=== PATIENT | male | born 1945 | race Caucasian/White ===

== ENCOUNTER 2016-09-30 19:48 | Inpatient (IN) ==
--- NOTE | 2016-09-30 20:27 | Emergency Department Note ---
START Narrative - START START: I examined this patient and my medical decision-making was reviewed with the SANDING MACHINE BUFFER/PA/Advanced Practice Nurse/Resident Physician. I agree with the documented findings, disposition and treatment plan as described except to the extent set forth below. ED attending note: Patient seen with the emergency medicine resident . Please see a copy of his note for details of the H&P, evaluation and management and disposition of this emergency Department patient. We independently had [id number] contact with the patient. Briefly: 71-year-old gentleman transferred from the [facility] for chest pain rule out acute coronary syndrome. Negative troponin. History of alcoholic cirrhotic liver disease but not of his benzos for about 2 weeks and shaky. Hypomagnesemic and 1.4. Questionable syncopal episode. Having expiratory wheezing and some hypoxia consistent with COPD flare. Admission order placed. Patient getting DuoNeb treatments here. Reviewed his paperwork and his trunk. Provided an additional 30 minutes of critical care services this patient. Awaiting hospitalist call back.
[2016-09-30] MEDS ORDERED: Ipratropium/Albuterol Neb 3 ML IH ONE (20:29)
[2016-09-30] MEDS ORDERED: methylPREDNISolone 125 MG/2 ML VIAL IVP ONE (20:40)
[2016-09-30] MEDS ORDERED: *HR* LORazepam 2 MG/ML VIAL IVP ONE (20:46)
--- NOTE | 2016-09-30 20:54 | Emergency Department Note ---
Disposition Clinical Impression: COPD exacerbation Chest pain Qualifiers: Chest pain type: unspecified Qualified Code(s): R07.9 - Chest pain, unspecified Alcohol dependence Qualifiers: Substance use status: unspecified alcohol-induced disorder Qualified Code(s): F10.29 - Alcohol dependence with unspecified alcohol-induced disorder Disposition: Admitted As Inpatient Condition: Good Referrals: NO,PCP [Non-Partnered Physician] - Forms: ED Satisfaction Letter Chest Pain HPI - General Chief Complaint: ED Chest Pain Stated Complaint: Chest Pain Time Seen by Provider: 09/30/16 19:54 Source: patient, EMS Limitations: no limitations Vital Signs Reviewed: Yes Nursing Notes Reviewed: Yes - History of Present Illness HPI Narrative: [facility] for chest pain workup in syncope evaluation. Patient has a history of CHF, anemia, seizures, COPD, depression, hepatitis, alcoholism. Patient describes initial symptoms starting his URI day prior to [place]. Reason for going to the [place] urgent [facility] today was for evaluation of increasing dyspnea and chest tightness that had relief with DuoNeb's but would return. Patient noticed his pulse ox dropping into the high 80s. Patient had loss of approximately 1 hour's worth of time but is related to possible syncope. Patient did not come to the hospital prior to she is concerned that this is his last [place]. Patient does have a history of depression and PTSD but has not been treated with medications for the last 2 weeks secondary to him missing one of his appointments. Patient also states that he takes Ativan but has been unable to secondary to missing his last refill. Severity scale (1-10): 0 - Related Data Home Medications Medication Instructions Recorded Confirmed Albuterol Sulfate [Albuterol 2 puff IH QID PRN 05/07/15 06/30/16 Inhaler] Folic Acid 1 mg PO DAILY 05/07/15 06/30/16 Formoterol Fumarate [Foradil] 12 mcg IH BID PRN 05/07/15 06/30/16 Isosorbide MONOnitrate [Isosorbide 60 mg PO DAILY 05/07/15 06/30/16 Mononitrate ER] Multivitamin [Multivitamins] 1 cap PO DAILY 05/07/15 06/30/16 Nitroglycerin [Nitrostat] 0.4 mg SL AD PRN 05/07/15 06/30/16 Omeprazole [PriLOSEC] 20 mg PO BID 05/07/15 06/30/16 Thiamine HCl [Vitamin B-1] 100 mg PO DAILY 05/07/15 06/30/16 Tiotropium [Spiriva] 18 mcg IH DAILY 05/07/15 06/30/16 Albuterol Neb [Proventil Neb] 2.5 mg IH Q6H PRN 04/24/16 06/30/16 Polyvinyl Alcohol [Artificial 1 drop BOTH EYES BID 04/24/16 06/30/16 Tears] Sucralfate [Carafate] 1 gm PO ACHS 04/24/16 06/30/16 TraMADol [Ultram] 50 mg PO Q6HR 04/24/16 06/30/16 Acetaminophen [Tylenol] 650 mg PO Q6HR PRN 06/30/16 06/30/16 Benzonatate [Tessalon] 100 mg PO TID 06/30/16 06/30/16 Guaifenesin [Diabetic Tussin Ex] 5 ml PO Q6H PRN 06/30/16 06/30/16 Ipratropium/Albuterol Neb [Duoneb] 3 ml IH Q8H PRN 06/30/16 06/30/16 Mometasone Furoate [Asmanex] 220 mcg IH DAILY 06/30/16 06/30/16 Phenytoin ER [Dilantin ER] 200 mg PO QAM 06/30/16 06/30/16 Phenytoin ER [Dilantin ER] 300 mg PO HS 06/30/16 06/30/16 Previous Rx's Medication Instructions Recorded Clopidogrel [Plavix] 75 mg PO DAILY #14 tablet 06/25/15 Magnesium Oxide [Mag-Ox] 400 mg PO BID #0 tablet 09/02/15 Sertraline [Zoloft] 150 mg PO QAM 30 Days 09/02/15 Chlordiazepoxide [Librium] 25 mg PO BIDWM #7 capsule 03/11/16 Cholecalciferol (Vitamin D3) 5,000 unit PO DAILY #30 capsule 03/11/16 [Dialyvite Vitamin D] Digoxin [Lanoxin] 0.125 mg PO DAILY tablet 03/11/16 Melatonin 12 mg PO HS PRN #0 tablet 03/11/16 Metoprolol XL (24 HR) Succ [Toprol 50 mg PO BID tab.er.24h 03/11/16 Xl] Furosemide [Lasix] 40 mg PO DAILY 30 Days 04/28/16 Potassium Chloride 20 meq PO DAILY 30 Days 04/28/16 Primidone [Mysoline] 125 mg PO TID tablet 04/28/16 Acetylcysteine 10% 2 ml MC Q8H #12 vial 05/12/16 Chlordiazepoxide [Librium] 25 mg PO BID PRN #14 capsule 07/02/16 PredniSONE 10 mg PO DAILY #41 tablet 07/02/16 RisperiDONE [RisperDAL] 0.5 mg PO HS #60 tablet 07/02/16 Allergies Allergy/AdvReac Type Severity Reaction Status Date / Time Penicillins Allergy Severe Anaphylaxis Verified 06/30/16 18:09 diphenhydramine Allergy See Verified 09/30/16 19:52 Comments fentanyl Allergy See Verified 09/30/16 19:52 Comments lidocaine Allergy See Verified 09/30/16 19:52 Comments midazolam Allergy See Verified 09/30/16 19:52 Comments venlafaxine [From Effexor] AdvReac Unknown See Verified 06/30/16 18:09 Comments All systems ED: reviewed and negative except as stated. Constitutional: Reports: chills. Denies: fever Eyes: Denies: eye pain ENT ED: Denies: ear pain Cardiovascular: Reports: chest pain. Denies: palpitations Respiratory: Reports: wheezes. Denies: cough Gastrointestinal: Denies: abdominal pain, nausea Genitourinary: Denies: urgency, dysuria Musculoskeletal: Denies: back pain, neck pain Integumentary: Denies: rash Neurological: Denies: headache, weakness Psychiatric: Denies: anxiety Endocrine: Denies: fatigue Hematological/Lymphatic: Denies: easy bleeding, easy bruising Allergic/Immunologic: Denies: facial swelling Chest Pain PMH - Past Medical History Medical history: Reports: asthma, atrial fibrillation, cirrhosis, COPD, coronary artery disease, GERD, GI bleed, hypertension, liver disease, seizures, other. Denies: no medical history Surgical history: Reports: no surgical history Psychiatric history: Reports: depression, PTSD - Social History Smoking Status: Current some day smoker Alcohol use: Reports: heavy Drug use: Reports: none Physical Exam - General Limitations: no limitations General appearance: alert, in no apparent distress - Head Head exam: atraumatic, normocephalic - Eye Eye exam: Present: normal appearance, PERRL - ENT ENT exam: normal exam, normal oropharynx - Neck Neck exam: Present: normal inspection - Chest Chest inspection: Present: normal inspection, symmetric chest wall rise - Respiratory Respiratory exam: Present: wheezes (Significant bilaterally) - Cardiovascular Cardiovascular exam: Present: regular rate, normal rhythm - Abdominal Exam Abdominal exam: Present: soft, Non-Tender, other (Hepatomegaly) - Extremities Exam Extremities exam: Present: normal inspection, full ROM Course Course Narrative: Chest x-ray performed at [facility] with impression of no significant interval change since previous study. Was noted to have prominence of bilateral reticular markings and bibasilar atelectasis. Troponin negative. Alcohol less than 3. AST 8 LC bilirubin normal. Magnesium of 1.4 which is low normal of 1.8. Potassium 3.8. Creatinine 0.76. Sodium of 142. Chloride 107. CO2 25. - Reevaluation(s) Reevaluation #1: On reevaluation patient's continues to be asymptomatic with chest pain. Given nebs improved patient's wheezing. Please patient's chest pain is related to COPD exacerbation however due to the patient's chest pain etiology as well as concern for syncopal episode patient will need admission for further evaluation and observation. - Consultations Consultation #1: Discussed with Dr. Damon. Dr. Damon requests CT of the head as patient lost consciousness for approximately 1 hour. Vital Signs Temperature 98.0 F 09/30/16 19:49 Pulse Rate 84 09/30/16 19:49 Respiratory Rate 18 09/30/16 19:49 Blood Pressure 148/105 09/30/16 19:49 O2 Sat by Pulse Oximetry 98 09/30/16 19:49 Temperature 98.0 F 09/30/16 19:49 Pulse Rate 95 09/30/16 21:18 Respiratory Rate 18 09/30/16 21:18 Blood Pressure 157/93 09/30/16 21:18 O2 Sat by Pulse Oximetry 99 09/30/16 21:18 Oxygen Delivery Oxygen Delivery Nasal Cannula Chest Pain - Medical Records Medical records reviewed: Yes I reviewed the patient's medical records. - Lab Data Lab results reviewed: Yes I reviewed the patient's lab results. - Radiology Data Radiology results reviewed: Yes I reviewed the patient's radiology results. - EKG Data EKG attestation: Yes I reviewed and interpreted this EKG. EKG results narrative: EKG shows junctional rhythm at a ventricular rate of 84 bpm. IA interval 98. QRS 94. QTC 409. Patient has no ST elevations or depressions. Patient has inverted T waves in v2. No specific acute changes when compared to 06/29/16.
[2016-09-30] MEDS ORDERED: Naloxone 0.4 MG/ML INJ IVP PRN (23:11)
[2016-09-30] MEDS ORDERED: Ondansetron ODT 4 MG TAB.RAPDIS SL PRN (23:11)
[2016-09-30] MEDS ORDERED: *HR* LORazepam 2 MG/ML VIAL IVP PRN (23:16)
--- NOTE | 2016-09-30 23:46 | Internal Med History&Physical ---
Date of Encounter: 09/30/16 Time of Encounter: 23:34 Assessment and Plan (1) Acute exacerbation of chronic obstructive airways disease Current visit: No Status: Acute worsening shortness of breath and chest tightness. Lungs sound rhonchorus on exam. Chest x-ray performed at [facility] urgent care with impression of no significant interval change since previous study. Was noted to have prominence of bilateral reticular markings and bibasilar atelectasis. Solumedrol 125mg IVP given in ED Prednisone 40mg PO daily duoneb treatments q4hr Azithromycin 500mg IVPB daily (2) Acute and chronic respiratory failure Current visit: No Status: Acute Wears 4L NC at home and bipap at night. Satting 94-99% on 4L titrate O2 to maintain O2 sat > 92% duoneb treatments Q4hr Qualifiers: Respiratory failure complication: unspecified whether with hypoxia or hypercapnia Qualified Code(s): J96.20 - Acute and chronic respiratory failure , unspecified whether with hypoxia or hypercapnia (3) Chest pain Current visit: Yes Status: Acute Reporting worsening chest "tightness". Likely related to acute COPD exacerbation, but with history of CAD and stent placement will monitor for cardiac source. Initial troponin from CT negative continous recruiting coordinator trend troponins consult cardiology Qualifiers: Chest pain type: chest pain on breathing Qualified Code(s): R07.1 - Chest pain on breathing (4) Syncope Current visit: Yes Status: Acute Patient reports episode this morning of loss of consiousness for 1 hour after sitting down for a nebulizer treatment. He has a history of seizure disorder but does not think this was a seizure. He is an alcoholic, but denies drinking more than usual prior to episode. He has a history of paroxysmal afib, rate controlled with beta rahel and digoxin. CT Head negative for acute abnormality. continuous recruiting coordinator home dose of anti-seizure medication [facility] protocol for alchohol withdrawal EEG Qualifiers: Syncope type: unspecified Qualified Code(s): R55 - Syncope and collapse (5) Chronic systolic (congestive) heart failure Current visit: Yes Status: Acute Last Echo in March 2016 showed moderate systolic dysfunction with EF of 35-40% continue home dose of lasix, diltiazem, isosorbide mononitrate. consult cardiology (6) Alcohol abuse Current visit: No Status: Chronic Patient reports drinking daily, and reports he goes through 2 liters of whiskey per week. This is cut back from previous usage. He has a significant right hand tremor, he reports is chronic, and on review of the records this was evaluated by neuro during a hospitalization in March. [facility] protocol for Alcohol withdrawal. (7) History of seizure disorder Current visit: No Status: Chronic Patient reports he has not been taking his dilantin consistently. Reports he has not had a seizure for 6 years. However, episode of syncope this morning is concerning. continue home dose of dilantin EEG (8) Paroxysmal atrial fibrillation Current visit: No Status: Chronic History of paroxysmal Afib. Heart with regular rate and rhythm on exam. EKG showed junctional rhythm. On plavix presumably due to stent placement in November of 2014. No anti-coagulation due to history of multiple GI bleeds and alcoholism. Continuous recruiting coordinator. Consult cardiology. (9) DVT prophylaxis Current visit: No Status: Acute ambulate with assistance. anti-embolic stockings Pharmacologic prophylaxis contraindicated due to history of multiple GI bleeds. Internal Medicine - H&P: HPI Chief complaint: SOB, chest tightness Admitted From: Home Plans for Post Hospital Care: Home History of present illness: Mr. Salmon is a 71 year old male with history of COPD, Chronic systolic congestive heart failure, seizure disorder, CAD, and alcoholism, who was transferred to the ED from the [place] with complaints of worsening shortness of breath, chest tightness, and an episode of syncope this morning. He reports he has had a cough for 3 months, worsening in the last week. It is generally a dry cough, but after a nebulizer treatment it is productive of white sputum. He reports the chest tightness has also been worsening in the last week. It is somewhat relieved by his nebulizer treatments but returns fairly quickly. He is on 4 L NC of O2 at home for his COPD. He also reports that this morning he sat down to take a nebulizer treatment and lost consciousness, awaking 1 hour later, and unsure of what happened. He states he did not fall asleep. He has a history of seizure disorder and does not think it was a seizure. He reports he has run out of some of his medications including his anti-seizure medication and his ativan. He denies headache, dizziness, lightheadedness, focal weakness , palpitations. He has a history of afib, and is on beta rahel and digoxin for rate control, but not on any anticoagulation due to history of multiple GI bleeds and alcoholism. CT Head in the ED showed no acute abnormality. On exam , he is alert and oriented, satting 94-99% on 4L NC. His lungs sound diffusely rhonchorus. Heart with regular rate and rhythm. Past Med Surg Social Fam HX - Past Medical History Medical history: asthma, atrial fibrillation, cirrhosis, COPD, coronary artery disease, GERD, GI bleed, hypertension, liver disease, seizures, other Psychiatric history: depression, PTSD - Past Surgical History Surgical History: angioplasty/stent - Social History Smoking Status: Current some day smoker Smokeless Tobacco Status: No Alcohol use: heavy Drug use: none - Family History Father Adopted: No Family Member Ethnicity: Non- Living Status: Hx Family Cardiac Disorders: Yes Hx Family Respiratory Disorders: Yes Hx Family Cancer: Yes Hx Family GI Disorders: No Hx Family Endocrine Disorder: No Hx Family Neuromuscular Disorders: No Hx Family Neurologic Disorders: No Hx Family HEENT Disorders: No Hx Family Autoimmune Disorders: No Mother Adopted: No Family Member Ethnicity: Non- Living Status: Hx Family Cancer: Yes (panc) Internal Medicine - H&P: Meds Albuterol Sulfate [Albuterol Inhaler] 2 puff IH QID PRN 05/07/15 [History] Folic Acid 1 mg PO DAILY 05/07/15 [History] Isosorbide MONOnitrate [Isosorbide Mononitrate ER] 30 mg PO DAILY 05/07/15 [ History] Omeprazole [PriLOSEC] 20 mg PO BID 05/07/15 [History] Thiamine HCl [Vitamin B-1] 100 mg PO DAILY 05/07/15 [History] Tiotropium [Spiriva] 18 mcg IH DAILY 05/07/15 [History] Clopidogrel [Plavix] 75 mg PO DAILY #14 tablet 06/25/15 [Rx] Magnesium Oxide [Mag-Ox] 400 mg PO BID #0 tablet 09/02/15 [Rx] Albuterol Neb [Proventil Neb] 2.5 mg IH Q6H PRN 04/24/16 [History] Sucralfate [Carafate] 1 gm PO QID 04/24/16 [History] Potassium Chloride 20 meq PO DAILY 30 Days 04/28/16 [Rx] Mometasone Furoate [Asmanex] 220 mcg IH DAILY 06/30/16 [History] Phenytoin ER [Dilantin ER] 200 mg PO QAM 06/30/16 [History] Aspirin [Lo-Dose Aspirin EC] 81 mg PO DAILY 09/30/16 [History] Buspirone HCl [Buspar] 7.5 mg PO BID PRN 09/30/16 [History] Cyanocobalamin (Vitamin B-12) [Vitamin B-12] 100 mcg PO HS 09/30/16 [History] Diltiazem HCl [Diltiazem 24Hr Cd] 240 mg PO DAILY 09/30/16 [History] Ferrous Gluconate 324 mg PO DAILY 09/30/16 [History] Furosemide [Lasix] 20 mg PO QPM 09/30/16 [History] Furosemide [Lasix] 40 mg PO QAM 09/30/16 [History] Melatonin 9 mg PO HS PRN 09/30/16 [History] Multivitamin with Minerals [Myvitalife] 1 each PO DAILY 09/30/16 [History] Olodaterol HCl [Striverdi Respimat] 2 puff IH DAILY 09/30/16 [History] Prazosin [Minipress] 3 mg PO HS 09/30/16 [History] Sertraline [Zoloft] 50 mg PO QAM 09/30/16 [History] Allergies Penicillins Allergy (Severe, Verified 06/30/16 18:09) Anaphylaxis diphenhydramine Allergy (Verified 09/30/16 19:52) See Comments fentanyl Allergy (Verified 09/30/16 19:52) See Comments lidocaine Allergy (Verified 09/30/16 19:52) See Comments midazolam Allergy (Verified 09/30/16 19:52) See Comments venlafaxine [From Effexor] Adverse Reaction (Unknown, Verified 06/30/16 18:09) See Comments "Made me go into a coma." All Systems PM: A 10-system review of systems was performed and is negative for pertinent findings except as documented above in the HPI. - Constitutional Constitutional: no chills, no fever(s), no night sweats - EENT Eyes: no change in vision, no discharge, no pain, no photophobia Nose, mouth and throat: no dysphagia, no nasal discharge, no neck pain, no sore throat - Cardiovascular Cardiovascular ROS IM: chest pain ("tightness"), dyspnea, syncope, no palpitations - Respiratory Respiratory: cough, dyspnea, dyspnea on exertion, wheezing - Gastrointestinal Gastrointestinal: diarrhea, nausea, no abdominal pain, no hematemesis, no hematochezia, no melena, no vomiting - Musculoskeletal Musculoskeletal ROS IM: no numbness, no tingling - Integumentary Integumentary IM: no rash, no unusual bruising - Neurological Neurological ROS: no confusion, no convulsions, no focal weakness, no numbness, no tingling, no tremor(s) - Psychiatric Psychiatric: anxiety - Constitutional Vitals: Temp Pulse Resp BP Pulse Ox 98.0 F 95 18 128/61 99 09/30/16 19:49 09/30/16 21:18 09/30/16 22:37 09/30/16 22:37 09/30/16 21:18 General appearance: Present: A&O X 3, no acute distress - Head Head exam: Present: atraumatic, normocephalic - Eye Eye exam: Present: PERRL, conjuntiva pink, sclera anicteric Pupils: Present: PERRL - Neck Neck exam general surgery: Present: supple, trachea midline. Absent: lymphadenopathy - Respiratory Respiratory exam: Present: rhonchi. Absent: accessory muscle use, respiratory distress, tachypnea - Cardiovascular Cardiovascular exam: Present: RRR, +S1, +S2. Absent: diastolic murmur, gallop, rubs, systolic murmur - GI/Abdominal GI/Abdominal exam: Present: normal bowel sounds, soft, no peritoneal signs. Absent: distended, tenderness - Extremities Exam Extremities exam: Present: warm, radial pulses palpable and symetrical. Absent : calf tenderness, cyanotic, pedal edema - Neurological Exam Neurological exam: Present: CN II-XII intact, oriented X3, no focal deficits. Absent: pronater drift, facial droop, speech deficit - Skin Skin exam: Present: dry, intact Internal Med - H&P Results - Labs CBC & Chem 7: 10/01/16 00:10
[2016-10-01] MEDS ORDERED: Furosemide 20 MG TABLET PO SCH (00:10)
[2016-10-01] MEDS: Ipratropium/Albuterol Neb 3 ML IH SCH ×6 (00:16→21:17)
[2016-10-01 00:27] LABS: Basophils % 0.4 %; Eosinophils % 0.7 %; Hematocrit 40.8 % (37.5-50.1); Immature Granulocytes % 0.4 % (0-4); Lymphocytes # 0.5 K/mcL (0.6-4.6); Lymphocytes % 9.8 %; Mean Corpuscular HGB Conc 34.3 g/dL (31.6-35.5); Mean Corpuscular Hemoglobin 33.9 pg (28.0-33.3); Mean Corpuscular Volume 98.8 fL (83.0-100.0); Mean Platelet Volume 10.5 fL (9.4-12.4); Monocytes # 0.1 K/mcL (0.0-1.3); Monocytes % 1.7 %; Neutrophils # 4.7 K/mcL (1.6-8.9); Platelet Count 187 K/mcL (140-400); Red Blood Count 4.13 M/mcL (4.19-5.50); Red Cell Distribution Width 14.6 % (11.5-14.5)
[2016-10-01 00:49] LABS: INR 1.1; Prothrombin Time 12.2 Seconds (9.4-12.1)
[2016-10-01 00:59] LABS: BUN/Creatinine Ratio 12 (6-26); Blood Urea Nitrogen 12 mg/dL (8-26); Calcium 9.2 mg/dL (8.6-10.8); Carbon Dioxide 20 mEq/L (19-29); Chloride 111 mEq/L (98-109); Glucose 125 mg/dL (70-99); Osmolality,Calculated 291 (280-300); Potassium 3.6 mEq/L (3.5-4.5); Sodium 140 mEq/L (136-145); eGFR For African Americans > 60 (> 60); eGFR For Non-African Americans > 60 (> 60)
[2016-10-01 01:00] LABS: Amylase 70 Units/L (25-125); Lipase 41 Units/L (8-78)
[2016-10-01] MEDS ORDERED: Levofloxacin 500 MG/100 ML 500 MG/100 ML BAG IVPB SCH (01:00)
[2016-10-01] MEDS: Azithromycin 500 MG in D5% in Water 250 ML IVPB SCH (02:17)
--- NOTE | 2016-10-01 02:29 | Event Note ---
Date of Encounter: 10/01/16 Time of Encounter: 02:19 Patients examined with MANAGER PLUMBING. The patient was sent from the [facility] because of chest pain and syncope. With regards to sing quote patient was sitting in his chair at 10 AM after he had just awakened from sleep and getting his nebulizer treatment. It seems he lost consciousness and regained back at 12 noon 2 hours later. He has not noticed incontinence to urine or stool he has not noticed tongue biting. Patient mentioned that he had ran out of the psychiatric medications including Ativan what she was taking in all .5 mg twice daily dosing. He has a history of seizures. He is also an alcoholic There is a suspicion that this may be a seizure episode. Arrythmia that long is unlikely. CT head shows no bleed. Will do EEG. [facility] protocol. Rule out acute coronary syndrome. He mentioned that he has been complaining of increased sputum production and shortness of breath. Will give the patient around-the- clock breathing treatments, oral prednisone and azithromycin for acute bronchitis.
[2016-10-01] MEDS ORDERED: *HR* LORazepam 1 MG TABLET PO ONE (02:33)
[2016-10-01] MEDS ORDERED: *HR* Heparin 5,000 UNIT/ML VIAL SQ SCH (06:00)
[2016-10-01] MEDS: Beclomethasone 80mcg MDI IH SCH (08:04)
[2016-10-01] MEDS: Isosorbide MONOnitrate (24 HR) 30 MG TAB.ER.24H PO SCH (08:46)
[2016-10-01] MEDS: Magnesium Oxide 400 MG TABLET PO SCH ×2 (08:46→20:29)
[2016-10-01] MEDS: Multivit/Ca/Min/Fe/FA 1 TAB TABLET PO SCH (08:46)
[2016-10-01] MEDS: Diltiazem CD (24hr) 240 MG CAPSULE PO SCH (08:46)
[2016-10-01] MEDS: Sucralfate 1 GM TABLET PO SCH ×4 (08:46→20:28)
[2016-10-01] MEDS: Thiamine (B-1) 100 MG TABLET PO SCH (08:46)
[2016-10-01] MEDS: Furosemide 40 MG TABLET PO SCH (08:47)
[2016-10-01] MEDS: Folic Acid 1 MG TABLET PO SCH (08:47)
[2016-10-01] MEDS: Aspirin Enteric Coated 81 MG Tablet PO SCH (08:47)
[2016-10-01] MEDS: predniSONE 20 MG TABLET PO SCH (08:47)
[2016-10-01] MEDS ORDERED: MethylPREDNISolone 40 MG/ML VIAL IVP SCH (09:00)
[2016-10-01 12:14] LABS: Amphetamine Screen,Urine Negative ng/mL (Cutoff=1000); Barbiturate Screen,Urine Negative ng/mL (Cutoff=200); Benzodiazepines Screen,Urine Negative ng/mL (Cutoff=200); Cannabinoid Screen,Urine Negative ng/mL (Cutoff = 50); Cocaine Screen,Urine Negative ng/mL (Cutoff= 300); Opiate Screen,Urine Negative ng/mL (Cutoff=300); Phencyclidine Screen,Urine Negative ng/mL (Cutoff=25)
--- NOTE | 2016-10-01 14:40 | Electrocardiograph Report ---
[facility] Test Date: 2016-09-30 Pat Name: AMLIHA SAHA Department: 105 Room: [id number] Gender: M Dev Manager: [facility] : 1945 Requested By: Harris Ma Order Number: [id number] Reading MD: Bogdan Cherry Measurements Intervals [place] Rate: 84 P: -83 MS: 98 QRS: 47 QRSD: 94 T: 50 QT: 369 QTc: 409 Interpretive Statements SINUS RHYTHM ABNORMAL RHYTHM ECG Electronically Signed On 10-01-16 14:39:39 EST by Bogdan Cherry
[2016-10-01] MEDS: *HR* LORazepam 0.5 MG TABLET PO SCH ×2 (18:12→20:29)
--- NOTE | 2016-10-01 18:27 | Neurology - Consult Note ---
Date of Encounter: 10/01/16 Time of Encounter: 18:21 Assessment and Plan (1) Syncope Current Visit: Yes Status: Acute Per history this episode of prolonged loss of memory/syncope likely provoked by hypoxia and not secondary to a seizure. The episode was not associated with tongue biting, urinary incontinence or injuries and there is clear provoking factor. It is noted that the patient has not been compliant with antiepileptic therapy since the last few months and he has not had any seizures. Recommend medical and supportive care at this time. EEG is unlikely going to change the medical management. Patient likely not going to be compliant with antiepileptic therapy. if further work up is needed to confirm or exclude diagnosis of seizure disorder then work up can be done as an outpatient, or the patient can be restarted dilantin. However, as mentioned above, patient is likely not going to be compliant with seizure medication. Please continue medical and supportive care. Will sign off at this time. Please call if any questions Qualifiers: Syncope type: unspecified Qualified Code(s): R55 - Syncope and collapse History of Present Illness Chief complaint: passing out spells and tremors HPI: Mr. Salmon is a 71 year old male with PMH significant for remote history of seizure, COPD, oxygen dependent, CAD, Alcoholism who developed an episode of syncope. Patient says that he lost air and when he loses air he passes out. He does have seizure disorder made many years ago when he was at the [employer] and then he started drinking that made the seizure worse. He says that after he cut down his drinking he no longer having seizures. Over the last few years he has been experiencing increasing medical problems, COPD and heart problems he was trying to take less medication. He says that he has not had any seizure since the last 6 years. He suppose to take dilantin for his seizures but he admits that he has not been taking dilantin since the last 4 months. he says that he knew it was not a seizure and he says it is because he loses oxygen Past Med Surg Social Fam HX - Past Medical History Medical history: asthma, atrial fibrillation, cirrhosis, COPD, coronary artery disease, GI bleed, liver disease, seizures, other Psychiatric history: depression, panic disorder, PTSD - Past Surgical History Surgical History: angioplasty/stent - Social History Smoking Status: Current some day smoker Smokeless Tobacco Status: No Alcohol use: heavy Drug use: none - Family History Father Adopted: No Family Member Ethnicity: Non- Living Status: Age at : 62 Cause of : Heart attack Hx Family Cardiac Disorders: Yes (heart attack) Hx Family Respiratory Disorders: Yes (COPD) Hx Family Cancer: Yes (Testicular) Hx Family GI Disorders: No Hx Family Genitourinary Disorders: No Hx Family Endocrine Disorder: No Hx Family Musculoskeletal Disorders: No Hx Family Neuromuscular Disorders: No Hx Family Neurologic Disorders: No Hx Family HEENT Disorders: No Hx Family Autoimmune Disorders: No Hx Family Reproductive Disorders: No Hx Family Psychosocial Disorders: Yes (Anxiety, Depression, PTSD) Hx Family Medical Disorders: No Mother Adopted: No Family Member Ethnicity: Non- Living Status: Hx Family Cancer: Yes (panc) Medications and Allergies Albuterol Sulfate [Albuterol Inhaler] 2 puff IH QID PRN 05/07/15 [History] Folic Acid 1 mg PO DAILY 05/07/15 [History] Isosorbide MONOnitrate [Isosorbide Mononitrate ER] 30 mg PO DAILY 05/07/15 [ History] Omeprazole [PriLOSEC] 20 mg PO BID 05/07/15 [History] Thiamine HCl [Vitamin B-1] 100 mg PO DAILY 05/07/15 [History] Tiotropium [Spiriva] 18 mcg IH DAILY 05/07/15 [History] Clopidogrel [Plavix] 75 mg PO DAILY #14 tablet 06/25/15 [Rx] Magnesium Oxide [Mag-Ox] 400 mg PO BID #0 tablet 09/02/15 [Rx] Albuterol Neb [Proventil Neb] 2.5 mg IH Q6H PRN 04/24/16 [History] Sucralfate [Carafate] 1 gm PO QID 04/24/16 [History] Potassium Chloride 20 meq PO DAILY 30 Days 04/28/16 [Rx] Mometasone Furoate [Asmanex] 220 mcg IH DAILY 06/30/16 [History] Phenytoin ER [Dilantin ER] 200 mg PO QAM 06/30/16 [History] Aspirin [Lo-Dose Aspirin EC] 81 mg PO DAILY 09/30/16 [History] Buspirone HCl [Buspar] 7.5 mg PO BID PRN 09/30/16 [History] Cyanocobalamin (Vitamin B-12) [Vitamin B-12] 100 mcg PO HS 09/30/16 [History] Diltiazem HCl [Diltiazem 24Hr Cd] 240 mg PO DAILY 09/30/16 [History] Ferrous Gluconate 324 mg PO DAILY 09/30/16 [History] Furosemide [Lasix] 20 mg PO QPM 09/30/16 [History] Furosemide [Lasix] 40 mg PO QAM 09/30/16 [History] Melatonin 9 mg PO HS PRN 09/30/16 [History] Multivitamin with Minerals [Myvitalife] 1 each PO DAILY 09/30/16 [History] Olodaterol HCl [Striverdi Respimat] 2 puff IH DAILY 09/30/16 [History] Prazosin [Minipress] 3 mg PO HS 09/30/16 [History] Sertraline [Zoloft] 50 mg PO QAM 09/30/16 [History] Allergies Penicillins Allergy (Severe, Verified 06/30/16 18:09) Anaphylaxis diphenhydramine Allergy (Verified 09/30/16 19:52) See Comments fentanyl Allergy (Verified 09/30/16 19:52) See Comments lidocaine Allergy (Verified 09/30/16 19:52) See Comments midazolam Allergy (Verified 09/30/16 19:52) See Comments venlafaxine [From Effexor] Adverse Reaction (Unknown, Verified 06/30/16 18:09) See Comments "Made me go into a coma." All Systems: A 10-system review of systems was performed and is negative for pertinent findings except as documented above in the HPI. 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, hip flexors, tibialis Anterior, quadriceps, toe extension (EHL), plantarflexion Motor examination - left side: 5/5: deltoids, biceps, triceps, wrist flexion, wrist extension, hip flexors, 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, quadriceps, tibialis Anterior, toe extension (EHL), plantarflexion Detailed sensory examination: other (Grossly intact) Posture: other (None) Reflex and gait examination: other (Gait not assessed) Reflexes: Biceps: 1+, Triceps: 1+, Brachioradialis: 1+, Patella: 1+, Achilles: 1 + Mental Status Examination: awake, alert, oriented to person, oriented to place, oriented to time, follows commands appropriately, answers questions appropriately, no agnosia, no aphasia, no aproxia Cranial nerve examination: PERRL, EOMI, visual dean intact, corneal reflexes brisk symmetrically, sensory to face intact, mastication intact, no facial asymmetry is present, no dysarthria, hearing is intact symmetrically, soft palate elevates bilaterally upon phonation, gag reflex intact, flexes SCM and trapezius muscles symmetrically with full power, tongue protrudes midline, no atrophy or facial fasiculations present Tremor: left upper extremity (bilateral rhythmic tremors noted, no rest tremors. no cogwheeling rigidity) Results - Laboratory Findings CBC and BMP: 10/01/16 00:10 10/01/16 00:10 Abnormal lab findings: Abnormal lab results RBC 4.13 M/mcL (4.19-5.50) L 10/01/16 00:10 MCH 33.9 pg (28.0-33.3) H 10/01/16 00:10 RDW 14.6 % (11.5-14.5) H 10/01/16 00:10 Lymphocytes # 0.5 K/mcL (0.6-4.6) L 10/01/16 00:10 PT 12.2 Seconds (9.4-12.1) H 10/01/16 00:10 Chloride 111 mEq/L (98-109) H 10/01/16 00:10 Glucose 125 mg/dL (70-99) H 10/01/16 00:10 B-Natriuretic Peptide 105 pg/mL (0-100) H 10/01/16 00:10 Phenytoin < 0.5 mcg/mL (10-20) L 10/01/16 04:46 Consult Discharge Plan - Plan [facility]errals: [facility] [Primary Care Provider] -
--- NOTE | 2016-10-01 20:20 | Internal Med Progress Note ---
Date of Encounter: 10/01/16 Time of Encounter: 14:00 - Assessment and plan (1) Acute exacerbation of chronic obstructive airways disease Current Visit: Yes Status: Acute Assessment and plan: Continue abx, steroids, oxygen and aerosols. Will taper as above. (2) Acute and chronic respiratory failure Current Visit: No Status: Acute Assessment and plan: Continue oxygen supplementation. Qualifiers: Respiratory failure complication: hypoxia Qualified Code(s): J96.21 - Acute and chronic respiratory failure with hypoxia (3) Chest pain Current Visit: Yes Status: Acute Assessment and plan: Following at this time. Qualifiers: Chest pain type: chest pain on breathing Qualified Code(s): R07.1 - Chest pain on breathing (4) Syncope Current Visit: Yes Status: Acute Assessment and plan: Neuro evaluation appreciated. Qualifiers: Syncope type: unspecified Qualified Code(s): R55 - Syncope and collapse (5) Chronic systolic (congestive) heart failure Current Visit: Yes Status: Acute Assessment and plan: Continue home meds. (6) Alcohol dependence Current Visit: Yes Status: Acute Assessment and plan: CIWA ordered. Qualifiers: Substance use status: alcohol-induced anxiety disorder Qualified Code(s): F10.280 - Alcohol dependence with alcohol-induced anxiety disorder (7) History of seizure disorder Current Visit: No Status: Chronic (8) Tobacco abuse Current Visit: No Status: Chronic (9) Paroxysmal atrial fibrillation Current Visit: No Status: Chronic Assessment and plan: Monitoring. No anticoagulation due to risks for bleeding. - Subjective Interval history: Mr Salmon is currently admitted for unresponsive episode and acute exac COPD. He is moderate to high risk due to potentially worsening of respiratory status and neurologic status. Mr. Salmon feels very anxious. He takes Ativan at home and had been taking more of it than prescribed so he ran out of it early. No CP now. No GI issues. - Constitutional Vitals: Temp Pulse Resp BP Pulse Ox 97.8 F 87 19 86/49 98 10/01/16 15:00 10/01/16 15:00 10/01/16 16:16 10/01/16 15:00 10/01/16 16:16 General appearance: Present: A&O X 3, answers questions appropriately - Head Head exam: Present: normocephalic - Eye Eye exam: Present: conjuntiva pink - ENT ENT exam: Present: mucous membranes dry - Respiratory Respiratory exam: Present: decreased breath sounds, CTAB - Cardiovascular Cardiovascular exam: Present: RRR. Absent: tachycardia - GI/Abdominal GI/Abdominal exam: Present: soft. Absent: mass - Extremities Exam Extremities exam: Present: warm. Absent: pedal edema - Neurological Exam Neurological exam: Present: alert, oriented X3 Additional comments: Tremoring noted. - Psychiatric Psychiatric exam: Present: agitated, anxious Internal Medicine: Result - Labs CBC & Chem 7: 10/01/16 00:10 10/01/16 00:10 Labs: Short CBC 10/01/16 Range/Units 00:10 WBC 5.4 (4.3-11.1) K/mcL Hgb 14.0 (12.9-16.9) g/dL Hct 40.8 (37.5-50.1) % Plt Count 187 (140-400) K/mcL Neutrophils # 4.7 (1.6-8.9) K/mcL BMP 10/01/16 00:10 Sodium 140 Potassium 3.6 Chloride 111 H Carbon Dioxide 20 BUN 12 Creatinine 1.01 Glucose 125 H Calcium 9.2 Cardiac Enzymes 10/01/16 10/01/16 10/01/16 Range/Units 00:10 04:46 10:41 Troponin I 0.00 0.00 0.01 (0-0.03) ng/mL - ABG Interpretation ABG results: PT/INR, D-dimer PT 12.2 Seconds (9.4-12.1) H 10/01/16 00:10 Consult Discharge Plan - Plan [facility]errals: [facility] [Primary Care Provider] -
[2016-10-01] MEDS: Acetaminophen 325 MG TABLET PO PRN (20:28)
[2016-10-01] MEDS ORDERED: Cyanocobalamin (B-12) 1,000 MCG TABLET PO SCH (21:00)
[2016-10-01] MEDS: Melatonin 3 MG TABLET PO PRN (21:41)
[2016-10-02] MEDS: *HR* LORazepam 2 MG/ML VIAL IVP PRN ×3 (00:18→21:53)
[2016-10-02] MEDS: Ipratropium/Albuterol Neb 3 ML IH SCH ×6 (00:51→20:34)
[2016-10-02] MEDS: Azithromycin 500 MG in D5% in Water 250 ML IVPB SCH (01:43)
[2016-10-02 05:07] LABS: Hematocrit 35.8 % (37.5-50.1); Mean Corpuscular HGB Conc 33.8 g/dL (31.6-35.5); Mean Corpuscular Hemoglobin 33.2 pg (28.0-33.3); Mean Corpuscular Volume 98.4 fL (83.0-100.0); Mean Platelet Volume 10.6 fL (9.4-12.4); Platelet Count 164 K/mcL (140-400); Red Blood Count 3.64 M/mcL (4.19-5.50); Red Cell Distribution Width 14.7 % (11.5-14.5)
[2016-10-02 05:20] LABS: Hemoglobin 12.1 g/dL (12.9-16.9)
[2016-10-02 05:23] LABS: Alanine Aminotransferase 21 Units/L (0-55); Albumin 2.9 g/dL (3.5-5.0); Alkaline Phosphatase 53 Units/L (38-126); Aspartate Amino Transferase 14 Units/L (5-34); BUN/Creatinine Ratio 22 (6-26); Bilirubin,Total 0.3 mg/dL (0.2-1.2); Blood Urea Nitrogen 18 mg/dL (8-26); Calcium 8.7 mg/dL (8.6-10.8); Carbon Dioxide 24 mEq/L (19-29); Chloride 107 mEq/L (98-109); Globulin 2.9 g/dL (2.4-3.5); Glucose 117 mg/dL (70-99); Magnesium 1.1 mg/dL (1.6-2.6); Osmolality,Calculated 289 (280-300); Potassium 3.9 mEq/L (3.5-4.5); Sodium 138 mEq/L (136-145); Total Protein 5.8 g/dL (6.0-8.3); eGFR For African Americans > 60 (> 60); eGFR For Non-African Americans > 60 (> 60)
[2016-10-02] MEDS: Beclomethasone 80mcg MDI IH SCH (07:30)
[2016-10-02] MEDS: *HR* LORazepam 0.5 MG TABLET PO SCH ×2 (10:30→21:52)
[2016-10-02] MEDS: predniSONE 20 MG TABLET PO SCH (10:30)
[2016-10-02] MEDS: Thiamine (B-1) 100 MG TABLET PO SCH (10:30)
[2016-10-02] MEDS: Folic Acid 1 MG TABLET PO SCH (10:30)
[2016-10-02] MEDS: Sucralfate 1 GM TABLET PO SCH ×4 (10:30→21:53)
[2016-10-02] MEDS: Multivit/Ca/Min/Fe/FA 1 TAB TABLET PO SCH (10:31)
[2016-10-02] MEDS: Diltiazem CD (24hr) 240 MG CAPSULE PO SCH (10:31)
[2016-10-02] MEDS: Furosemide 40 MG TABLET PO SCH (10:31)
[2016-10-02] MEDS: Isosorbide MONOnitrate (24 HR) 30 MG TAB.ER.24H PO SCH (10:31)
[2016-10-02] MEDS: Magnesium Oxide 400 MG TABLET PO SCH ×2 (10:31→21:53)
[2016-10-02] MEDS: Aspirin Enteric Coated 81 MG Tablet PO SCH (10:31)
[2016-10-02] MEDS: Acetaminophen 325 MG TABLET PO PRN ×2 (10:39→18:53)
--- NOTE | 2016-10-02 11:41 | Electrocardiograph Report ---
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
[2016-10-02] MEDS ORDERED: Magnesium Sulfate 2 GM in D5% in Water 100 ML IV ONE (13:22)
[2016-10-02] MEDS: methylPREDNISolone 125 MG/2 ML VIAL IVP SCH (17:46)
[2016-10-02] MEDS ORDERED: 0.9 % Sodium Chloride 1,000 ML IVC ONE (17:55)
--- NOTE | 2016-10-02 18:37 | Internal Med Progress Note ---
Date of Encounter: 10/02/16 Time of Encounter: 11:45 - Assessment and plan (1) Acute exacerbation of chronic obstructive airways disease Current Visit: Yes Status: Acute Assessment and plan: Change to IV steroids today and continue other meds as previously ordered. Hopefully will be able to taper beginning tomorrow. (2) Acute and chronic respiratory failure Current Visit: No Status: Acute Assessment and plan: Continue oxygen supplementation. Qualifiers: Respiratory failure complication: hypoxia Qualified Code(s): J96.21 - Acute and chronic respiratory failure with hypoxia (3) Chest pain Current Visit: Yes Status: Acute Assessment and plan: Following at this time. Seems to be somewhat better today. Qualifiers: Chest pain type: chest pain on breathing Qualified Code(s): R07.1 - Chest pain on breathing (4) Syncope Current Visit: Yes Status: Acute Assessment and plan: Neuro evaluation appreciated. No further episodes. Qualifiers: Syncope type: unspecified Qualified Code(s): R55 - Syncope and collapse (5) Chronic systolic (congestive) heart failure Current Visit: Yes Status: Acute Assessment and plan: Continue home meds. (6) Alcohol dependence Current Visit: Yes Status: Acute Assessment and plan: CIWA ordered. 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 No anticoagulation due to risks for bleeding. (8) History of seizure disorder Current Visit: No Status: Chronic (9) Tobacco abuse Current Visit: No Status: Chronic - Subjective Interval history: Mr Salmon is currently admitted for unresponsive episode and acute exac COPD. He is moderate to high risk due to potentially worsening of respiratory status and neurologic status. Mr. Salmon feels less anxious today. He is less shaky. Wants to be on IV steroids as he feels they work better. No further neuro events. No GI symptoms. - Constitutional Vitals: Temp Pulse Resp BP Pulse Ox 98.2 F 86 18 90/44 95 10/02/16 15:03 10/02/16 15:03 10/02/16 16:34 10/02/16 17:50 10/02/16 16:34 General appearance: Present: A&O X 3, answers questions appropriately - Head Head exam: Present: normocephalic - Eye Eye exam: Present: EOMI, conjuntiva pink - ENT ENT exam: Present: mucous membranes moist - Respiratory Respiratory exam: Present: decreased breath sounds, wheezes - Cardiovascular Cardiovascular exam: Present: irregular rhythm. Absent: tachycardia - GI/Abdominal GI/Abdominal exam: Present: soft. Absent: mass, tenderness - Extremities Exam Extremities exam: Present: pedal edema, warm - Neurological Exam Neurological exam: Present: alert, oriented X3 Additional comments: Still with some tremor/shaky but less than yesterday. - Psychiatric Psychiatric exam: Present: anxious - Skin Skin exam: Present: warm. Absent: rash Internal Medicine: Result - Labs CBC & Chem 7: 10/02/16 04:46 10/02/16 04:46 Labs: Short CBC 10/02/16 Range/Units 04:46 WBC 9.0 D (4.3-11.1) K/mcL Hgb 12.1 L D (12.9-16.9) g/dL Hct 35.8 L (37.5-50.1) % Plt Count 164 (140-400) K/mcL [facility] 10/02/16 04:46 Sodium 138 Potassium 3.9 Chloride 107 Carbon Dioxide 24 BUN 18 Creatinine 0.82 Glucose 117 H Calcium 8.7 Liver Function 10/02/16 Range/Units 04:46 Total Bilirubin 0.3 (0.2-1.2) mg/dL AST 14 (5-34) Units/L ALT 21 (0-55) Units/L Alkaline Phosphatase 53 (38-126) Units/L Albumin 2.9 L (3.5-5.0) g/dL - ABG Interpretation ABG results: PT/INR, D-dimer PT 12.2 Seconds (9.4-12.1) H 10/01/16 00:10 Consult Discharge Plan - Plan [facility]errals: [facility] [Primary Care Provider] -
[2016-10-02] MEDS: Melatonin 3 MG TABLET PO PRN (21:53)
[2016-10-03] MEDS: Ipratropium/Albuterol Neb 3 ML IH SCH ×7 (00:05→23:09)
[2016-10-03] MEDS: Azithromycin 500 MG in D5% in Water 250 ML IVPB SCH (00:14)
[2016-10-03] MEDS: methylPREDNISolone 125 MG/2 ML VIAL IVP SCH ×3 (00:14→16:30)
[2016-10-03] MEDS: Acetaminophen 325 MG TABLET PO PRN ×3 (04:49→21:19)
[2016-10-03] MEDS: *HR* LORazepam 2 MG/ML VIAL IVP PRN ×2 (04:49→14:40)
[2016-10-03 07:08] LABS: Hematocrit 35.9 % (37.5-50.1); Hemoglobin 12.4 g/dL (12.9-16.9); Mean Corpuscular HGB Conc 34.5 g/dL (31.6-35.5); Mean Corpuscular Hemoglobin 34.2 pg (28.0-33.3); Mean Corpuscular Volume 98.9 fL (83.0-100.0); Mean Platelet Volume 11.1 fL (9.4-12.4); Platelet Count 143 K/mcL (140-400); Red Blood Count 3.63 M/mcL (4.19-5.50); Red Cell Distribution Width 14.5 % (11.5-14.5)
[2016-10-03 07:26] LABS: BUN/Creatinine Ratio 25 (6-26); Blood Urea Nitrogen 19 mg/dL (8-26); Calcium 8.6 mg/dL (8.6-10.8); Carbon Dioxide 22 mEq/L (19-29); Chloride 104 mEq/L (98-109); Glucose 143 mg/dL (70-99); Osmolality,Calculated 285 (280-300); Potassium 4.4 mEq/L (3.5-4.5); Sodium 135 mEq/L (136-145); eGFR For African Americans > 60 (> 60); eGFR For Non-African Americans > 60 (> 60)
[2016-10-03] MEDS: Beclomethasone 80mcg MDI IH SCH (08:01)
--- NOTE | 2016-10-03 08:58 | Internal Med Progress Note ---
Date of Encounter: 10/03/16 Time of Encounter: 08:20 - Assessment and plan (1) Acute and chronic respiratory failure Current Visit: No Status: Acute Assessment and plan: Doing somewhat better with change in meds yesterday. Taper oxygen as able. Qualifiers: Respiratory failure complication: hypoxia Qualified Code(s): J96.21 - Acute and chronic respiratory failure with hypoxia (2) Acute exacerbation of chronic obstructive airways disease Current Visit: Yes Status: Acute Assessment and plan: Seems to be improving with the change to IV steroids. No new issues. Will begin taper tomorrow. (3) Chest pain Current Visit: Yes Status: Acute Assessment and plan: Doing better today. Continue PRN medications. Qualifiers: Chest pain type: chest pain on breathing Qualified Code(s): R07.1 - Chest pain on breathing (4) Syncope Current Visit: Yes Status: Acute Assessment and plan: Has not recurred. Appears to have been related to lack of benzodiazepine +/- alcohol. Also has seizure disorder which he has not been taking meds. Supportive care for now. Qualifiers: Syncope type: unspecified Qualified Code(s): R55 - Syncope and collapse (5) Chronic systolic (congestive) heart failure Current Visit: Yes Status: Acute Assessment and plan: Continue home meds. (6) Alcohol dependence Current Visit: Yes Status: Acute Assessment and plan: CIWA ordered. Seems to be doing better. 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 No anticoagulation due to risks for bleeding. (8) History of seizure disorder Current Visit: No Status: Chronic (9) Tobacco abuse Current Visit: No Status: Chronic - Subjective Interval history: Mr Salmon is currently admitted for unresponsive episode and acute exac COPD. He is moderate to high risk due to potentially worsening of respiratory status and neurologic status. Mr. Salmon overall is beginning to feel better. Slept better last night. No new symptoms. Breathing a little better today after adjustments yesterday. No GI symptoms. No fever/chills. - Constitutional Vitals: Temp Pulse Resp BP Pulse Ox 97.5 F L 76 16 116/61 95 10/03/16 07:02 10/03/16 07:02 10/03/16 07:02 10/03/16 07:02 10/03/16 07:02 General appearance: Present: A&O X 3, answers questions appropriately - Head Head exam: Present: normocephalic - Eye Eye exam: Present: conjuntiva pink - ENT ENT exam: Present: mucous membranes moist - Respiratory Respiratory exam: Present: decreased breath sounds, CTAB. Absent: rales, rhonchi, wheezes - GI/Abdominal GI/Abdominal exam: Present: soft. Absent: mass, tenderness - Extremities Exam Extremities exam: Present: pedal edema, warm - Neurological Exam Neurological exam: Present: alert, oriented X3, no focal deficits Additional comments: Appears to have less tremor today. - Psychiatric Psychiatric exam: Present: anxious - Skin Skin exam: Present: warm. Absent: rash Internal Medicine: Result - Labs CBC & Chem 7: 10/03/16 06:48 10/03/16 06:48 Labs: Short CBC 10/03/16 Range/Units 06:48 WBC 6.5 (4.3-11.1) K/mcL Hgb 12.4 L (12.9-16.9) g/dL Hct 35.9 L (37.5-50.1) % Plt Count 143 (140-400) K/mcL BMP 10/03/16 06:48 Sodium 135 L Potassium 4.4 Chloride 104 Carbon Dioxide 22 BUN 19 Creatinine 0.76 Glucose 143 H Calcium 8.6 - ABG Interpretation ABG results: PT/INR, D-dimer PT 12.2 Seconds (9.4-12.1) H 10/01/16 00:10 Consult Discharge Plan - Plan [facility]errals: [facility] [Primary Care Provider] -
[2016-10-03] MEDS: Isosorbide MONOnitrate (24 HR) 30 MG TAB.ER.24H PO SCH (10:02)
[2016-10-03] MEDS: Aspirin Enteric Coated 81 MG Tablet PO SCH (10:03)
[2016-10-03] MEDS: Sucralfate 1 GM TABLET PO SCH ×4 (10:03→21:19)
[2016-10-03] MEDS: Thiamine (B-1) 100 MG TABLET PO SCH (10:03)
[2016-10-03] MEDS: Furosemide 40 MG TABLET PO SCH (10:03)
[2016-10-03] MEDS: Folic Acid 1 MG TABLET PO SCH (10:07)
[2016-10-03] MEDS: Multivit/Ca/Min/Fe/FA 1 TAB TABLET PO SCH (10:07)
[2016-10-03] MEDS: *HR* LORazepam 0.5 MG TABLET PO SCH ×2 (10:07→21:19)
[2016-10-03] MEDS: Diltiazem CD (24hr) 240 MG CAPSULE PO SCH (10:07)
[2016-10-03] MEDS: Magnesium Oxide 400 MG TABLET PO SCH ×2 (10:07→21:19)
[2016-10-03] MEDS: Melatonin 3 MG TABLET PO PRN (21:19)
[2016-10-03] MEDS: Furosemide 40 MG/4 ML VIAL IVP SCH (21:20)
[2016-10-04] MEDS: Azithromycin 500 MG in D5% in Water 250 ML IVPB SCH (01:15)
[2016-10-04] MEDS: methylPREDNISolone 125 MG/2 ML VIAL IVP SCH ×3 (01:16→18:31)
[2016-10-04] MEDS: Acetaminophen 325 MG TABLET PO PRN ×3 (03:36→22:11)
[2016-10-04] MEDS: *HR* LORazepam 2 MG/ML VIAL IVP PRN ×2 (03:39→14:58)
[2016-10-04] MEDS: Ipratropium/Albuterol Neb 3 ML IH SCH ×5 (03:43→21:41)
[2016-10-04 05:43] LABS: BUN/Creatinine Ratio 28 (6-26); Blood Urea Nitrogen 27 mg/dL (8-26); Calcium 8.3 mg/dL (8.6-10.8); Carbon Dioxide 28 mEq/L (19-29); Chloride 103 mEq/L (98-109); Glucose 177 mg/dL (70-99); Magnesium 1.6 mg/dL (1.6-2.6); Osmolality,Calculated 293 (280-300); Potassium 3.5 mEq/L (3.5-4.5); Sodium 137 mEq/L (136-145); eGFR For African Americans > 60 (> 60); eGFR For Non-African Americans > 60 (> 60)
[2016-10-04] MEDS: Multivit/Ca/Min/Fe/FA 1 TAB TABLET PO SCH (09:51)
[2016-10-04] MEDS: Thiamine (B-1) 100 MG TABLET PO SCH (09:51)
[2016-10-04] MEDS: Isosorbide MONOnitrate (24 HR) 30 MG TAB.ER.24H PO SCH (09:51)
[2016-10-04] MEDS: *HR* LORazepam 0.5 MG TABLET PO SCH ×2 (09:51→22:11)
[2016-10-04] MEDS: Folic Acid 1 MG TABLET PO SCH (09:51)
[2016-10-04] MEDS: Sucralfate 1 GM TABLET PO SCH ×4 (09:52→22:12)
[2016-10-04] MEDS: Aspirin Enteric Coated 81 MG Tablet PO SCH (09:52)
[2016-10-04] MEDS: Diltiazem CD (24hr) 240 MG CAPSULE PO SCH (09:52)
[2016-10-04] MEDS: Magnesium Oxide 400 MG TABLET PO SCH ×2 (09:52→22:12)
[2016-10-04] MEDS: Furosemide 40 MG/4 ML VIAL IVP SCH ×2 (09:53→22:12)
[2016-10-04] MEDS: Beclomethasone 80mcg MDI IH SCH (10:59)
--- NOTE | 2016-10-04 18:51 | Internal Med Progress Note ---
Date of Encounter: 10/04/16 Time of Encounter: 08:50 - Assessment and plan (1) Acute and chronic respiratory failure Current Visit: No Status: Acute Assessment and plan: Slowly improving with current treatment. Continue as is for now. Qualifiers: Respiratory failure complication: hypoxia Qualified Code(s): J96.21 - Acute and chronic respiratory failure with hypoxia (2) Acute exacerbation of chronic obstructive airways disease Current Visit: Yes Status: Acute Assessment and plan: Start taper of steroids and continue other orders as is for now. (3) Chest pain Current Visit: Yes Status: Acute Assessment and plan: Doing better today. Continue PRN medications. Qualifiers: Chest pain type: chest pain on breathing Qualified Code(s): R07.1 - Chest pain on breathing (4) Syncope Current Visit: Yes Status: Acute Assessment and plan: Has not recurred. Appears to have been related to lack of benzodiazepine +/- alcohol. Also has seizure disorder which he has not been taking meds. Supportive care for now. Qualifiers: Syncope type: unspecified Qualified Code(s): R55 - Syncope and collapse (5) Chronic systolic (congestive) heart failure Current Visit: Yes Status: Acute Assessment and plan: Continue home meds. Have been diuresing a little more and he is doing better. (6) Alcohol dependence Current Visit: Yes Status: Acute Assessment and plan: CIWA ordered. Seems to be doing better. 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 No anticoagulation due to risks for bleeding. (8) History of seizure disorder Current Visit: No Status: Chronic (9) Tobacco abuse Current Visit: No Status: Chronic - Subjective Interval history: Mr Salmon is currently admitted for unresponsive episode and acute exac COPD. He is moderate to high risk due to potentially worsening of respiratory status and neurologic status. Mr. Salmon slept better. He feels he is starting to breathe better. No new issues overnight. No fever or chills. No GI symptoms. - Constitutional Vitals: Temp Pulse Resp BP Pulse Ox 97.8 F 74 16 91/48 97 10/04/16 15:00 10/04/16 15:00 10/04/16 16:44 10/04/16 15:00 10/04/16 16:44 General appearance: Present: A&O X 3, answers questions appropriately - Head Head exam: Present: normocephalic - Eye Eye exam: Present: conjuntiva pink - ENT ENT exam: Present: mucous membranes dry - Respiratory Respiratory exam: Present: decreased breath sounds, rhonchi - Cardiovascular Cardiovascular exam: Present: RRR. Absent: tachycardia - GI/Abdominal GI/Abdominal exam: Present: soft. Absent: mass, tenderness - Extremities Exam Extremities exam: Present: pedal edema, warm - Neurological Exam Neurological exam: Present: alert, oriented X3 - Skin Skin exam: Present: warm. Absent: rash Internal Medicine: Result - Labs CBC & Chem 7: 10/03/16 06:48 10/04/16 05:01 Labs: BMP 10/04/16 05:01 Sodium 137 Potassium 3.5 Chloride 103 Carbon Dioxide 28 BUN 27 H Creatinine 0.95 Glucose 177 H Calcium 8.3 L - ABG Interpretation ABG results: PT/INR, D-dimer PT 12.2 Seconds (9.4-12.1) H 10/01/16 00:10 - VTE Documentation of Mechanical Device: Graduated compression elastic hosiery Consult Discharge Plan - Plan [facility]errals: [facility] [Primary Care Provider] -
[2016-10-04] MEDS: Melatonin 3 MG TABLET PO PRN (22:25)
[2016-10-05] MEDS: Ipratropium/Albuterol Neb 3 ML IH SCH ×7 (00:23→23:22)
[2016-10-05] MEDS: Azithromycin 500 MG in D5% in Water 250 ML IVPB SCH (00:36)
[2016-10-05] MEDS: *HR* LORazepam 2 MG/ML VIAL IVP PRN ×6 (00:36→20:53)
[2016-10-05] MEDS: methylPREDNISolone 125 MG/2 ML VIAL IVP SCH ×2 (03:18→16:50)
[2016-10-05] MEDS: Beclomethasone 80mcg MDI IH SCH (07:42)
[2016-10-05] MEDS: Furosemide 40 MG/4 ML VIAL IVP SCH ×2 (09:43→20:53)
[2016-10-05] MEDS: Thiamine (B-1) 100 MG TABLET PO SCH (09:44)
[2016-10-05] MEDS: Multivit/Ca/Min/Fe/FA 1 TAB TABLET PO SCH (09:44)
[2016-10-05] MEDS: Isosorbide MONOnitrate (24 HR) 30 MG TAB.ER.24H PO SCH (09:44)
[2016-10-05] MEDS: Folic Acid 1 MG TABLET PO SCH (09:44)
[2016-10-05] MEDS: Aspirin Enteric Coated 81 MG Tablet PO SCH (09:44)
[2016-10-05] MEDS: Sucralfate 1 GM TABLET PO SCH ×4 (09:44→20:53)
[2016-10-05] MEDS: Diltiazem CD (24hr) 240 MG CAPSULE PO SCH (09:44)
[2016-10-05] MEDS: *HR* LORazepam 0.5 MG TABLET PO SCH ×2 (09:44→20:53)
[2016-10-05] MEDS: Magnesium Oxide 400 MG TABLET PO SCH ×2 (09:44→20:53)
--- NOTE | 2016-10-05 17:26 | Internal Med Progress Note ---
Date of Encounter: 10/05/16 Time of Encounter: 08:15 - Assessment and plan (1) Acute and chronic respiratory failure Current Visit: No Status: Acute Assessment and plan: Continues to slowly improve. Continue current plan of care. Qualifiers: Respiratory failure complication: hypoxia Qualified Code(s): J96.21 - Acute and chronic respiratory failure with hypoxia (2) Acute exacerbation of chronic obstructive airways disease Current Visit: Yes Status: Acute Assessment and plan: Steroids decreased yesterday. Seems to be slowly improving. Will continue current plan today. (3) Chest pain Current Visit: Yes Status: Acute Assessment and plan: Doing better today. Continue PRN medications. Qualifiers: Chest pain type: chest pain on breathing Qualified Code(s): R07.1 - Chest pain on breathing (4) Syncope Current Visit: Yes Status: Acute Assessment and plan: Has not recurred. Appears to have been related to lack of benzodiazepine +/- alcohol. Also has seizure disorder which he has not been taking meds. Continue supportive care. No changes for now. Qualifiers: Syncope type: unspecified Qualified Code(s): R55 - Syncope and collapse (5) Chronic systolic (congestive) heart failure Current Visit: Yes Status: Acute Assessment and plan: Continue home meds. Doing better with increased diuresis. (6) Alcohol dependence Current Visit: Yes Status: Acute Assessment and plan: CIWA ordered. Continues to require IV Ativan. Will change to PO if persists. 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 No anticoagulation due to risks for bleeding. (8) History of seizure disorder Current Visit: No Status: Chronic (9) Tobacco abuse Current Visit: No Status: Chronic - Subjective Interval history: Mr Salmon is currently admitted for unresponsive episode and acute exac COPD. He is moderate to high risk due to potentially worsening of respiratory status and neurologic status. Mr. Salmon has no new complaints at this time. Slept OK. Still feels anxious. Breathing continues to slowly improve. No GI symptoms. No CP. - Constitutional Vitals: Temp Pulse Resp BP Pulse Ox 97.7 F 80 18 95/54 95 10/05/16 11:00 10/05/16 15:00 10/05/16 15:48 01/02/17 15:00 10/05/16 15:48 General appearance: Present: A&O X 3, answers questions appropriately - Head Head exam: Present: normocephalic - Eye Eye exam: Present: conjuntiva pink - ENT ENT exam: Present: mucous membranes dry - Respiratory Respiratory exam: Present: decreased breath sounds, CTAB - Cardiovascular Cardiovascular exam: Present: RRR. Absent: tachycardia - GI/Abdominal GI/Abdominal exam: Present: soft. Absent: mass, tenderness - Extremities Exam Extremities exam: Present: pedal edema, warm - Neurological Exam Neurological exam: Present: alert, oriented X3 Additional comments: Still shaky. - Skin Skin exam: Present: dry, warm. Absent: rash Internal Medicine: Result - Labs CBC & Chem 7: 10/03/16 06:48 10/04/16 05:01 - ABG Interpretation ABG results: PT/INR, D-dimer PT 12.2 Seconds (9.4-12.1) H 10/01/16 00:10 - VTE Documentation of Mechanical Device: Graduated compression elastic hosiery Consult Discharge Plan - Plan [facility]Primary Care Provider[facility] -
[2016-10-05] MEDS: MethylPREDNISolone 40 MG/ML VIAL IVP SCH (17:37)
[2016-10-06] MEDS: Azithromycin 500 MG in D5% in Water 250 ML IVPB SCH
[2016-10-06] MEDS: Acetaminophen 325 MG TABLET PO PRN ×2 (00:39→11:55)
[2016-10-06] MEDS ORDERED: *HR* HYDROcodone/Acet 5/325 mg TABLET PO ONE (01:31)
[2016-10-06] MEDS ORDERED: *HR* Morphine 2 MG/ML SYRINGE IVP ONE (01:35)
[2016-10-06] MEDS: Ipratropium/Albuterol Neb 3 ML IH SCH ×6 (03:20→23:25)
[2016-10-06] MEDS: *HR* LORazepam 2 MG/ML VIAL IVP PRN ×2 (05:41→20:16)
[2016-10-06] MEDS: MethylPREDNISolone 40 MG/ML VIAL IVP SCH ×2 (05:41→17:45)
[2016-10-06 07:41] LABS: Alanine Aminotransferase 72 Units/L (0-55); Albumin 2.6 g/dL (3.5-5.0); Albumin/Globulin Ratio 0.9 (1.1-2.2); Alkaline Phosphatase 41 Units/L (38-126); Aspartate Amino Transferase 41 Units/L (5-34); BUN/Creatinine Ratio 36 (6-26); Bilirubin,Total 0.2 mg/dL (0.2-1.2); Blood Urea Nitrogen 29 mg/dL (8-26); Calcium 8.3 mg/dL (8.6-10.8); Carbon Dioxide 29 mEq/L (19-29); Chloride 99 mEq/L (98-109); Globulin 2.8 g/dL (2.4-3.5); Glucose 125 mg/dL (70-99); Magnesium 1.6 mg/dL (1.6-2.6); Osmolality,Calculated 291 (280-300); Potassium 3.4 mEq/L (3.5-4.5); Sodium 137 mEq/L (136-145); Total Protein 5.4 g/dL (6.0-8.3); eGFR For African Americans > 60 (> 60); eGFR For Non-African Americans > 60 (> 60)
[2016-10-06] MEDS: Beclomethasone 80mcg MDI IH SCH (08:07)
[2016-10-06] MEDS: Furosemide 40 MG/4 ML VIAL IVP SCH ×2 (08:44→20:05)
[2016-10-06] MEDS: Multivit/Ca/Min/Fe/FA 1 TAB TABLET PO SCH (08:44)
[2016-10-06] MEDS: Thiamine (B-1) 100 MG TABLET PO SCH (08:45)
[2016-10-06] MEDS: Diltiazem CD (24hr) 240 MG CAPSULE PO SCH (08:45)
[2016-10-06] MEDS: *HR* LORazepam 0.5 MG TABLET PO SCH ×2 (08:45→20:04)
[2016-10-06] MEDS: Folic Acid 1 MG TABLET PO SCH (08:45)
[2016-10-06] MEDS: Magnesium Oxide 400 MG TABLET PO SCH ×2 (08:45→20:04)
[2016-10-06] MEDS: Aspirin Enteric Coated 81 MG Tablet PO SCH (08:45)
[2016-10-06] MEDS: Sucralfate 1 GM TABLET PO SCH ×4 (08:45→20:05)
[2016-10-06] MEDS: Isosorbide MONOnitrate (24 HR) 30 MG TAB.ER.24H PO SCH (08:45)
--- NOTE | 2016-10-06 15:34 | Internal Med Progress Note ---
<WilfredoLam Quiroga - Last Filed: 10/06/16 17:14> Date of Encounter: 10/06/16 Time of Encounter: 15:28 - Assessment and plan (1) Acute and chronic respiratory failure Current Visit: No Status: Acute Assessment and plan: Continues to slowly improve. Continue current plan of care. Qualifiers: Respiratory failure complication: hypoxia Qualified Code(s): J96.21 - Acute and chronic respiratory failure with hypoxia (2) Acute exacerbation of chronic obstructive airways disease Current Visit: Yes Status: Acute Assessment and plan: Steroids decreased 2 days ago. Seems to be slowly improving. Will continue current plan. (3) Chest pain Current Visit: Yes Status: Acute Assessment and plan: Doing better today, pain associated with breathing. Continue Tylenol for pain. Qualifiers: Chest pain type: chest pain on breathing Qualified Code(s): R07.1 - Chest pain on breathing (4) Syncope Current Visit: Yes Status: Acute Assessment and plan: Has not recurred. Appears to have been related to lack of benzodiazepine +/- alcohol. Also has seizure disorder which he has not been taking meds. Continue supportive care. No changes for now. Qualifiers: Syncope type: unspecified Qualified Code(s): R55 - Syncope and collapse (5) Chronic systolic (congestive) heart failure Current Visit: Yes Status: Acute Assessment and plan: Continue home meds. Doing better with increased diuresis. (6) Alcohol dependence Current Visit: Yes Status: Acute Assessment and plan: CIWA ordered. Receiving IV Ativan 0.5mg Q12hrs but fails to reach CIWA scores necessary for PRN ativan. Will change to PO if persists. 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 No anticoagulation due to risks for bleeding. (8) History of seizure disorder Current Visit: No Status: Chronic (9) Tobacco abuse Current Visit: No Status: Chronic - Subjective Interval history: Mr Salmon was admitted for unresponsive episode and acute COPD exacerbation. He complains of stomach and back pain as well as chest pain associated with breathing. Breathing is still difficult with mild amounts of wheezing. Pt claims be very anxious but does not meet CIWA scores to receive PRN ativan. Pt has admits to taking ativan at home more often than prescribed and has ran out of home medication. Pt also has history of alcohol abuse. Pt has been transitioned to Tylenol for pain Q6 and ativan dosage has been decreased to 0.5mg BID. Pt upset with these changes. Awaiting PT/OT eval for transfer to [place] for intermediate care. - Constitutional Vitals: Temp Pulse Resp BP Pulse Ox 98.1 F 80 16 93/55 98 10/06/16 12:03 10/06/16 12:03 10/06/16 12:03 10/06/16 12:03 10/06/16 12:03 General appearance: Present: mild distress, A&O X 3, answers questions appropriately - Head Head exam: Present: atraumatic, normocephalic - Eye Eye exam: Present: PERRL, conjuntiva pink, sclera anicteric - ENT ENT exam: Present: normal exam - Neck Neck exam general surgery: Present: supple, trachea midline. Absent: lymphadenopathy - Respiratory Respiratory exam: Present: decreased breath sounds, wheezes. Absent: accessory muscle use, rales, rhonchi, tachypnea - Cardiovascular Cardiovascular exam: Present: RRR, systolic murmur. Absent: rubs, tachycardia - GI/Abdominal GI/Abdominal exam: Present: normal bowel sounds, soft. Absent: mass - Rectal Rectal exam: Present: deferred - Extremities Exam Extremities exam: Present: warm, radial pulses palpable and symetrical. Absent : calf tenderness, cyanotic, pedal edema - Neurological Exam Neurological exam: Present: alert, oriented X3, no focal deficits. Absent: pronater drift, facial droop, speech deficit - Psychiatric Psychiatric exam: Present: anxious - Skin Skin exam: Present: dry, intact Internal Medicine: Result - Labs CBC & Chem 7: 10/03/16 06:48 10/06/16 07:08 Labs: BMP 10/06/16 07:08 Sodium 137 Potassium 3.4 L Chloride 99 Carbon Dioxide 29 BUN 29 H Creatinine 0.80 Glucose 125 H Calcium 8.3 L Liver Function 10/06/16 Range/Units 07:08 Total Bilirubin 0.2 (0.2-1.2) mg/dL AST 41 H (5-34) Units/L ALT 72 H (0-55) Units/L Alkaline Phosphatase 41 (38-126) Units/L Albumin 2.6 L (3.5-5.0) g/dL - ABG Interpretation ABG results: PT/INR, D-dimer PT 12.2 Seconds (9.4-12.1) H 10/01/16 00:10 - VTE Documentation of Mechanical Device: Graduated compression elastic hosiery Consult Discharge Plan - Plan [facility]errals: [facility] [Primary Care Provider] - <Bubba Holm P - Last Filed: 10/06/16 19:03> Date of Encounter: 10/06/16 - Constitutional Vitals: Temp Pulse Resp BP Pulse Ox 98.3 F 81 16 92/53 98 10/06/16 15:40 10/06/16 15:40 10/06/16 16:19 10/06/16 15:40 10/06/16 16:19 Internal Medicine: Result - Labs CBC & Chem 7: 10/03/16 06:48 10/06/16 07:08 Labs: BMP 10/06/16 07:08 Sodium 137 Potassium 3.4 L Chloride 99 Carbon Dioxide 29 BUN 29 H Creatinine 0.80 Glucose 125 H Calcium 8.3 L Liver Function 10/06/16 Range/Units 07:08 Total Bilirubin 0.2 (0.2-1.2) mg/dL AST 41 H (5-34) Units/L ALT 72 H (0-55) Units/L Alkaline Phosphatase 41 (38-126) Units/L Albumin 2.6 L (3.5-5.0) g/dL - ABG Interpretation ABG results: PT/INR, D-dimer PT 12.2 Seconds (9.4-12.1) H 10/01/16 00:10 - Attending Attestation I examined this patient and my medical decision-making was reviewed with the RD LAB TECHNICIAN/PA/Advanced Practice Nurse/Resident Physician. I agree with the documented findings, disposition and treatment plan as described except to the extent set forth below.
[2016-10-06] MEDS: Benzonatate 100 MG CAPSULE PO PRN ×3 (17:45→22:37)
[2016-10-06] MEDS: Melatonin 3 MG TABLET PO PRN (20:07)
[2016-10-07] MEDS: Ipratropium/Albuterol Neb 3 ML IH SCH ×6 (03:41→23:40)
[2016-10-07] MEDS: Benzonatate 100 MG CAPSULE PO PRN ×3 (04:16→20:32)
[2016-10-07] MEDS: MethylPREDNISolone 40 MG/ML VIAL IVP SCH (05:07)
[2016-10-07] MEDS: Beclomethasone 80mcg MDI IH SCH (07:49)
[2016-10-07] MEDS: Sucralfate 1 GM TABLET PO SCH ×4 (08:32→20:31)
[2016-10-07] MEDS: Furosemide 40 MG/4 ML VIAL IVP SCH (08:32)
[2016-10-07] MEDS: Isosorbide MONOnitrate (24 HR) 30 MG TAB.ER.24H PO SCH (08:32)
[2016-10-07] MEDS: Magnesium Oxide 400 MG TABLET PO SCH ×2 (08:32→20:32)
[2016-10-07] MEDS: Diltiazem CD (24hr) 240 MG CAPSULE PO SCH (08:32)
[2016-10-07] MEDS: *HR* LORazepam 0.5 MG TABLET PO SCH ×2 (08:32→20:32)
[2016-10-07] MEDS: Aspirin Enteric Coated 81 MG Tablet PO SCH (08:33)
[2016-10-07] MEDS: Folic Acid 1 MG TABLET PO SCH (08:33)
[2016-10-07] MEDS: Thiamine (B-1) 100 MG TABLET PO SCH (08:33)
[2016-10-07] MEDS: Multivit/Ca/Min/Fe/FA 1 TAB TABLET PO SCH (08:33)
[2016-10-07] MEDS: Acetaminophen 325 MG TABLET PO PRN ×2 (09:27→20:31)
[2016-10-07] MEDS ORDERED: *HR* LORazepam 1 MG TABLET PO PRN (10:05)
[2016-10-07] MEDS: predniSONE 20 MG TABLET PO SCH (15:34)
--- NOTE | 2016-10-07 16:18 | Internal Med Progress Note ---
<VillalobosLam Quiroga - Last Filed: 10/07/16 16:16> Date of Encounter: 10/07/16 Time of Encounter: 11:05 - Assessment and plan (1) Acute and chronic respiratory failure Current Visit: No Status: Acute Assessment and plan: Continues to slowly improve. Plan for d/c back to [place]. D/C IV Solumedrol, start PO prednisone 40 mg Qualifiers: Respiratory failure complication: hypoxia Qualified Code(s): J96.21 - Acute and chronic respiratory failure with hypoxia (2) Acute exacerbation of chronic obstructive airways disease Current Visit: Yes Status: Acute Assessment and plan: Steroids decreased 2 days ago. Seems to be slowly improving. Will continue current plan. (3) Chest pain Current Visit: Yes Status: Acute Assessment and plan: Doing better today, pain associated with breathing. Continue Tylenol for pain. Qualifiers: Chest pain type: chest pain on breathing Qualified Code(s): R07.1 - Chest pain on breathing (4) Syncope Current Visit: Yes Status: Acute Assessment and plan: Has not recurred. Appears to have been related to lack of benzodiazepine +/- alcohol. Also has seizure disorder which he has not been taking meds. Continue supportive care. No changes for now. Qualifiers: Syncope type: unspecified Qualified Code(s): R55 - Syncope and collapse (5) Chronic systolic (congestive) heart failure Current Visit: Yes Status: Acute Assessment and plan: Continue home meds. Doing better with increased diuresis. Lasix to PO (6) Alcohol dependence Current Visit: Yes Status: Acute Assessment and plan: CIWA cancelled. Pt. had three scores of less than 10. . 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 No anticoagulation due to risks for bleeding. (8) History of seizure disorder Current Visit: No Status: Chronic (9) Tobacco abuse Current Visit: No Status: Chronic - Subjective Interval history: Patient seen and examined. Breathing is still difficult with mild amounts of wheezing. States he is doing better than yesterday. Waiting for PT/OT consult for transfer to [place]. Denies cp, abd pain, n/v/d. - Constitutional Vitals: Temp Pulse Resp BP Pulse Ox 98.2 F 92 16 109/68 98 10/07/16 15:53 10/07/16 15:53 10/07/16 15:53 10/07/16 15:53 10/07/16 15:53 General appearance: Present: mild distress, A&O X 3, answers questions appropriately - Head Head exam: Present: atraumatic, normocephalic - Eye Eye exam: Present: PERRL, conjuntiva pink, sclera anicteric Pupils: Present: PERRL - Neck Neck exam general surgery: Present: supple, trachea midline. Absent: lymphadenopathy - Respiratory Respiratory exam: Present: decreased breath sounds, prolonged expiratory phase, wheezes. Absent: respiratory distress, rhonchi, tachypnea - Cardiovascular Cardiovascular exam: Present: RRR, +S1, +S2. Absent: diastolic murmur, gallop, rubs, systolic murmur - GI/Abdominal GI/Abdominal exam: Present: normal bowel sounds, soft, no peritoneal signs. Absent: distended, tenderness - Extremities Exam Extremities exam: Present: warm, radial pulses palpable and symetrical. Absent : calf tenderness, cyanotic, pedal edema - Neurological Exam Neurological exam: Present: CN II-XII intact, oriented X3, no focal deficits. Absent: pronater drift, facial droop, speech deficit - Skin Skin exam: Present: dry, intact Internal Medicine: Result - Labs CBC & Chem 7: 10/03/16 06:48 10/06/16 07:08 - ABG Interpretation ABG results: PT/INR, D-dimer PT 12.2 Seconds (9.4-12.1) H 10/01/16 00:10 - VTE Documentation of Mechanical Device: Graduated compression elastic hosiery Consult Discharge Plan - Plan [facility]errals: [facility] [Primary Care Provider] - <Bubba Holm P - Last Filed: 10/07/16 18:49> Date of Encounter: 10/07/16 - Constitutional Vitals: Temp Pulse Resp BP Pulse Ox 98.2 F 92 16 109/68 98 10/07/16 15:53 10/07/16 15:53 10/07/16 15:53 10/07/16 15:53 10/07/16 15:53 Internal Medicine: Result - Labs CBC & Chem 7: 10/03/16 06:48 10/06/16 07:08 - ABG Interpretation ABG results: PT/INR, D-dimer PT 12.2 Seconds (9.4-12.1) H 10/01/16 00:10 - Attending Attestation I examined this patient and my medical decision-making was reviewed with the NURSING SERVICES MANAGER/PA/Advanced Practice Nurse/Resident Physician. I agree with the documented findings, disposition and treatment plan as described except to the extent set forth below.
[2016-10-07] MEDS: Melatonin 3 MG TABLET PO PRN (20:31)
[2016-10-07] MEDS: Furosemide 40 MG TABLET PO SCH (20:32)
[2016-10-08] MEDS: Benzonatate 100 MG CAPSULE PO PRN ×2 (01:43→22:17)
[2016-10-08] MEDS: Menthol 9.1 MG LOZENGE PO PRN ×2 (04:43→22:17)
[2016-10-08] MEDS: Ipratropium/Albuterol Neb 3 ML IH SCH ×6 (04:51→23:50)
[2016-10-08] MEDS: Beclomethasone 80mcg MDI IH SCH (07:37)
[2016-10-08] MEDS: *HR* LORazepam 0.5 MG TABLET PO SCH ×2 (09:43→22:18)
[2016-10-08] MEDS: predniSONE 20 MG TABLET PO SCH ×2 (09:43→17:23)
[2016-10-08] MEDS: Sucralfate 1 GM TABLET PO SCH ×4 (09:43→22:17)
[2016-10-08] MEDS: Diltiazem CD (24hr) 240 MG CAPSULE PO SCH (09:43)
[2016-10-08] MEDS: Aspirin Enteric Coated 81 MG Tablet PO SCH (09:43)
[2016-10-08] MEDS: Folic Acid 1 MG TABLET PO SCH (09:44)
[2016-10-08] MEDS: Furosemide 40 MG TABLET PO SCH ×2 (09:44→22:17)
[2016-10-08] MEDS: Magnesium Oxide 400 MG TABLET PO SCH ×2 (09:44→22:18)
[2016-10-08] MEDS: Isosorbide MONOnitrate (24 HR) 30 MG TAB.ER.24H PO SCH (09:44)
[2016-10-08] MEDS: Thiamine (B-1) 100 MG TABLET PO SCH (09:45)
[2016-10-08] MEDS: Multivit/Ca/Min/Fe/FA 1 TAB TABLET PO SCH (09:45)
[2016-10-08] MEDS: GuaiFENesin Liq 200 MG/10 ML UDC PO PRN ×2 (11:19→17:23)
--- NOTE | 2016-10-08 14:12 | Electrocardiograph Report ---
[facility] Test Date: 2016-10-07 Pat Name: MALIHA SAHA Department: 111 Room: [id number] Gender: M Commissary Representative: SHARON : 1945 Requested By: Harris Ma Order Number: [id number] Reading MD: Bogdan Cherry Measurements Intervals [place] Rate: 88 P: 26 FL: 151 QRS: 38 QRSD: 93 T: 37 QT: 367 QTc: 413 Interpretive Statements SINUS RHYTHM WITH OCCASIONAL VENTRICULAR PREMATURE COMPLEXES WITH OCCASIONAL SUPRAVENTRICULAR PREMATURE COMPLEXES Electronically Signed On 10-08-16 14:12:29 EST by Bogdan Cherry
--- NOTE | 2016-10-08 15:01 | Internal Med Progress Note ---
<Lam Villalobos - Last Filed: 10/08/16 15:45> Date of Encounter: 10/08/16 Time of Encounter: 11:00 - Assessment and plan (1) Acute and chronic respiratory failure Current Visit: No Status: Acute Assessment and plan: Continues to slowly improve. [facility], social media intern on board to help with placement. Continue PO prednisone 40 mg BID Pt asked for cough medicine and was given Robitussin liquid 200mg Q6hr PRN. Qualifiers: Respiratory failure complication: hypoxia Qualified Code(s): J96.21 - Acute and chronic respiratory failure with hypoxia (2) Acute exacerbation of chronic obstructive airways disease Current Visit: Yes Status: Acute Assessment and plan: Steroids decreased 3 days ago. Now receiving 40mg PO BIDWM. Seems to be slowly improving. Will continue current plan. (3) Chest pain Current Visit: Yes Status: Acute Assessment and plan: Doing better today, pain associated with breathing. Continue Tylenol for pain. Qualifiers: Chest pain type: chest pain on breathing Qualified Code(s): R07.1 - Chest pain on breathing (4) Syncope Current Visit: Yes Status: Acute Assessment and plan: Has not recurred. Appears to have been related to lack of benzodiazepine +/- alcohol. Also has seizure disorder which he has not been taking meds. Continue supportive care. No changes for now. Qualifiers: Syncope type: unspecified Qualified Code(s): R55 - Syncope and collapse (5) Chronic systolic (congestive) heart failure Current Visit: Yes Status: Acute Assessment and plan: Continue home meds. Doing better with increased diuresis. Lasix to PO (6) Alcohol dependence Current Visit: Yes Status: Acute Assessment and plan: CIWA cancelled. Pt. had three scores of less than 10. . 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 No anticoagulation due to risks for bleeding. (8) History of seizure disorder Current Visit: No Status: Chronic (9) Tobacco abuse Current Visit: No Status: Chronic - Subjective Interval history: Patient seen and examined. Breathing is still difficult with mild amounts of wheezing. States he is doing better than yesterday. [facility], social media intern on board and helping to find placement. Denies cp, abd pain, n/v/d. - Constitutional Vitals: Temp Pulse Resp BP Pulse Ox 97.5 F L 89 20 110/67 98 10/08/16 11:19 10/08/16 11:19 10/08/16 11:27 10/08/16 11:19 10/08/16 11:27 General appearance: Present: mild distress, A&O X 3, answers questions appropriately - Head Head exam: Present: atraumatic, normocephalic - Eye Eye exam: Present: PERRL, conjuntiva pink, sclera anicteric - Neck Neck exam general surgery: Present: supple, trachea midline. Absent: lymphadenopathy - Respiratory Respiratory exam: Present: decreased breath sounds, prolonged expiratory phase, wheezes. Absent: respiratory distress, rhonchi, tachypnea - Cardiovascular Cardiovascular exam: Present: RRR, +S1, +S2. Absent: diastolic murmur, gallop, rubs, systolic murmur - GI/Abdominal GI/Abdominal exam: Present: normal bowel sounds, soft, no peritoneal signs. Absent: distended, tenderness - Rectal Rectal exam: Present: deferred - Extremities Exam Extremities exam: Present: warm, radial pulses palpable and symetrical. Absent : calf tenderness, cyanotic, pedal edema - Neurological Exam Neurological exam: Present: CN II-XII intact, oriented X3, no focal deficits. Absent: pronater drift, facial droop, speech deficit - Skin Skin exam: Present: dry, intact Internal Medicine: Result - Labs CBC & Chem 7: 10/03/16 06:48 10/06/16 07:08 - ABG Interpretation ABG results: PT/INR, D-dimer PT 12.2 Seconds (9.4-12.1) H 10/01/16 00:10 - VTE Documentation of Mechanical Device: Graduated compression elastic hosiery Consult Discharge Plan - Plan [facility]errals: [facility] [Primary Care Provider[facility] - <Bubba Holm P - Last Filed: 10/08/16 18:14> Date of Encounter: 10/08/16 - Constitutional Vitals: Temp Pulse Resp BP Pulse Ox 98.4 F 85 20 100/66 93 L 10/08/16 15:59 10/08/16 15:59 10/08/16 16:07 10/08/16 15:59 10/08/16 16:07 Internal Medicine: Result - Labs CBC & Chem 7: 10/03/16 06:48 10/06/16 07:08 - ABG Interpretation ABG results: PT/INR, D-dimer PT 12.2 Seconds (9.4-12.1) H 10/01/16 00:10 - Attending Attestation I examined this patient and my medical decision-making was reviewed with the FORENSIC MEDICAL EXAMINER/PA/Advanced Practice Nurse/Resident Physician. I agree with the documented findings, disposition and treatment plan as described except to the extent set forth below.
[2016-10-08] MEDS: Melatonin 3 MG TABLET PO PRN (22:17)
[2016-10-08] MEDS: Acetaminophen 325 MG TABLET PO PRN (22:17)
[2016-10-09] MEDS: Ipratropium/Albuterol Neb 3 ML IH SCH ×5 (03:42→19:49)
[2016-10-09] MEDS: Beclomethasone 80mcg MDI IH SCH (08:04)
[2016-10-09] MEDS: predniSONE 20 MG TABLET PO SCH ×2 (11:22→17:40)
[2016-10-09] MEDS: Isosorbide MONOnitrate (24 HR) 30 MG TAB.ER.24H PO SCH (11:22)
[2016-10-09] MEDS: Aspirin Enteric Coated 81 MG Tablet PO SCH (11:22)
[2016-10-09] MEDS: Magnesium Oxide 400 MG TABLET PO SCH ×2 (11:22→21:05)
[2016-10-09] MEDS: Folic Acid 1 MG TABLET PO SCH (11:22)
[2016-10-09] MEDS: Multivit/Ca/Min/Fe/FA 1 TAB TABLET PO SCH (11:22)
[2016-10-09] MEDS: Furosemide 40 MG TABLET PO SCH ×2 (11:23→21:04)
[2016-10-09] MEDS: Diltiazem CD (24hr) 240 MG CAPSULE PO SCH (11:23)
[2016-10-09] MEDS: *HR* LORazepam 0.5 MG TABLET PO SCH ×2 (11:24→21:05)
[2016-10-09] MEDS: GuaiFENesin Liq 200 MG/10 ML UDC PO PRN ×3 (11:31→17:44)
[2016-10-09] MEDS: Sucralfate 1 GM TABLET PO SCH ×4 (11:34→21:05)
[2016-10-09] MEDS: Thiamine (B-1) 100 MG TABLET PO SCH (11:34)
--- NOTE | 2016-10-09 11:37 | Internal Med Progress Note ---
<VillalobosLam Quiroga - Last Filed: 10/09/16 11:34> Date of Encounter: 10/09/16 Time of Encounter: 11:35 - Assessment and plan (1) Acute and chronic respiratory failure Current Visit: No Status: Acute Assessment and plan: Continues to slowly improve. [facility], case management social worker on board to help with placement. Continue PO prednisone 40 mg BID Qualifiers: Respiratory failure complication: hypoxia Qualified Code(s): J96.21 - Acute and chronic respiratory failure with hypoxia (2) Acute exacerbation of chronic obstructive airways disease Current Visit: Yes Status: Acute Assessment and plan: Steroids decreased 3 days ago. Now receiving 40mg PO BIDWM. Seems to be slowly improving. Will continue current plan. (3) Chest pain Current Visit: Yes Status: Acute Assessment and plan: Doing better today, pain associated with breathing. Continue Tylenol for pain. Qualifiers: Chest pain type: chest pain on breathing Qualified Code(s): R07.1 - Chest pain on breathing (4) Syncope Current Visit: Yes Status: Acute Assessment and plan: Has not recurred. Appears to have been related to lack of benzodiazepine +/- alcohol. Also has seizure disorder which he has not been taking meds. Continue supportive care. No changes for now. Qualifiers: Syncope type: unspecified Qualified Code(s): R55 - Syncope and collapse (5) Chronic systolic (congestive) heart failure Current Visit: Yes Status: Acute Assessment and plan: Continue home meds. Doing better with increased diuresis. Lasix to PO (6) Alcohol dependence Current Visit: Yes Status: Acute Assessment and plan: CIWA cancelled. Pt. had three scores of less than 10. . 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 No anticoagulation due to risks for bleeding. (8) History of seizure disorder Current Visit: No Status: Chronic (9) Tobacco abuse Current Visit: No Status: Chronic - Subjective Interval history: Patient seen and examined. Breathing is still difficult with mild amounts of wheezing. States he is doing better than yesterday. [facility], aids social worker on board and helping to find placement. Denies cp, abd pain, n/v/d. - Constitutional Vitals: Temp Pulse Resp BP Pulse Ox 97.1 F L 73 18 124/75 97 10/09/16 08:00 10/09/16 08:00 10/09/16 08:07 10/09/16 08:00 10/09/16 08:07 General appearance: Present: A&O X 3, answers questions appropriately - Head Head exam: Present: atraumatic, normocephalic - Eye Eye exam: Present: PERRL, conjuntiva pink, sclera anicteric Pupils: Present: PERRL - Neck Neck exam general surgery: Present: supple, trachea midline. Absent: lymphadenopathy - Respiratory Respiratory exam: Present: CTAB, rhonchi, wheezes. Absent: accessory muscle use , rales - Cardiovascular Cardiovascular exam: Present: RRR, +S1, +S2 - GI/Abdominal GI/Abdominal exam: Present: normal bowel sounds, soft, no peritoneal signs. Absent: distended, tenderness - Extremities Exam Extremities exam: Present: pedal edema (trace), warm, radial pulses palpable and symetrical. Absent: calf tenderness, cyanotic - Neurological Exam Neurological exam: Present: CN II-XII intact, oriented X3, no focal deficits. Absent: facial droop, speech deficit - Skin Skin exam: Present: dry, intact Internal Medicine: Result - Labs CBC & Chem 7: 10/03/16 06:48 10/06/16 07:08 - ABG Interpretation ABG results: PT/INR, D-dimer PT 12.2 Seconds (9.4-12.1) H 10/01/16 00:10 - VTE Documentation of Mechanical Device: Graduated compression elastic hosiery Consult Discharge Plan - Plan Instructions: Heart Failure (DC), Atrial Fibrillation (DC), Urinary Tract Infection in Men (DC), Benzodiazepine Abuse (DC), Benzodiazepine Abuse (GEN), Chronic Obstructive Pulmonary Disease (DC), Abuse of Alcohol (DC), Abuse of Alcohol (GEN), Cigarette Smoking and Your Health, Mutual Fund Analyst (GEN) [facility]errals: [facility] [Primary Care Provider] - <Bubba Holm P - Last Filed: 10/09/16 18:36> Date of Encounter: 10/09/16 - Constitutional Vitals: Temp Pulse Resp BP Pulse Ox 98.3 F 81 16 91/61 95 10/09/16 15:33 10/09/16 15:33 10/09/16 15:33 10/09/16 15:33 10/09/16 15:33 Internal Medicine: Result - Labs CBC & Chem 7: 10/03/16 06:48 10/06/16 07:08 - ABG Interpretation ABG results: PT/INR, D-dimer PT 12.2 Seconds (9.4-12.1) H 10/01/16 00:10 - Attending Attestation I examined this patient and my medical decision-making was reviewed with the COLOR DEVELOPER/PA/Advanced Practice Nurse/Resident Physician. I agree with the documented findings, disposition and treatment plan as described except to the extent set forth below.
[2016-10-09] MEDS: Menthol 9.1 MG LOZENGE PO PRN ×3 (13:47→21:05)
[2016-10-09] MEDS: Benzonatate 100 MG CAPSULE PO PRN (13:47)
[2016-10-09] MEDS: Melatonin 3 MG TABLET PO PRN (21:04)
[2016-10-09] MEDS: Acetaminophen 325 MG TABLET PO PRN (21:05)
[2016-10-10] MEDS: Ipratropium/Albuterol Neb 3 ML IH SCH ×7 (00:53→23:55)
[2016-10-10 07:08] LABS: BUN/Creatinine Ratio 41 (6-26); Blood Urea Nitrogen 32 mg/dL (8-26); Calcium 8.7 mg/dL (8.6-10.8); Carbon Dioxide 28 mEq/L (19-29); Chloride 102 mEq/L (98-109); Glucose 118 mg/dL (70-99); Osmolality,Calculated 290 (280-300); Potassium 4.3 mEq/L (3.5-4.5); Sodium 136 mEq/L (136-145); eGFR For African Americans > 60 (> 60); eGFR For Non-African Americans > 60 (> 60)
[2016-10-10 07:22] LABS: Basophils % 0.3 %; Immature Granulocytes % 2.6 % (0-4); Lymphocytes # 1.1 K/mcL (0.6-4.6); Lymphocytes % 7.8 %; Mean Corpuscular HGB Conc 33.3 g/dL (31.6-35.5); Mean Corpuscular Hemoglobin 33.2 pg (28.0-33.3); Mean Corpuscular Volume 99.7 fL (83.0-100.0); Mean Platelet Volume 10.5 fL (9.4-12.4); Monocytes # 0.6 K/mcL (0.0-1.3); Monocytes % 4.1 %; Neutrophils # 12.2 K/mcL (1.6-8.9); Platelet Count 176 K/mcL (140-400); Red Blood Count 3.61 M/mcL (4.19-5.50); Segmented Neutrophils % 85.2 %
[2016-10-10] MEDS: Beclomethasone 80mcg MDI IH SCH (07:54)
[2016-10-10] MEDS: Aspirin Enteric Coated 81 MG Tablet PO SCH (09:09)
[2016-10-10] MEDS: Isosorbide MONOnitrate (24 HR) 30 MG TAB.ER.24H PO SCH (09:09)
[2016-10-10] MEDS: Sucralfate 1 GM TABLET PO SCH ×4 (09:09→19:40)
[2016-10-10] MEDS: Magnesium Oxide 400 MG TABLET PO SCH ×2 (09:09→19:39)
[2016-10-10] MEDS: Folic Acid 1 MG TABLET PO SCH (09:09)
[2016-10-10] MEDS: predniSONE 20 MG TABLET PO SCH ×2 (09:09→16:47)
[2016-10-10] MEDS: Multivit/Ca/Min/Fe/FA 1 TAB TABLET PO SCH (09:09)
[2016-10-10] MEDS: Diltiazem CD (24hr) 240 MG CAPSULE PO SCH (09:10)
[2016-10-10] MEDS: *HR* LORazepam 0.5 MG TABLET PO SCH ×2 (09:10→19:39)
[2016-10-10] MEDS: Furosemide 40 MG TABLET PO SCH ×2 (09:10→19:40)
[2016-10-10] MEDS: Thiamine (B-1) 100 MG TABLET PO SCH (09:13)
[2016-10-10] MEDS: GuaiFENesin Liq 200 MG/10 ML UDC PO PRN ×3 (09:15→15:30)
--- NOTE | 2016-10-10 18:05 | Internal Med Progress Note ---
Date of Encounter: 10/10/16 Time of Encounter: 18:04 - Assessment and plan (1) Acute and chronic respiratory failure Current Visit: No Status: Acute Assessment and plan: Continues to slowly improve. [facility], social media manager on board to help with placement. Continue PO prednisone 40 mg BID Qualifiers: Respiratory failure complication: hypoxia Qualified Code(s): J96.21 - Acute and chronic respiratory failure with hypoxia (2) Acute exacerbation of chronic obstructive airways disease Current Visit: Yes Status: Acute Assessment and plan: Steroids decreased 3 days ago. Now receiving 40mg PO BIDWM. Seems to be slowly improving. Will continue current plan. (3) Chest pain Current Visit: Yes Status: Acute Assessment and plan: Doing better today, pain associated with breathing. Continue Tylenol for pain. Qualifiers: Chest pain type: chest pain on breathing Qualified Code(s): R07.1 - Chest pain on breathing (4) Syncope Current Visit: Yes Status: Acute Assessment and plan: Has not recurred. Appears to have been related to lack of benzodiazepine +/- alcohol. Also has seizure disorder which he has not been taking meds. Continue supportive care. No changes for now. Qualifiers: Syncope type: unspecified Qualified Code(s): R55 - Syncope and collapse - Subjective Interval history: Patient seen and examined. Chart reviewed. Patient still is off and on cough and shortness of breath. - Constitutional Vitals: Temp Pulse Resp BP Pulse Ox 98.4 F 80 16 97/63 96 10/10/16 15:32 10/10/16 15:32 10/10/16 15:39 10/10/16 15:32 10/10/16 15:39 General appearance: Present: A&O X 3, answers questions appropriately - Head Head exam: Present: atraumatic, normocephalic - Eye Eye exam: Present: PERRL, conjuntiva pink, sclera anicteric Pupils: Present: PERRL - Neck Neck exam general surgery: Present: supple, trachea midline. Absent: lymphadenopathy - Respiratory Respiratory exam: Present: CTAB. Absent: accessory muscle use, rales, rhonchi, wheezes - Cardiovascular Cardiovascular exam: Present: RRR, +S1, +S2. Absent: diastolic murmur, gallop, rubs, systolic murmur - GI/Abdominal GI/Abdominal exam: Present: normal bowel sounds, soft, no peritoneal signs. Absent: distended, tenderness - Extremities Exam Extremities exam: Present: warm, radial pulses palpable and symetrical. Absent : calf tenderness, cyanotic, pedal edema - Neurological Exam Neurological exam: Present: CN II-XII intact, oriented X3, no focal deficits. Absent: pronater drift, facial droop, speech deficit - Skin Skin exam: Present: dry, intact Internal Medicine: Result - Labs CBC & Chem 7: 10/10/16 06:44 10/10/16 06:44 Labs: Short CBC 10/10/16 Range/Units 06:44 WBC 14.3 H D (4.3-11.1) K/mcL Hgb 12.0 L (12.9-16.9) g/dL Hct 36.0 L (37.5-50.1) % Plt Count 176 (140-400) K/mcL Neutrophils # 12.2 H (1.6-8.9) K/mcL BMP 10/10/16 06:44 Sodium 136 Potassium 4.3 Chloride 102 Carbon Dioxide 28 BUN 32 H Creatinine 0.78 Glucose 118 H Calcium 8.7 - ABG Interpretation ABG results: PT/INR, D-dimer PT 12.2 Seconds (9.4-12.1) H 10/01/16 00:10 - VTE Documentation of Mechanical Device: Graduated compression elastic hosiery Consult Discharge Plan - Plan Instructions: Heart Failure (DC), Atrial Fibrillation (DC), Urinary Tract Infection in Men (DC), Benzodiazepine Abuse (DC), Benzodiazepine Abuse (GEN), Chronic Obstructive Pulmonary Disease (DC), Abuse of Alcohol (DC), Abuse of Alcohol (GEN), Cigarette Smoking and Your Health, 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
[2016-10-10] MEDS: Acetaminophen 325 MG TABLET PO PRN (22:41)
[2016-10-10] MEDS: Mag Hydrox/Al Hydrox/Simeth 30 ML UDC PO PRN (22:41)
[2016-10-11] MEDS: Ipratropium/Albuterol Neb 3 ML IH SCH ×6 (04:12→23:08)
[2016-10-11] MEDS: Beclomethasone 80mcg MDI IH SCH (07:53)
[2016-10-11] MEDS: predniSONE 20 MG TABLET PO SCH ×2 (10:03→16:14)
[2016-10-11] MEDS: Diltiazem CD (24hr) 240 MG CAPSULE PO SCH (10:04)
[2016-10-11] MEDS: *HR* LORazepam 0.5 MG TABLET PO SCH ×2 (10:04→20:31)
[2016-10-11] MEDS: Folic Acid 1 MG TABLET PO SCH (10:04)
[2016-10-11] MEDS: Sucralfate 1 GM TABLET PO SCH ×4 (10:04→20:31)
[2016-10-11] MEDS: Aspirin Enteric Coated 81 MG Tablet PO SCH (10:05)
[2016-10-11] MEDS: Isosorbide MONOnitrate (24 HR) 30 MG TAB.ER.24H PO SCH (10:05)
[2016-10-11] MEDS: Furosemide 40 MG TABLET PO SCH ×2 (10:05→20:31)
[2016-10-11] MEDS: Magnesium Oxide 400 MG TABLET PO SCH ×2 (10:05→20:31)
[2016-10-11] MEDS: Thiamine (B-1) 100 MG TABLET PO SCH (10:05)
[2016-10-11] MEDS: Mag Hydrox/Al Hydrox/Simeth 30 ML UDC PO PRN ×2 (10:06→20:31)
[2016-10-11] MEDS: Multivit/Ca/Min/Fe/FA 1 TAB TABLET PO SCH (10:07)
--- NOTE | 2016-10-11 15:26 | Internal Med Progress Note ---
Date of Encounter: 10/11/16 Time of Encounter: 15:24 - Assessment and plan (1) Acute and chronic respiratory failure Current Visit: No Status: Acute Assessment and plan: Continues to slowly improve. Plan for d/c back to [place] was rejected, long term care social worker on board to help with placement. Continue PO prednisone 40 mg BID 10/11/2016 Patient is improved significantly over the last 1 week. Today he denies any shortness of breath or chest pain. We will continue present treatment for now. Patient can go back to [place] tomorrow. Qualifiers: Respiratory failure complication: hypoxia Qualified Code(s): J96.21 - Acute and chronic respiratory failure with hypoxia (2) Acute exacerbation of chronic obstructive airways disease Current Visit: Yes Status: Acute Assessment and plan: Steroids decreased 3 days ago. Now receiving 40mg PO BIDWM. Seems to be slowly improving. Will continue current plan. (3) Chest pain Current Visit: Yes Status: Acute Assessment and plan: Doing better today, pain associated with breathing. Continue Tylenol for pain. Qualifiers: Chest pain type: chest pain on breathing Qualified Code(s): R07.1 - Chest pain on breathing (4) Syncope Current Visit: Yes Status: Acute Assessment and plan: Has not recurred. Appears to have been related to lack of benzodiazepine +/- alcohol. Also has seizure disorder which he has not been taking meds. Continue supportive care. No changes for now. Qualifiers: Syncope type: unspecified Qualified Code(s): R55 - Syncope and collapse - Subjective Interval history: Patient seen and examined. Chart reviewed. Patient still is off and on cough and shortness of breath. 10/11/2016 Patient seen and examined. Chart reviewed. Discussion and is comfortable and denies any shortness of breath or chest pain. - Constitutional Vitals: Temp Pulse Resp BP Pulse Ox 98.2 F 90 16 106/54 98 10/11/16 11:44 10/11/16 11:44 10/11/16 11:44 10/11/16 11:44 10/11/16 11:44 General appearance: Present: A&O X 3, answers questions appropriately - Head Head exam: Present: atraumatic, normocephalic - Eye Eye exam: Present: PERRL, conjuntiva pink, sclera anicteric Pupils: Present: PERRL - Neck Neck exam general surgery: Present: supple, trachea midline. Absent: lymphadenopathy - Respiratory Respiratory exam: Present: CTAB. Absent: accessory muscle use, rales, rhonchi, wheezes - Cardiovascular Cardiovascular exam: Present: RRR, +S1, +S2. Absent: diastolic murmur, gallop, rubs, systolic murmur - GI/Abdominal GI/Abdominal exam: Present: normal bowel sounds, soft, no peritoneal signs. Absent: distended, tenderness - Extremities Exam Extremities exam: Present: warm, radial pulses palpable and symetrical. Absent : calf tenderness, cyanotic, pedal edema - Neurological Exam Neurological exam: Present: CN II-XII intact, oriented X3, no focal deficits. Absent: pronater drift, facial droop, speech deficit - Skin Skin exam: Present: dry, intact Internal Medicine: Result - Labs CBC & Chem 7: 10/10/16 06:44 10/10/16 06:44 - ABG Interpretation ABG results: PT/INR, D-dimer PT 12.2 Seconds (9.4-12.1) H 10/01/16 00:10 - VTE Documentation of Mechanical Device: Graduated compression elastic hosiery Consult Discharge Plan - Plan Instructions: Heart Failure (DC), Atrial Fibrillation (DC), Urinary Tract Infection in Men (DC), Benzodiazepine Abuse (DC), Benzodiazepine Abuse (GEN), Chronic Obstructive Pulmonary Disease (DC), Abuse of Alcohol (DC), Abuse of Alcohol (GEN), Cigarette Smoking and Your Health, 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
[2016-10-11] MEDS: GuaiFENesin Liq 200 MG/10 ML UDC PO PRN ×2 (16:14→22:56)
[2016-10-12] MEDS: Ipratropium/Albuterol Neb 3 ML IH SCH ×6 (04:15→23:12)
[2016-10-12] MEDS: GuaiFENesin Liq 200 MG/10 ML UDC PO PRN ×2 (04:55→20:33)
[2016-10-12 05:12] LABS: Basophils # 0.1 K/mcL (0.0-0.2); Basophils % 0.6 %; Eosinophils % 0.1 %; Hematocrit 39.7 % (37.5-50.1); Immature Granulocytes % 2.9 % (0-4); Immature Platelets 5.3 % (1.1-6.1); Lymphocytes # 1.6 K/mcL (0.6-4.6); Mean Corpuscular HGB Conc 32.7 g/dL (31.6-35.5); Mean Corpuscular Hemoglobin 33.8 pg (28.0-33.3); Mean Corpuscular Volume 103.1 fL (83.0-100.0); Mean Platelet Volume 11.1 fL (9.4-12.4); Monocytes # 0.7 K/mcL (0.0-1.3); Monocytes % 4.1 %; Neutrophils # 13.2 K/mcL (1.6-8.9); Platelet Count 196 K/mcL (140-400); Red Blood Count 3.85 M/mcL (4.19-5.50); Red Cell Distribution Width 15.7 % (11.5-14.5); Segmented Neutrophils % 82.3 %
[2016-10-12 05:30] LABS: Alanine Aminotransferase 57 Units/L (0-55); Albumin 2.3 g/dL (3.5-5.0); Albumin/Globulin Ratio 0.7 (1.1-2.2); Alkaline Phosphatase 46 Units/L (38-126); Aspartate Amino Transferase 22 Units/L (5-34); BUN/Creatinine Ratio 41 (6-26); Bilirubin,Total 0.3 mg/dL (0.2-1.2); Blood Urea Nitrogen 35 mg/dL (8-26); Carbon Dioxide 23 mEq/L (19-29); Chloride 102 mEq/L (98-109); Globulin 3.5 g/dL (2.4-3.5); Glucose 102 mg/dL (70-99); Osmolality,Calculated 290 (280-300); Potassium 4.2 mEq/L (3.5-4.5); Sodium 136 mEq/L (136-145); Total Protein 5.8 g/dL (6.0-8.3); eGFR For African Americans > 60 (> 60); eGFR For Non-African Americans > 60 (> 60)
[2016-10-12 05:44] LABS: Platelet Estimate Normal (Normal)
[2016-10-12 05:45] LABS: Polychromasia 1+ (Not Present)
[2016-10-12] MEDS: Magnesium Oxide 400 MG TABLET PO SCH ×2 (08:33→20:33)
[2016-10-12] MEDS: Furosemide 40 MG TABLET PO SCH ×2 (08:33→20:33)
[2016-10-12] MEDS: Sucralfate 1 GM TABLET PO SCH ×4 (08:33→20:33)
[2016-10-12] MEDS: Multivit/Ca/Min/Fe/FA 1 TAB TABLET PO SCH (08:33)
[2016-10-12] MEDS: *HR* LORazepam 0.5 MG TABLET PO SCH ×2 (08:33→20:34)
[2016-10-12] MEDS: Aspirin Enteric Coated 81 MG Tablet PO SCH (08:33)
[2016-10-12] MEDS: predniSONE 20 MG TABLET PO SCH ×2 (08:33→16:24)
[2016-10-12] MEDS: Isosorbide MONOnitrate (24 HR) 30 MG TAB.ER.24H PO SCH (08:33)
[2016-10-12] MEDS: Folic Acid 1 MG TABLET PO SCH (08:33)
[2016-10-12] MEDS: Thiamine (B-1) 100 MG TABLET PO SCH (08:33)
[2016-10-12] MEDS: Diltiazem CD (24hr) 240 MG CAPSULE PO SCH (08:36)
[2016-10-12] MEDS: Mag Hydrox/Al Hydrox/Simeth 30 ML UDC PO PRN ×2 (08:40→18:01)
[2016-10-12] MEDS: Beclomethasone 80mcg MDI IH SCH (08:46)
--- NOTE | 2016-10-12 10:02 | Discharge Summary ---
<David Skinner - Last Filed: 10/12/16 14:59> Date of Encounter: 10/12/16 Time of Encounter: 09:10 - Discharge Diagnosis (1) Acute and chronic respiratory failure Priority: Primary Status: Acute Qualifiers: Respiratory failure complication: hypoxia Qualified Code(s): J96.21 - Acute and chronic respiratory failure with hypoxia (2) Acute exacerbation of chronic obstructive airways disease Priority: Primary Status: Acute (3) Chest pain Priority: Primary Status: Acute Qualifiers: Chest pain type: chest pain on breathing Qualified Code(s): R07.1 - Chest pain on breathing (4) Syncope Priority: Primary Status: Acute Qualifiers: Syncope type: unspecified Qualified Code(s): R55 - Syncope and collapse - Discharge Medications Prescriptions: PredniSONE 40 mg PO BIDWM #38 tablet Home Medications: Albuterol Sulfate [Albuterol Inhaler] 2 puff IH QID PRN 05/07/15 [History] Folic Acid 1 mg PO DAILY 05/07/15 [History] Isosorbide MONOnitrate [Isosorbide Mononitrate ER] 30 mg PO DAILY 05/07/15 [ History] Omeprazole [PriLOSEC] 20 mg PO BID 05/07/15 [History] Thiamine HCl [Vitamin B-1] 100 mg PO DAILY 05/07/15 [History] Tiotropium [Spiriva] 18 mcg IH DAILY 05/07/15 [History] Clopidogrel [Plavix] 75 mg PO DAILY #14 tablet 06/25/15 [Rx] Magnesium Oxide [Mag-Ox] 400 mg PO BID #0 tablet 09/02/15 [Rx] Albuterol Neb [Proventil Neb] 2.5 mg IH Q6H PRN 04/24/16 [History] Sucralfate [Carafate] 1 gm PO QID 04/24/16 [History] Potassium Chloride 20 meq PO DAILY 30 Days 04/28/16 [Rx] Mometasone Furoate [Asmanex] 220 mcg IH DAILY 06/30/16 [History] Phenytoin ER [Dilantin ER] 200 mg PO QAM 06/30/16 [History] Aspirin [Lo-Dose Aspirin EC] 81 mg PO DAILY 09/30/16 [History] Buspirone HCl [Buspar] 7.5 mg PO BID PRN 09/30/16 [History] Cyanocobalamin (Vitamin B-12) [Vitamin B-12] 100 mcg PO HS 09/30/16 [History] Diltiazem HCl [Diltiazem 24Hr Cd] 240 mg PO DAILY 09/30/16 [History] Ferrous Gluconate 324 mg PO DAILY 09/30/16 [History] Furosemide [Lasix] 20 mg PO QPM 09/30/16 [History] Furosemide [Lasix] 40 mg PO QAM 09/30/16 [History] Melatonin 9 mg PO HS PRN 09/30/16 [History] Multivitamin with Minerals [Myvitalife] 1 each PO DAILY 09/30/16 [History] Olodaterol HCl [Striverdi Respimat] 2 puff IH DAILY 09/30/16 [History] Prazosin [Minipress] 3 mg PO HS 09/30/16 [History] Sertraline [Zoloft] 50 mg PO QAM 09/30/16 [History] Calcium Carbonate [Tums] 1,000 mg PO TID PRN #0 tab.chew 10/12/16 [Rx] PredniSONE 40 mg PO BIDWM #38 tablet 10/12/16 [Rx] Allergies/Adverse Reactions: Allergies Penicillins Allergy (Severe, Verified 06/30/16 18:09) Anaphylaxis diphenhydramine Allergy (Verified 09/30/16 19:52) See Comments fentanyl Allergy (Verified 09/30/16 19:52) See Comments lidocaine Allergy (Verified 09/30/16 19:52) See Comments midazolam Allergy (Verified 09/30/16 19:52) See Comments venlafaxine [From Effexor] Adverse Reaction (Unknown, Verified 06/30/16 18:09) See Comments "Made me go into a coma." Date of admission: 09/30/16 21:54 [facility] Consults: 10/06/16 15:07 Consult to Occupational Therapy [CONS] Stat Comment: Evaluate, develop and implement POC Consult to Physical Therapy [CONS] Stat Comment: Evaluate, develop and implement POC 09/30/16 23:16 Consult to Customer Complaint Clerk [CONS] Routine Reason for SW Consult: Alcohol withdrawal on CIWA protocol 10/01/16 10:00 Consult to Interpret Exam [CONS] Routine Consulting Provider: Ladan Vieyra Consult to Interpret Exam: Interpret EEG Discharging clinician: David Skinner Anticipated date of discharge: 10/12/16 - Patient Status Disposition: Transfer 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) [facility] With: [facility] [Primary Care Provider[facility] - Additional Instructions: Take all medications prescribed: Continue home medications Prednisone taper as directed: 40 mg prednisone twice a day for 5 days 20 mg prednisone twice a day for 5 days 10 mg prednisone twice a day for 5 days 10 mg prednisone once a day for 5 days Follow-up with your PCP at the [facility] in 1-2 weeks Return to emergency room if worsening of symptoms, increased shortness of breath , chest pain, or additional syncopal episodes - Diet and Activity Activity: as per physical therapy, increase activity as tolerated Diet: low salt diet Interval History: Patient reports that he is doing well today. He states that he has some continued shortness of breath, but this is at his baseline given his history of COPD. He also reports some GERD pain in his stomach. Besides this he has no other complaints today. Hospital course: Mr. Salmon is a 71 year old male who presented to [place] with chief concern: Worsening shortness of breath, chest tightness and syncope Comorbidities would include: Asthma, atrial fibrillation, liver cirrhosis, COPD , CAD, GERD, prior GI bleed, hypertension, seizures, chronic systolic CHF Hospital course: Mr. Salmon is transferred from the [facility] because he was having worsening shortness of breath, chest tightness, an episode of syncope that morning. He has been having a cough for 3 months prior to admission that had been worsening acutely. At [place] he was found to have acute on chronic respiratory failure secondary to an acute exacerbation of chronic obstructive pulmonary disease. His chest tightness was attributed to his current respiratory status. He was evaluated by neurology due to concern of sepsis syncope, but he has a known seizure disorder and alcohol abuse. He suspected that the syncopal event was secondary to a seizure more than syncope itself. He was treated with breathing treatments, steroids, and antibiotics. His breathing slowly improved and he is a/stable for discharge with continuation of rehabilitation at the [facility] facility. At time of discharge, patient was clinically improved, hemodynamically stable, progressing to baseline, and agreeable with plan of care. Patient was advised to seek immediate medical attention for any new or worsening symptoms including but not limited to fever, chills, chest pain, chest pressure, dyspnea, cough, abdominal pain, nausea, vomiting, diarrhea, bloody stool, urine and the patient voiced understanding. Patient will follow-up with primary care physician: - Time Spent with Patient Total time spent providing and/or coordinating discharge services: Greater than 30 minutes - Constitutional Vitals: Temp Pulse Resp BP Pulse Ox 99.5 F 86 16 127/70 100 10/12/16 06:08 10/12/16 06:08 10/12/16 08:47 10/12/16 06:08 10/12/16 08:47 General appearance: Present: A&O X 3, answers questions appropriately Exam: General: Cooperative, pleasant, no acute distress, alert and oriented 3, answers questions appropriately Head: Normocephalic, atraumatic Eye: Conjunctiva pink, sclera anicteric, EOMI, PERRL Neck: Supple, trachea midline Respiratory: No accessory muscle usage, clear to auscultation bilaterally, no wheezes/rhonchi/rales appreciated Cardiovascular: Regular rate and rhythm, S1 and S2 present, no murmurs/rubs/ gallops/clicks appreciated GI/abdominal: Nondistended, mild tenderness in epigastric region, soft, normal bowel sounds, no peritoneal signs Extremities: No calf tenderness, noncyanotic, no pedal edema appreciated, warm, lower extremity pulses palpable and symmetrical Neurological: Alert and oriented 3, no facial droop, no focal deficits Skin: Dry, intact, normal color - VTE Documentation of Mechanical Device: Graduated compression elastic hosiery <Bubba Holm P - Last Filed: 10/12/16 18:23> Date of Encounter: 10/12/16 - Discharge Diagnosis (1) Acute and chronic respiratory failure Status: Acute Qualifiers: Respiratory failure complication: hypoxia Qualified Code(s): J96.21 - Acute and chronic respiratory failure with hypoxia (2) Acute exacerbation of chronic obstructive airways disease Status: Acute (3) Chest pain Status: Acute Qualifiers: Chest pain type: chest pain on breathing Qualified Code(s): R07.1 - Chest pain on breathing (4) Syncope Status: Acute Qualifiers: Syncope type: unspecified Qualified Code(s): R55 - Syncope and collapse Date of admission: 09/30/16 21:54 Primary [facility] physician[facility] Consults: 10/06/16 15:07 Consult to Occupational Therapy [CONS] Stat Comment: Evaluate, develop and implement POC Consult to Physical Therapy [CONS] Stat Comment: Evaluate, develop and implement POC 09/30/16 23:16 Consult to Customer Complaint Clerk [CONS] Routine Reason for SW Consult: Alcohol withdrawal on CIWA protocol 10/01/16 10:00 Consult to Interpret Exam [CONS] Routine Consulting Provider: Ladan Vieyra Consult to Interpret Exam: Interpret EEG Hospital course: Mr. Salmon is a 71 year old male - Time Spent with Patient Total time spent providing and/or coordinating discharge services: - Constitutional Vitals: Temp Pulse Resp BP Pulse Ox 99.5 F 86 16 127/70 100 10/12/16 06:08 10/12/16 06:08 10/12/16 11:12 10/12/16 06:08 10/12/16 11:12 - Attending Attestation I examined this patient and my medical decision-making was reviewed with the COUNTER INTELLIGENCE/PA/Advanced Practice Nurse/Resident Physician. I agree with the documented findings, disposition and treatment plan as described except to the extent set forth below.
--- NOTE | 2016-10-12 10:22 | Physician Discharge Referral ---
<David Skinner - Last Filed: 10/12/16 15:22> [facility] Referral Info Transfer To: Rehabilitation Provider in Charge after Transfer: PCP Institutional Level of Care: Skilled - Diagnosis (1) Acute and chronic respiratory failure Priority: Primary Status: Acute (2) Acute exacerbation of chronic obstructive airways disease Priority: Primary Status: Acute (3) Chest pain Priority: Primary Status: Acute (4) Syncope Priority: Primary Status: Acute - Transfer Medications Prescriptions: PredniSONE 40 mg PO BIDWM #38 tablet Home Medications: Albuterol Sulfate [Albuterol Inhaler] 2 puff IH QID PRN 05/07/15 [History] Folic Acid 1 mg PO DAILY 05/07/15 [History] Isosorbide MONOnitrate [Isosorbide Mononitrate ER] 30 mg PO DAILY 05/07/15 [ History] Omeprazole [PriLOSEC] 20 mg PO BID 05/07/15 [History] Thiamine HCl [Vitamin B-1] 100 mg PO DAILY 05/07/15 [History] Tiotropium [Spiriva] 18 mcg IH DAILY 05/07/15 [History] Clopidogrel [Plavix] 75 mg PO DAILY #14 tablet 06/25/15 [Rx] Magnesium Oxide [Mag-Ox] 400 mg PO BID #0 tablet 09/02/15 [Rx] Albuterol Neb [Proventil Neb] 2.5 mg IH Q6H PRN 04/24/16 [History] Sucralfate [Carafate] 1 gm PO QID 04/24/16 [History] Potassium Chloride 20 meq PO DAILY 30 Days 04/28/16 [Rx] Mometasone Furoate [Asmanex] 220 mcg IH DAILY 06/30/16 [History] Phenytoin ER [Dilantin ER] 200 mg PO QAM 06/30/16 [History] Aspirin [Lo-Dose Aspirin EC] 81 mg PO DAILY 09/30/16 [History] Buspirone HCl [Buspar] 7.5 mg PO BID PRN 09/30/16 [History] Cyanocobalamin (Vitamin B-12) [Vitamin B-12] 100 mcg PO HS 09/30/16 [History] Diltiazem HCl [Diltiazem 24Hr Cd] 240 mg PO DAILY 09/30/16 [History] Ferrous Gluconate 324 mg PO DAILY 09/30/16 [History] Furosemide [Lasix] 20 mg PO QPM 09/30/16 [History] Furosemide [Lasix] 40 mg PO QAM 09/30/16 [History] Melatonin 9 mg PO HS PRN 09/30/16 [History] Multivitamin with Minerals [Myvitalife] 1 each PO DAILY 09/30/16 [History] Olodaterol HCl [Striverdi Respimat] 2 puff IH DAILY 09/30/16 [History] Prazosin [Minipress] 3 mg PO HS 09/30/16 [History] Sertraline [Zoloft] 50 mg PO QAM 09/30/16 [History] Calcium Carbonate [Tums] 1,000 mg PO TID PRN #0 tab.chew 10/12/16 [Rx] PredniSONE 40 mg PO BIDWM #38 tablet 10/12/16 [Rx] Allergies/Adverse Reactions: Allergies Penicillins Allergy (Severe, Verified 06/30/16 18:09) Anaphylaxis diphenhydramine Allergy (Verified 09/30/16 19:52) See Comments fentanyl Allergy (Verified 09/30/16 19:52) See Comments lidocaine Allergy (Verified 09/30/16 19:52) See Comments midazolam Allergy (Verified 09/30/16 19:52) See Comments venlafaxine [From Effexor] Adverse Reaction (Unknown, Verified 06/30/16 18:09) See Comments "Made me go into a coma." - Respiratory Orders Oxygen / L per min (2.5-4 L) Smoking Cessation: Smoking cessation has been advised. For more information, call the [place] Tobacco Quit Line at 5-550-VBYF-NOW. - Advance Directives Code Status: Full Code - Mobility Orders Ambulate - Rehabiliation Orders Rehab Potential: Fair Rehab Orders: Evaluation for Physical Therapy, Evaluation for Occupational Therapy - Diet Orders Cardiac CERTIFICATION: I certify that the transfer of the above named patient to an Extended Care Facility is necessary for the continuing treatment of the diagnosis listed. The above information is true and accurate reflection of patient's current condition. Confidential - Redisclosure prohibited without a patient's written consent. <Bubba Holm - Last Filed: 10/12/16 18:24> - Diagnosis (1) Acute and chronic respiratory failure Status: Acute (2) Acute exacerbation of chronic obstructive airways disease Status: Acute (3) Chest pain Status: Acute (4) Syncope Status: Acute - Respiratory Orders Smoking Cessation: Smoking cessation has been advised. For more information, call the [place] Tobacco Quit Line at 5-059-QDAQNOW. CERTIFICATION: I certify that the transfer of the above named patient to an Extended Care Facility is necessary for the continuing treatment of the diagnosis listed. The above information is true and accurate reflection of patient's current condition. Confidential - Redisclosure prohibited without a patient's written consent.
[2016-10-12] MEDS: Acetaminophen 325 MG TABLET PO PRN (20:39)
[2016-10-13] MEDS: GuaiFENesin Liq 200 MG/10 ML UDC PO PRN ×4 (02:53→23:28)
[2016-10-13] MEDS: Ipratropium/Albuterol Neb 3 ML IH SCH ×6 (04:31→23:18)
[2016-10-13] MEDS: Beclomethasone 80mcg MDI IH SCH (07:55)
--- NOTE | 2016-10-13 08:51 | EEG/EMG/Oth Biometrics Report ---
EEG Procedure Report Date of procedure: 10/01/16 EEG Procedure: Routine EEG Procedure Note: This EEG was acquired with standard international 1020 system with EKG recording. The background EEG activity was replaced by low amplitude fast activity. The background activity was reactive to eye openings. Sleep stages were not identified during this tracing. There are no electrographic seizures identified during this tracing. There are no epileptiform discharges and focal slowing noted during this recording. Photic stimulation produced and produced no abnormalities. Hyperventilation procedure not performed. EKG tracing showed no significant cardiac dysrhythmia. Impression: Poor quality awake EEG. No electrographic seizures, no epileptiform discharges or focal slowing noted. Clinical Correlation: Normal EEGs, however, do not exclude epilepsy. If clinical suspicion of seizure disorder is high, repeat EEG with sleep deprivation may be beneficial. Clinical correlation is advised.
--- NOTE | 2016-10-13 08:52 | Internal Med Progress Note ---
<David Skinner - Last Filed: 10/13/16 10:07> Date of Encounter: 10/13/16 Time of Encounter: 08:15 - Assessment and plan (1) Acute and chronic respiratory failure Status: Acute Assessment and plan: Continues to slowly improve. Plan for d/c back to [facility] was rejected, social media community manager on board to help with placement, hopefully going to facility in [place]. SW working on placement Continue PO prednisone 40 mg BID Qualifiers: Respiratory failure complication: hypoxia Qualified Code(s): J96.21 - Acute and chronic respiratory failure with hypoxia (2) Acute exacerbation of chronic obstructive airways disease Status: Acute Assessment and plan: Steroids decreased 3 days ago. Now receiving 40mg PO BIDWM. Seems to be slowly improving. Will continue current plan. (3) Chest pain Status: Acute Assessment and plan: Doing better today, pain associated with breathing. Continue Tylenol for pain. Qualifiers: Chest pain type: chest pain on breathing Qualified Code(s): R07.1 - Chest pain on breathing (4) Syncope Status: Acute Assessment and plan: Has not recurred. Appears to have been related to lack of benzodiazepine +/- alcohol. Also has seizure disorder which he has not been taking meds. Continue supportive care. No changes for now. Qualifiers: Syncope type: unspecified Qualified Code(s): R55 - Syncope and collapse - Subjective Interval history: He reports that he is doing well today, stating that he feels that his breathing has improved. He has no complaints of abdominal pain, nausea, shortness of breath, cough, fever, or chest pain. - Constitutional Vitals: Temp Pulse Resp BP Pulse Ox 98.6 F 74 17 97/59 98 10/13/16 06:51 10/13/16 06:51 10/13/16 07:58 10/13/16 06:51 10/13/16 07:58 General appearance: Present: A&O X 3, answers questions appropriately Exam: General: Cooperative, pleasant, no acute distress, alert and oriented 3, answers questions appropriately Head: Normocephalic, atraumatic Eye: Conjunctiva pink, sclera anicteric, EOMI Neck: Supple, trachea midline Respiratory: No accessory muscle usage,Slight bibasilar rales auscultated Cardiovascular: Regular rate and rhythm, S1 and S2 present, no murmurs/rubs/ gallops/clicks appreciated GI/abdominal: Nondistended, nontender, soft, normal bowel sounds, no peritoneal signs Extremities: No calf tenderness, noncyanotic, no pedal edema appreciated, warm, lower extremity pulses palpable and symmetrical Neurological: Alert and oriented 3, no facial droop, no focal deficits Skin: Dry, intact, normal color Internal Medicine: Result - Labs CBC & Chem 7: 10/12/16 04:48 10/12/16 04:48 - ABG Interpretation ABG results: PT/INR, D-dimer PT 12.2 Seconds (9.4-12.1) H 10/01/16 00:10 - VTE Documentation of Mechanical Device: Graduated compression elastic hosiery Consult Discharge Plan - Plan Instructions: Heart Failure (DC), Atrial Fibrillation (DC), Urinary Tract Infection in Men (DC), Benzodiazepine Abuse (DC), Benzodiazepine Abuse (GEN), Chronic Obstructive Pulmonary Disease (DC), Abuse of Alcohol (DC), Abuse of Alcohol (GEN), Cigarette Smoking and Your Health, Tabulating Supervisor (GEN) Additional Instructions: Take all medications prescribed: Continue home medications Prednisone taper as directed: 40 mg prednisone twice a day for 5 days 20 mg prednisone twice a day for 5 days 10 mg prednisone twice a day for 5 days 10 mg prednisone once a day for 5 days Follow-up with your PCP at the [facility] in 1-2 weeks Return to emergency room if worsening of symptoms, increased shortness of breath , chest pain, or additional syncopal episodes Referrals: [facility],PCP [Primary Care Provider] - 10/23/16 11:00 am Prescriptions: PredniSONE 40 mg PO BIDWM #38 tablet <Bubba Holm P - Last Filed: 10/24/16 23:02> - Assessment and plan (1) Acute and chronic respiratory failure Status: Acute Qualifiers: Respiratory failure complication: hypoxia Qualified Code(s): J96.21 - Acute and chronic respiratory failure with hypoxia (2) Acute exacerbation of chronic obstructive airways disease Status: Acute (3) Chest pain Status: Acute Qualifiers: Chest pain type: chest pain on breathing Qualified Code(s): R07.1 - Chest pain on breathing (4) Syncope Status: Acute Qualifiers: Syncope type: unspecified Qualified Code(s): R55 - Syncope and collapse - Constitutional Vitals: Temp Pulse Resp BP Pulse Ox 98.0 F 79 20 121/87 96 10/14/16 08:10 10/14/16 08:10 10/14/16 11:41 10/14/16 08:10 10/14/16 11:41 Internal Medicine: Result - Labs CBC & Chem 7: 10/13/16 09:41 10/13/16 09:41 - ABG Interpretation ABG results: PT/INR, D-dimer PT 12.2 Seconds (9.4-12.1) H 10/01/16 00:10 - Attending Attestation I examined this patient and my medical decision-making was reviewed with the FINISHING SUPERVISOR/PA/Advanced Practice Nurse/Resident Physician. I agree with the documented findings, disposition and treatment plan as described except to the extent set forth below.
[2016-10-13 10:09] LABS: Basophils # 0.1 K/mcL (0.0-0.2); Basophils % 0.3 %; Eosinophils % 0.2 %; Hemoglobin 12.4 g/dL (12.9-16.9); Lymphocytes # 2.1 K/mcL (0.6-4.6); Lymphocytes % 11.3 %; Mean Corpuscular HGB Conc 34.4 g/dL (31.6-35.5); Mean Corpuscular Hemoglobin 33.8 pg (28.0-33.3); Mean Corpuscular Volume 98.1 fL (83.0-100.0); Mean Platelet Volume 10.5 fL (9.4-12.4); Monocytes # 0.9 K/mcL (0.0-1.3); Monocytes % 4.6 %; Neutrophils # 15.2 K/mcL (1.6-8.9); Platelet Count 216 K/mcL (140-400); Red Blood Count 3.67 M/mcL (4.19-5.50); Red Cell Distribution Width 15.3 % (11.5-14.5); Segmented Neutrophils % 81.6 %
[2016-10-13 10:42] LABS: BUN/Creatinine Ratio 45 (6-26); Blood Urea Nitrogen 35 mg/dL (8-26); Calcium 8.8 mg/dL (8.6-10.8); Carbon Dioxide 25 mEq/L (19-29); Chloride 103 mEq/L (98-109); Glucose 98 mg/dL (70-99); Osmolality,Calculated 288 (280-300); Sodium 135 mEq/L (136-145); eGFR For African Americans > 60 (> 60); eGFR For Non-African Americans > 60 (> 60)
[2016-10-13] MEDS: predniSONE 20 MG TABLET PO SCH ×2 (10:42→16:26)
[2016-10-13] MEDS: Furosemide 40 MG TABLET PO SCH ×2 (10:43→20:58)
[2016-10-13] MEDS: Diltiazem CD (24hr) 240 MG CAPSULE PO SCH (10:43)
[2016-10-13] MEDS: Sucralfate 1 GM TABLET PO SCH ×4 (10:43→20:58)
[2016-10-13] MEDS: Isosorbide MONOnitrate (24 HR) 30 MG TAB.ER.24H PO SCH (10:43)
[2016-10-13] MEDS: Multivit/Ca/Min/Fe/FA 1 TAB TABLET PO SCH (10:43)
[2016-10-13] MEDS: *HR* LORazepam 0.5 MG TABLET PO SCH ×2 (10:43→20:58)
[2016-10-13] MEDS: Thiamine (B-1) 100 MG TABLET PO SCH (10:43)
[2016-10-13] MEDS: Magnesium Oxide 400 MG TABLET PO SCH ×2 (10:44→20:58)
[2016-10-13] MEDS: Aspirin Enteric Coated 81 MG Tablet PO SCH (10:44)
[2016-10-13] MEDS: Folic Acid 1 MG TABLET PO SCH (10:44)
[2016-10-13] MEDS: Mag Hydrox/Al Hydrox/Simeth 30 ML UDC PO PRN (14:10)
--- NOTE | 2016-10-13 15:33 | Physician Discharge Referral ---
<David Skinner - Last Filed: 10/13/16 15:31> Home Health/Hosp Referral Info Transfer to: Home Health Provider in Charge Post Discharge: PCP - Diagnosis (1) Acute and chronic respiratory failure Priority: Primary Status: Acute (2) Acute exacerbation of chronic obstructive airways disease Priority: Primary Status: Acute (3) Chest pain Priority: Primary Status: Acute (4) Syncope Priority: Primary Status: Acute - Respiratory Orders Oxygen / L per min (2.5-4 L/min) Smoking Cessation: Smoking cessation has been advised. For more information, call the [place] Tobacco Quit Line at 2-986-KCFP-NOW. - Activity Activity Orders: Ambulate - Services Needed Following services are medically necessary services: Nursing, Home Health Aide, Physical Therapy, Occupational Therapy - Transfer Medications Prescriptions: PredniSONE 40 mg PO BIDWM #38 tablet Home Medications: Albuterol Sulfate [Albuterol Inhaler] 2 puff IH QID PRN 05/07/15 [History] Folic Acid 1 mg PO DAILY 05/07/15 [History] Isosorbide MONOnitrate [Isosorbide Mononitrate ER] 30 mg PO DAILY 05/07/15 [ History] Omeprazole [PriLOSEC] 20 mg PO BID 05/07/15 [History] Thiamine HCl [Vitamin B-1] 100 mg PO DAILY 05/07/15 [History] Tiotropium [Spiriva] 18 mcg IH DAILY 05/07/15 [History] Clopidogrel [Plavix] 75 mg PO DAILY #14 tablet 06/25/15 [Rx] Magnesium Oxide [Mag-Ox] 400 mg PO BID #0 tablet 09/02/15 [Rx] Albuterol Neb [Proventil Neb] 2.5 mg IH Q6H PRN 04/24/16 [History] Sucralfate [Carafate] 1 gm PO QID 04/24/16 [History] Potassium Chloride 20 meq PO DAILY 30 Days 04/28/16 [Rx] Mometasone Furoate [Asmanex] 220 mcg IH DAILY 06/30/16 [History] Phenytoin ER [Dilantin ER] 200 mg PO QAM 06/30/16 [History] Aspirin [Lo-Dose Aspirin EC] 81 mg PO DAILY 09/30/16 [History] Buspirone HCl [Buspar] 7.5 mg PO BID PRN 09/30/16 [History] Cyanocobalamin (Vitamin B-12) [Vitamin B-12] 100 mcg PO HS 09/30/16 [History] Diltiazem HCl [Diltiazem 24Hr Cd] 240 mg PO DAILY 09/30/16 [History] Ferrous Gluconate 324 mg PO DAILY 09/30/16 [History] Furosemide [Lasix] 20 mg PO QPM 09/30/16 [History] Furosemide [Lasix] 40 mg PO QAM 09/30/16 [History] Melatonin 9 mg PO HS PRN 09/30/16 [History] Multivitamin with Minerals [Myvitalife] 1 each PO DAILY 09/30/16 [History] Olodaterol HCl [Striverdi Respimat] 2 puff IH DAILY 09/30/16 [History] Prazosin [Minipress] 3 mg PO HS 09/30/16 [History] Sertraline [Zoloft] 50 mg PO QAM 09/30/16 [History] Calcium Carbonate [Tums] 1,000 mg PO TID PRN #0 tab.chew 10/12/16 [Rx] PredniSONE 40 mg PO BIDWM #38 tablet 10/12/16 [Rx] Allergies/Adverse Reactions: Allergies Penicillins Allergy (Severe, Verified 06/30/16 18:09) Anaphylaxis diphenhydramine Allergy (Verified 09/30/16 19:52) See Comments fentanyl Allergy (Verified 09/30/16 19:52) See Comments lidocaine Allergy (Verified 09/30/16 19:52) See Comments midazolam Allergy (Verified 09/30/16 19:52) See Comments venlafaxine [From Effexor] Adverse Reaction (Unknown, Verified 06/30/16 18:09) See Comments "Made me go into a coma." Certification: Further, I certify that my clinical findings support that this patient is homebound (i.e. absences from home require considerable and taxing effort and are for medical reasons or sabianism services or infrequently or short duration when for other reasons) because: Homebound Reason: Patient requires assistance of a person or device to safely leave home, Severity of cardiac or pulmonary status limits activity tolerance Attestation: My signature below is to certify that this patient is under my care and that I, or nurse practitioner, or a physician's assistant purchasing manager working with me, has a face-to -face encounter with this patient. <Bubba Holm P - Last Filed: 10/24/16 23:02> - Diagnosis (1) Acute and chronic respiratory failure Status: Acute (2) Acute exacerbation of chronic obstructive airways disease Status: Acute (3) Chest pain Status: Acute (4) Syncope Status: Acute - Respiratory Orders Smoking Cessation: Smoking cessation has been advised. For more information, call the [place] Tobacco Quit Line at 5-144-GJMW-NOW. Certification: Further, I certify that my clinical findings support that this patient is homebound (i.e. absences from home require considerable and taxing effort and are for medical reasons or sabianism services or infrequently or short duration when for other reasons) because: Attestation: My signature below is to certify that this patient is under my care and that I, or nurse practitioner, or a physician's assistant purchasing manager working with me, has a face-to -face encounter with this patient.
[2016-10-13] MEDS: Acetaminophen 325 MG TABLET PO PRN (18:23)
[2016-10-13] MEDS: Benzonatate 100 MG CAPSULE PO PRN (21:11)
[2016-10-13] MEDS: Menthol 9.1 MG LOZENGE PO PRN (21:13)
[2016-10-14] MEDS: Mag Hydrox/Al Hydrox/Simeth 30 ML UDC PO PRN ×2 (02:37→10:41)
[2016-10-14] MEDS: Ipratropium/Albuterol Neb 3 ML IH SCH ×3 (03:52→11:40)
[2016-10-14] MEDS: Beclomethasone 80mcg MDI IH SCH (07:52)
[2016-10-14 08:26] VITALS: BP 121/87
[2016-10-14] MEDS: Magnesium Oxide 400 MG TABLET PO SCH (10:30)
[2016-10-14] MEDS: Isosorbide MONOnitrate (24 HR) 30 MG TAB.ER.24H PO SCH (10:30)
[2016-10-14] MEDS: Diltiazem CD (24hr) 240 MG CAPSULE PO SCH (10:30)
[2016-10-14] MEDS: Aspirin Enteric Coated 81 MG Tablet PO SCH (10:30)
[2016-10-14] MEDS: predniSONE 20 MG TABLET PO SCH (10:30)
[2016-10-14] MEDS: Folic Acid 1 MG TABLET PO SCH (10:30)
[2016-10-14] MEDS: Sucralfate 1 GM TABLET PO SCH (10:30)
[2016-10-14] MEDS: *HR* LORazepam 0.5 MG TABLET PO SCH (10:30)
[2016-10-14] MEDS: Multivit/Ca/Min/Fe/FA 1 TAB TABLET PO SCH (10:31)
[2016-10-14] MEDS: Thiamine (B-1) 100 MG TABLET PO SCH (10:31)
[2016-10-14] MEDS: Furosemide 40 MG TABLET PO SCH (10:31)
[2016-10-14] MEDS: GuaiFENesin Liq 200 MG/10 ML UDC PO PRN (10:41)
== END 2016-10-14 13:15 | disposition home health service (06) | DRG 189 ==
LOC: EMEROO 19:48 → SUATTDRO 21:54 → 2NENU 21:54
PROVIDERS: ADMIT Nurse Practitioner Family; ATTEND Internal Medicine

== ENCOUNTER 2016-10-25 03:53 | Observation (INO) ==
--- NOTE | 2016-10-25 04:24 | Emergency Department Note ---
Disposition Clinical Impression: Atrial fibrillation with RVR Chest pain Qualifiers: Chest pain type: unspecified Qualified Code(s): R07.9 - Chest pain, unspecified Disposition: Admitted As Inpatient Time of Disposition: 08:06 Chest Pain HPI - General Chief Complaint: ED Chest Pain Stated Complaint: CP Time Seen by Provider: 10/25/16 04:21 Source: patient Limitations: no limitations Vital Signs Reviewed: Yes Nursing Notes Reviewed: Yes - History of Present Illness Pt complaint: chest pain Onset (ago): month(s) (1) Duration: gradually worsening Pain Location: substernal Severity scale (1-10): 8 Worsens with: exertion (3) Associated symptoms: Reports: dyspnea. Denies: palpitations, fever, cough Treatments prior to arrival chest pain: aspirin - Related Data Home Medications Medication Instructions Recorded Confirmed Albuterol Sulfate [Albuterol 2 puff IH QID PRN 05/07/15 09/30/16 Inhaler] Folic Acid 1 mg PO DAILY 05/07/15 09/30/16 Isosorbide MONOnitrate [Isosorbide 30 mg PO DAILY 05/07/15 09/30/16 Mononitrate ER] Omeprazole [PriLOSEC] 20 mg PO BID 05/07/15 09/30/16 Thiamine HCl [Vitamin B-1] 100 mg PO DAILY 05/07/15 09/30/16 Tiotropium [Spiriva] 18 mcg IH DAILY 05/07/15 09/30/16 Albuterol Neb [Proventil Neb] 2.5 mg IH Q6H PRN 04/24/16 09/30/16 Sucralfate [Carafate] 1 gm PO QID 04/24/16 09/30/16 Mometasone Furoate [Asmanex] 220 mcg IH DAILY 06/30/16 09/30/16 Phenytoin ER [Dilantin ER] 200 mg PO QAM 06/30/16 09/30/16 Aspirin [Lo-Dose Aspirin EC] 81 mg PO DAILY 09/30/16 09/30/16 Buspirone HCl [Buspar] 7.5 mg PO BID PRN 09/30/16 09/30/16 Cyanocobalamin (Vitamin B-12) 100 mcg PO HS 09/30/16 09/30/16 [Vitamin B-12] Diltiazem HCl [Diltiazem 24Hr Cd] 240 mg PO DAILY 09/30/16 09/30/16 Ferrous Gluconate 324 mg PO DAILY 09/30/16 09/30/16 Furosemide [Lasix] 20 mg PO QPM 09/30/16 09/30/16 Furosemide [Lasix] 40 mg PO QAM 09/30/16 09/30/16 Melatonin 9 mg PO HS PRN 09/30/16 09/30/16 Multivitamin with Minerals 1 each PO DAILY 09/30/16 09/30/16 [Myvitalife] Olodaterol HCl [Striverdi Respimat] 2 puff IH DAILY 09/30/16 09/30/16 Prazosin [Minipress] 3 mg PO HS 09/30/16 09/30/16 Sertraline [Zoloft] 50 mg PO QAM 09/30/16 09/30/16 Previous Rx's Medication Instructions Recorded Clopidogrel [Plavix] 75 mg PO DAILY #14 tablet 06/25/15 Magnesium Oxide [Mag-Ox] 400 mg PO BID #0 tablet 09/02/15 Potassium Chloride 20 meq PO DAILY 30 Days 04/28/16 Calcium Carbonate [Tums] 1,000 mg PO TID PRN #0 tab.chew 10/12/16 PredniSONE 40 mg PO BIDWM #38 tablet 10/12/16 Allergies Allergy/AdvReac Type Severity Reaction Status Date / Time Penicillins Allergy Severe Anaphylaxis Verified 06/30/16 18:09 diphenhydramine Allergy See Verified 09/30/16 19:52 Comments fentanyl Allergy See Verified 09/30/16 19:52 Comments lidocaine Allergy See Verified 09/30/16 19:52 Comments midazolam Allergy See Verified 09/30/16 19:52 Comments venlafaxine [From Effexor] AdvReac Unknown See Verified 06/30/16 18:09 Comments All systems ED: reviewed and negative except as stated. Constitutional: Denies: fever, chills Eyes: Denies: eye pain ENT ED: Denies: ear pain Cardiovascular: Reports: as per HPI. Denies: palpitations Respiratory: Denies: cough, dyspnea Gastrointestinal: Denies: abdominal pain, nausea, vomiting Genitourinary: Denies: dysuria Musculoskeletal: Denies: back pain Integumentary: Denies: rash Neurological: Denies: headache Psychiatric: Denies: anxiety Endocrine: Denies: fatigue Hematological/Lymphatic: Denies: easy bleeding Allergic/Immunologic: Denies: facial swelling Chest Pain PMH - Past Medical History Medical history: Reports: asthma, atrial fibrillation, cirrhosis, COPD, coronary artery disease, GI bleed, liver disease, seizures, other Surgical history: Reports: angioplasty/stent Psychiatric history: Reports: depression, panic disorder, PTSD - Social History Smoking Status: Current some day smoker Alcohol use: Reports: heavy Drug use: Reports: none Physical Exam - General Limitations: no limitations General appearance: alert, in no apparent distress - Head Head exam: normal inspection - Eye Eye exam: Present: EOMI - ENT ENT exam: normal exam, normal oropharynx, mucous membranes moist - Neck Neck exam: Present: full ROM - Chest Chest inspection: Present: normal inspection, symmetric chest wall rise - Respiratory Respiratory exam: Absent: respiratory distress - Cardiovascular Cardiovascular exam: Present: regular rate, tachycardia, irregular rhythm - Abdominal Exam Abdominal exam: Present: soft, Non-Tender - Extremities Exam Extremities exam: Present: normal inspection, normal capillary refill, pedal edema - Back Exam Back exam: Present: normal inspection, full ROM - Neurological Exam Neurological exam: Present: alert - Psychiatric Psychiatric exam: Present: normal affect, normal mood - Skin Skin exam: Present: warm, dry, intact, normal color. Absent: rash, cyanosis, diaphoresis Course Course Narrative: 71-year-old male who arrives via squad with chest pain. Patient states his chest pain has been occurring for months, but states that has worsened in the past week. It is accompanied with shortness of breath and, as worse with exertion. Denies any nausea, neck or extremity pain, or diaphoresis. He denies any past ME. He mentions a recent hospitalization, he denies any recent cardiac workup. He mentions his last stress test was about a year ago. He mentions he is seen at the [facility]. Patient had taken 1 aspirin prior to squ, and [facility] also had administered aspirin. Patient seen and examined. He appears in no acute distress toxic. Denies narcotic pain medications at this time. We will try nitroglycerin. EKG shows normal sinus rhythm with PVCs. Workup initiated. - Reevaluation(s) Reevaluation #1: Repeat EKG shows a-fib with rvr, minimal ST depression. Discussed pt with Dr. Arrieta, who agreed for decision to admit. Will order cardizem Time: 07:45 Reevaluation #2: discussed pt with Dr. Pavon who agreed to accept patient. Time: 08:06 Vital Signs Temperature 99.2 F 10/25/16 03:55 Pulse Rate 113 10/25/16 03:55 Respiratory Rate 18 10/25/16 03:55 Blood Pressure 137/80 10/25/16 03:55 O2 Sat by Pulse Oximetry 90 L 10/25/16 03:55 Temperature 99.2 F 10/25/16 03:55 Pulse Rate 98 10/25/16 07:56 Respiratory Rate 20 10/25/16 07:56 Blood Pressure 110/86 10/25/16 07:56 O2 Sat by Pulse Oximetry 91 L 10/25/16 07:56 Oxygen Delivery Oxygen Delivery Nasal Cannula Chest Pain - MDM Narrative Medical decision making narrative: Chest X-Ray 10/25/16 04:21 IMPRESSION: No acute disease. D/ / Levi Mendoza MD / Levi Mendoza MD Interpreting Provider: Levi Mendoza MD All Lab Results (24 Hours) 10/25/16 10/25/16 10/25/16 Range/Units 05:26 05:26 05:26 WBC 8.6 (4.3-11.1) K/mcL RBC 4.24 (4.19-5.50) M/mcL Hgb 14.3 (12.9-16.9) g/dL Hct 41.5 (37.5-50.1) % MCV 97.9 (83.0-100.0) fL MCH 33.7 H (28.0-33.3) pg MCHC 34.5 (31.6-35.5) g/dL RDW 15.7 H (11.5-14.5) % Plt Count 262 (140-400) K/mcL MPV 9.9 (9.4-12.4) fL Immature Gran % 1.3 (0-4) % Seg Neutrophils % 85.4 % Lymphocytes % 9.4 % Monocytes % 3.5 % Eosinophils % 0.2 % Basophils % 0.2 % Neutrophils # 7.3 (1.6-8.9) K/mcL Lymphocytes # 0.8 (0.6-4.6) K/mcL Monocytes # 0.3 (0.0-1.3) K/mcL Eosinophils # 0.0 (0.0-0.6) K/mcL Basophils # 0.0 (0.0-0.2) K/mcL PT 10.3 (9.4-12.1) Seconds INR 1.0 APTT > 360.0 H* (26.0-36.0) Seconds Heparin Anti-Xa, Unfract 0.08 L (0.30-0.70) IU/mL Sodium 141 (136-145) mEq/L Potassium 3.6 (3.5-4.5) mEq/L Chloride 103 (98-109) mEq/L Carbon Dioxide 21 (19-29) mEq/L BUN 35 H (8-26) mg/dL Creatinine 1.21 (0.72-1.25) mg/dL Est GFR ( Amer) > 60 (> 60) Est GFR (Non-Af Amer) 59 L (> 60) BUN/Creatinine Ratio 29 H (6-26) Glucose 122 H (70-99) mg/dL Calculated Osmolality 301 H (280-300) Calcium 8.7 (8.6-10.8) mg/dL Total Bilirubin 0.6 (0.2-1.2) mg/dL Direct Bilirubin 0.3 (0.0-0.5) mg/dL Indirect Bilirubin 0.3 (0.0-1.2) mg/dL AST 28 (5-34) Units/L ALT 43 (0-55) Units/L Alkaline Phosphatase 48 (38-126) Units/L Troponin I (0-0.03) ng/mL B-Natriuretic Peptide (0-100) pg/mL Serum Total Protein 6.2 (6.0-8.3) g/dL Albumin 2.8 L (3.5-5.0) g/dL Globulin 3.4 (2.4-3.5) g/dL Albumin/Globulin Ratio 0.8 L (1.1-2.2) Ethyl Alcohol Cancelled 10/25/16 10/25/16 10/25/16 Range/Units 05:26 05:26 05:26 WBC (4.3-11.1) K/mcL RBC (4.19-5.50) M/mcL Hgb (12.9-16.9) g/dL Hct (37.5-50.1) % MCV (83.0-100.0) fL MCH (28.0-33.3) pg MCHC (31.6-35.5) g/dL RDW (11.5-14.5) % Plt Count (140-400) K/mcL MPV (9.4-12.4) fL Immature Gran % (0-4) % Seg Neutrophils % % Lymphocytes % % Monocytes % % Eosinophils % % Basophils % % Neutrophils # (1.6-8.9) K/mcL Lymphocytes # (0.6-4.6) K/mcL Monocytes # (0.0-1.3) K/mcL Eosinophils # (0.0-0.6) K/mcL Basophils # (0.0-0.2) K/mcL PT (9.4-12.1) Seconds INR APTT (26.0-36.0) Seconds Heparin Anti-Xa, Unfract (0.30-0.70) IU/mL Sodium (136-145) mEq/L Potassium (3.5-4.5) mEq/L Chloride (98-109) mEq/L Carbon Dioxide (19-29) mEq/L BUN (8-26) mg/dL Creatinine (0.72-1.25) mg/dL Est GFR ( Amer) (> 60) Est GFR (Non-Af Amer) (> 60) BUN/Creatinine Ratio (6-26) Glucose (70-99) mg/dL Calculated Osmolality (280-300) Calcium (8.6-10.8) mg/dL Total Bilirubin (0.2-1.2) mg/dL Direct Bilirubin (0.0-0.5) mg/dL Indirect Bilirubin (0.0-1.2) mg/dL AST (5-34) Units/L ALT (0-55) Units/L Alkaline Phosphatase (38-126) Units/L Troponin I 0.03 (0-0.03) ng/mL B-Natriuretic Peptide 88 (0-100) pg/mL Serum Total Protein (6.0-8.3) g/dL Albumin (3.5-5.0) g/dL Globulin (2.4-3.5) g/dL Albumin/Globulin Ratio (1.1-2.2) Ethyl Alcohol 62 H - Medical Records Medical records reviewed: Yes I reviewed the patient's medical records. - Lab Data Lab results reviewed: Yes I reviewed the patient's lab results. Result diagrams: 10/25/16 05:26 10/25/16 05:26 Lab Results 10/25/16 10/25/16 10/25/16 Range/Units 05:26 05:26 05:26 WBC 8.6 (4.3-11.1) K/mcL RBC 4.24 (4.19-5.50) M/mcL Hgb 14.3 (12.9-16.9) g/dL Hct 41.5 (37.5-50.1) % MCV 97.9 (83.0-100.0) fL MCH 33.7 H (28.0-33.3) pg MCHC 34.5 (31.6-35.5) g/dL RDW 15.7 H (11.5-14.5) % Plt Count 262 (140-400) K/mcL MPV 9.9 (9.4-12.4) fL Immature Gran % 1.3 (0-4) % Seg Neutrophils % 85.4 % Lymphocytes % 9.4 % Monocytes % 3.5 % Eosinophils % 0.2 % Basophils % 0.2 % Neutrophils # 7.3 (1.6-8.9) K/mcL Lymphocytes # 0.8 (0.6-4.6) K/mcL Monocytes # 0.3 (0.0-1.3) K/mcL Eosinophils # 0.0 (0.0-0.6) K/mcL Basophils # 0.0 (0.0-0.2) K/mcL PT 10.3 (9.4-12.1) Seconds INR 1.0 APTT > 360.0 H* (26.0-36.0) Seconds Heparin Anti-Xa, Unfract 0.08 L (0.30-0.70) IU/mL Sodium 141 (136-145) mEq/L Potassium 3.6 (3.5-4.5) mEq/L Chloride 103 (98-109) mEq/L Carbon Dioxide 21 (19-29) mEq/L BUN 35 H (8-26) mg/dL Creatinine 1.21 (0.72-1.25) mg/dL Est GFR ( Amer) > 60 (> 60) Est GFR (Non-Af Amer) 59 L (> 60) BUN/Creatinine Ratio 29 H (6-26) Glucose 122 H (70-99) mg/dL Calculated Osmolality 301 H (280-300) Calcium 8.7 (8.6-10.8) mg/dL Total Bilirubin 0.6 (0.2-1.2) mg/dL Direct Bilirubin 0.3 (0.0-0.5) mg/dL Indirect Bilirubin 0.3 (0.0-1.2) mg/dL AST 28 (5-34) Units/L ALT 43 (0-55) Units/L Alkaline Phosphatase 48 (38-126) Units/L Troponin I (0-0.03) ng/mL B-Natriuretic Peptide (0-100) pg/mL Serum Total Protein 6.2 (6.0-8.3) g/dL Albumin 2.8 L (3.5-5.0) g/dL Globulin 3.4 (2.4-3.5) g/dL Albumin/Globulin Ratio 0.8 L (1.1-2.2) Ethyl Alcohol Cancelled 10/25/16 10/25/16 10/25/16 Range/Units 05:26 05:26 05:26 WBC (4.3-11.1) K/mcL RBC (4.19-5.50) M/mcL Hgb (12.9-16.9) g/dL Hct (37.5-50.1) % MCV (83.0-100.0) fL MCH (28.0-33.3) pg MCHC (31.6-35.5) g/dL RDW (11.5-14.5) % Plt Count (140-400) K/mcL MPV (9.4-12.4) fL Immature Gran % (0-4) % Seg Neutrophils % % Lymphocytes % % Monocytes % % Eosinophils % % Basophils % % Neutrophils # (1.6-8.9) K/mcL Lymphocytes # (0.6-4.6) K/mcL Monocytes # (0.0-1.3) K/mcL Eosinophils # (0.0-0.6) K/mcL Basophils # (0.0-0.2) K/mcL PT (9.4-12.1) Seconds INR APTT (26.0-36.0) Seconds Heparin Anti-Xa, Unfract (0.30-0.70) IU/mL Sodium (136-145) mEq/L Potassium (3.5-4.5) mEq/L Chloride (98-109) mEq/L Carbon Dioxide (19-29) mEq/L BUN (8-26) mg/dL Creatinine (0.72-1.25) mg/dL Est GFR ( Amer) (> 60) Est GFR (Non-Af Amer) (> 60) BUN/Creatinine Ratio (6-26) Glucose (70-99) mg/dL Calculated Osmolality (280-300) Calcium (8.6-10.8) mg/dL Total Bilirubin (0.2-1.2) mg/dL Direct Bilirubin (0.0-0.5) mg/dL Indirect Bilirubin (0.0-1.2) mg/dL AST (5-34) Units/L ALT (0-55) Units/L Alkaline Phosphatase (38-126) Units/L Troponin I 0.03 (0-0.03) ng/mL B-Natriuretic Peptide 88 (0-100) pg/mL Serum Total Protein (6.0-8.3) g/dL Albumin (3.5-5.0) g/dL Globulin (2.4-3.5) g/dL Albumin/Globulin Ratio (1.1-2.2) Ethyl Alcohol 62 H - Radiology Data Radiology results reviewed: Yes I reviewed the patient's radiology results. - EKG Data EKG attestation: Yes I reviewed and interpreted this EKG. EKG results narrative: Patient's initial EKG sinus tachycardia with svpcs. hr 108. no st changes. 2nd EKG A-fib with RVR wth minimal ST depression. HR 137 Critical Care Time Critical Care Time: Yes Total Critical Care Time: 35 Attestation: Critical care time spent managing patient's chest pain and A. fib with RVR. Attestation Statement - Attestation Attestation: Patient was seen with physician licensed nursing assistant. I reviewed the history, physical, assessment and plan, and agree with the findings. I also personally evaluated this patient and had [id number] time with this patient. This patient arrived prior to my arrival for shift in the emergency department. The overnight associate PA came to discuss the case with me and I did see the patient [id number]. He apparently presents the emergency department with chest pain as well as atrial fibrillation which she has had the past. Patient's been in and out of A. fib various times in his life, and now presents with chest pain she says the left side of his chest to shoulder. Pain was somewhat relieved with nitroglycerin which she received here but he still had mild discomfort. On examination heart was tachycardic with a regular rhythm. Lungs were diffuse wheezing. Abdomen was soft and nontender extremities are unremarkable. Workup real negative troponin and EKG with A. fib with rapid ventricular response. Patient was given nitroglycerin as well as Cardizem to try and improve his rate. Hospitalist was notified for admission is patient will need to be evaluated further for the chest pain and also to get his rate under more definitive control. I agree with the resident physician assessment and plan.
[2016-10-25] MEDS: Nitroglycerin 0.4 MG TAB.SUBL SL ONE ×3 (04:40→05:11)
[2016-10-25 05:44] LABS: Prothrombin Time 10.3 Seconds (9.4-12.1)
[2016-10-25 05:45] LABS: Basophils % 0.2 %; Eosinophils % 0.2 %; Hematocrit 41.5 % (37.5-50.1); Hemoglobin 14.3 g/dL (12.9-16.9); Immature Granulocytes % 1.3 % (0-4); Lymphocytes # 0.8 K/mcL (0.6-4.6); Lymphocytes % 9.4 %; Mean Corpuscular HGB Conc 34.5 g/dL (31.6-35.5); Mean Corpuscular Hemoglobin 33.7 pg (28.0-33.3); Mean Corpuscular Volume 97.9 fL (83.0-100.0); Mean Platelet Volume 9.9 fL (9.4-12.4); Monocytes # 0.3 K/mcL (0.0-1.3); Monocytes % 3.5 %; Neutrophils # 7.3 K/mcL (1.6-8.9); Platelet Count 262 K/mcL (140-400); Red Blood Count 4.24 M/mcL (4.19-5.50); Red Cell Distribution Width 15.7 % (11.5-14.5); Segmented Neutrophils % 85.4 %
[2016-10-25 05:51] LABS: BUN/Creatinine Ratio 29 (6-26); Blood Urea Nitrogen 35 mg/dL (8-26); Calcium 8.7 mg/dL (8.6-10.8); Carbon Dioxide 21 mEq/L (19-29); Chloride 103 mEq/L (98-109); Glucose 122 mg/dL (70-99); Osmolality,Calculated 301 (280-300); Potassium 3.6 mEq/L (3.5-4.5); Sodium 141 mEq/L (136-145); eGFR For African Americans > 60 (> 60); eGFR For Non-African Americans 59 (> 60)
[2016-10-25 06:04] LABS: Activated Partial Thrombo Time > 360.0 Seconds (26.0-36.0)
[2016-10-25 06:10] LABS: Heparin anti-factor XA UFH 0.08 IU/mL (0.30-0.70)
[2016-10-25 06:52] LABS: Alanine Aminotransferase 43 Units/L (0-55); Albumin 2.8 g/dL (3.5-5.0); Albumin/Globulin Ratio 0.8 (1.1-2.2); Alkaline Phosphatase 48 Units/L (38-126); Aspartate Amino Transferase 28 Units/L (5-34); Bilirubin,Direct 0.3 mg/dL (0.0-0.5); Bilirubin,Indirect 0.3 mg/dL (0.0-1.2); Bilirubin,Total 0.6 mg/dL (0.2-1.2); Globulin 3.4 g/dL (2.4-3.5); Total Protein 6.2 g/dL (6.0-8.3)
[2016-10-25] MEDS ORDERED: Ipratropium/Albuterol Neb 3 ML IH PRN (11:07)
[2016-10-25] MEDS: Diltiazem CD (24hr) 240 MG CAPSULE PO SCH (11:19)
--- NOTE | 2016-10-25 11:19 | Internal Med History&Physical ---
Date of Encounter: 10/25/16 Time of Encounter: 11:19 Assessment and Plan (1) Atrial fibrillation with RVR Current visit: Yes Status: Acute Patient with atrial fibrillation and rapid ventricular response. He was given intravenous diltiazem in the ER and has had improvement in his heart rate. We will place him back on his oral diltiazem regimen. Continue monitoring her to telemetry. Will add metoprolol if his heart rate remains uncontrolled. Patient not on chronic anticoagulation due to severe GI bleed . (2) Chest pain Current visit: Yes Status: Acute Likely related to A. fib and chest wall pain. Trend troponins. Continue monitoring with telemetry. Qualifiers: Chest pain type: precordial pain Qualified Code(s): R07.2 - Precordial pain (3) Acute respiratory failure with hypoxia Current visit: No Status: Acute (4) Alcohol dependence Current visit: Yes Status: Chronic Patient with chronic alcohol dependence. At risk for withdrawal. We will monitor vital signs and look for symptoms of alcohol withdrawal. Qualifiers: Substance use status: alcohol-induced anxiety disorder Qualified Code(s): F10.280 - Alcohol dependence with alcohol-induced anxiety disorder (5) Chronic systolic (congestive) heart failure Current visit: No Status: Chronic Patient with chronic congestive heart failure. Takes Lasix at home. We will give 1 dose of Lasix intravenously and then resume oral Lasix. (6) DVT prophylaxis Current visit: No Status: Acute subcutaneous heparin (7) Seizure disorder Current visit: No Status: Chronic Continue Dilantin. (8) Tobacco abuse Current visit: No Status: Chronic Will prescribe nicotine patch if patient is willing to use it. Internal Medicine - H&P: HPI Chief complaint: Chest pain, shortness of breath Admitted From: Emergency Dept Plans for Post Hospital Care: Home History of present illness: Mr. Salmon is a 71 year old male with a history of atrial fibrillation, alcohol abuse ,cirrhosis, pancreatitis, COPD, coronary artery disease, congestive heart failure, seizure disorder who presented to the ER with complaints of worsening chest pain. He says the pain has been going on for 6 weeks. He was last admitted in September here and treated for acute exacerbation of COPD and acute on chronic respiratory failure. He had then just been discharged to [facility]. He was discharged home from [facility] and says he has been taking his medications as prescribed. He does drink alcohol daily and he denies drinking excessively. He has been having cough without much sputum production. He does use oxygen at home. No nausea or vomiting. He does have abdominal pain and some lower chest wall pain due to excessive coughing. Denies any dizziness or lightheadedness. No focal weakness. No vision changes or slurred speech. Past Med Surg Social Fam HX - Past Medical History Medical history: asthma, atrial fibrillation, cirrhosis, COPD, coronary artery disease, GI bleed, liver disease, seizures, other Psychiatric history: depression, panic disorder, PTSD - Past Surgical History Surgical History: angioplasty/stent - Social History Smoking Status: Current some day smoker Smokeless Tobacco Status: No Alcohol use: heavy Drug use: none - Family History Father Adopted: No Family Member Ethnicity: Non- Living Status: Hx Family Cardiac Disorders: Yes (heart attack) Hx Family Respiratory Disorders: Yes (COPD) Hx Family Cancer: Yes (Testicular) Hx Family GI Disorders: No Hx Family Endocrine Disorder: No Hx Family Neuromuscular Disorders: No Hx Family Neurologic Disorders: No Hx Family HEENT Disorders: No Hx Family Autoimmune Disorders: No Mother Adopted: No Family Member Ethnicity: Non- Living Status: Hx Family Cancer: Yes (panc) Internal Medicine - H&P: Meds Albuterol Sulfate [Albuterol Inhaler] 2 puff IH QID PRN 05/07/15 [History] Folic Acid 1 mg PO DAILY 05/07/15 [History] Isosorbide MONOnitrate [Isosorbide Mononitrate ER] 30 mg PO DAILY 05/07/15 [ History] Omeprazole [PriLOSEC] 20 mg PO BID 05/07/15 [History] Thiamine HCl [Vitamin B-1] 100 mg PO DAILY 05/07/15 [History] Tiotropium [Spiriva] 18 mcg IH DAILY 05/07/15 [History] Clopidogrel [Plavix] 75 mg PO DAILY #14 tablet 06/25/15 [Rx] Magnesium Oxide [Mag-Ox] 400 mg PO BID #0 tablet 09/02/15 [Rx] Albuterol Neb [Proventil Neb] 2.5 mg IH Q6H PRN 04/24/16 [History] Sucralfate [Carafate] 1 gm PO QID 04/24/16 [History] Potassium Chloride 20 meq PO DAILY 30 Days 04/28/16 [Rx] Mometasone Furoate [Asmanex] 220 mcg IH DAILY 06/30/16 [History] Phenytoin ER [Dilantin ER] 200 mg PO QAM 06/30/16 [History] Aspirin [Lo-Dose Aspirin EC] 81 mg PO DAILY 09/30/16 [History] Buspirone HCl [Buspar] 7.5 mg PO BID PRN 09/30/16 [History] Cyanocobalamin (Vitamin B-12) [Vitamin B-12] 100 mcg PO HS 09/30/16 [History] Diltiazem HCl [Diltiazem 24Hr Cd] 240 mg PO DAILY 09/30/16 [History] Ferrous Gluconate 324 mg PO DAILY 09/30/16 [History] Furosemide [Lasix] 20 mg PO QPM 09/30/16 [History] Furosemide [Lasix] 40 mg PO QAM 09/30/16 [History] Melatonin 9 mg PO HS PRN 09/30/16 [History] Multivitamin with Minerals [Myvitalife] 1 each PO DAILY 09/30/16 [History] Olodaterol HCl [Striverdi Respimat] 2 puff IH DAILY 09/30/16 [History] Prazosin [Minipress] 3 mg PO HS 09/30/16 [History] Sertraline [Zoloft] 50 mg PO QAM 09/30/16 [History] Calcium Carbonate [Tums] 1,000 mg PO TID PRN #0 tab.chew 10/12/16 [Rx] PredniSONE 40 mg PO BIDWM #38 tablet 10/12/16 [Rx] Allergies Penicillins Allergy (Severe, Verified 06/30/16 18:09) Anaphylaxis diphenhydramine Allergy (Verified 09/30/16 19:52) See Comments fentanyl Allergy (Verified 09/30/16 19:52) See Comments lidocaine Allergy (Verified 09/30/16 19:52) See Comments midazolam Allergy (Verified 09/30/16 19:52) See Comments venlafaxine [From Effexor] Adverse Reaction (Unknown, Verified 06/30/16 18:09) See Comments "Made me go into a coma." All Systems PM: A 10-system review of systems was performed and is negative for pertinent findings except as documented above in the HPI. - Constitutional Constitutional: no chills, no fever(s), no night sweats - EENT Eyes: no change in vision, no discharge, no pain, no photophobia Ears: no ear discharge, no ear pain, no tinnitus Nose, mouth and throat: no dysphagia, no nasal discharge, no neck pain, no sore throat - Cardiovascular Cardiovascular ROS IM: chest pain, dyspnea, dyspnea on exertion, palpitations, no diaphoresis, no lightheadedness, no syncope - Respiratory Respiratory: cough, pain with cough, no dyspnea, no wheezing, no excessive phlegm production, no change in phlegm color - Gastrointestinal Gastrointestinal: abdominal pain, no diarrhea, no hematemesis, no hematochezia, no melena, no nausea, no vomiting - Musculoskeletal Musculoskeletal ROS IM: no numbness, no tingling - Integumentary Integumentary IM: other (Multiple ecchymosis on both his forearms which are chronic), no rash, no unusual bruising - Neurological Neurological ROS: no confusion, no convulsions, no focal weakness, no numbness, no tingling, no tremor(s) - Psychiatric Psychiatric: depression - Hematologic/Lymphatic Hematologic/Lymphatic: no easy bruising - Constitutional Vitals: Temp Pulse Resp BP Pulse Ox 97.6 F 98 17 128/67 93 L 10/25/16 09:06 10/25/16 09:06 10/25/16 09:06 10/25/16 09:06 10/25/16 09:06 General appearance: Present: cooperative, mild distress, A&O X 3, obese, answers questions appropriately - Eye Eye exam: Present: EOMI, PERRL, conjuntiva pink, sclera anicteric - Neck Neck exam general surgery: Present: supple, trachea midline. Absent: lymphadenopathy - Respiratory Respiratory exam: Present: prolonged expiratory phase, wheezes. Absent: accessory muscle use, rales, rhonchi Additional comments: Decreased air entry bilaterally - Cardiovascular Cardiovascular exam: Present: RRR, +S1, +S2. Absent: diastolic murmur, gallop, rubs, systolic murmur - GI/Abdominal GI/Abdominal exam: Present: normal bowel sounds, soft, no peritoneal signs. Absent: distended, tenderness - Extremities Exam Extremities exam: Present: pedal edema, warm, radial pulses palpable and symetrical. Absent: calf tenderness, cyanotic - Neurological Exam Neurological exam: Present: CN II-XII intact, oriented X3, no focal deficits, strengths equal and symetr throughout. Absent: facial droop, speech deficit - Skin Skin exam: Present: dry, intact Internal Med - H&P Results - Labs CBC & Chem 7: 10/25/16 05:26 10/25/16 05:26 - EKG Data EKG comments: 10/25/16 11:25 Atrial fibrillation with rapid ventricular response - Impressions Impressions Chest X-Ray 10/25/16 04:21 IMPRESSION: No acute disease. D/ / Levi Mendoza MD / Levi Mendoza MD Interpreting Provider: Levi Mendoza MD - Attending Attestation This document has been at least partially created by [employer] voice recognition technology by Dr. Fernandes. Errors in grammar, wording or other phrases may exist. If errors are found after the documentation is signed, they will be addressed individually in the addendum section of this document when appropriate. Medical Decision Making - MDM Narrative Medical decision making narrative: High risk for complications due to uncontrolled A. fib requiring intravenous medications - Lab Data Lab results reviewed: Yes I reviewed the patient's lab results. Result diagrams: 10/25/16 05:26 10/25/16 05:26
[2016-10-25] MEDS ORDERED: Furosemide 40 MG/4 ML VIAL IVP ONE (11:31)
[2016-10-25] MEDS: *HR* Heparin 5,000 UNIT/ML VIAL SQ SCH (17:27)
[2016-10-25] MEDS: Pantoprazole 40 MG VIAL IVP SCH (17:27)
[2016-10-25] MEDS: Mag Hydrox/Al Hydrox/Simeth 30 ML UDC PO PRN (19:47)
[2016-10-25] MEDS ORDERED: Melatonin 3 MG TABLET PO ONE ×2 (20:15→21:00)
[2016-10-25] MEDS: Thiamine (B-1) 100 MG, Folic Acid 1 MG, MVI, adult with vitamin K 10 ML in 0.9 % Sodi... IV SCH (23:39)
[2016-10-25] MEDS: *HR* LORazepam 2 MG/ML VIAL IVP PRN (23:39)
[2016-10-26 02:39] LABS: Basophils % 0.2 %; Eosinophils # 0.2 K/mcL (0.0-0.6); Eosinophils % 1.8 %; Hematocrit 40.2 % (37.5-50.1); Hemoglobin 13.5 g/dL (12.9-16.9); Immature Granulocytes % 1.3 % (0-4); Lymphocytes % 35.5 %; Mean Corpuscular HGB Conc 33.6 g/dL (31.6-35.5); Mean Corpuscular Hemoglobin 33.5 pg (28.0-33.3); Mean Corpuscular Volume 99.8 fL (83.0-100.0); Mean Platelet Volume 9.6 fL (9.4-12.4); Monocytes # 0.5 K/mcL (0.0-1.3); Monocytes % 5.8 %; Neutrophils # 4.6 K/mcL (1.6-8.9); Platelet Count 212 K/mcL (140-400); Red Blood Count 4.03 M/mcL (4.19-5.50); Red Cell Distribution Width 15.2 % (11.5-14.5); Segmented Neutrophils % 55.4 %
[2016-10-26 02:58] LABS: BUN/Creatinine Ratio 32 (6-26); Blood Urea Nitrogen 41 mg/dL (8-26); Calcium 8.6 mg/dL (8.6-10.8); Carbon Dioxide 28 mEq/L (19-29); Chloride 99 mEq/L (98-109); Glucose 133 mg/dL (70-99); Osmolality,Calculated 298 (280-300); Potassium 3.5 mEq/L (3.5-4.5); Sodium 138 mEq/L (136-145); eGFR For African Americans > 60 (> 60); eGFR For Non-African Americans 56 (> 60)
[2016-10-26] MEDS: Mag Hydrox/Al Hydrox/Simeth 30 ML UDC PO PRN ×3 (05:36→20:51)
[2016-10-26] MEDS: *HR* Heparin 5,000 UNIT/ML VIAL SQ SCH ×2 (05:37→18:20)
--- NOTE | 2016-10-26 06:31 | Electrocardiograph Report ---
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
[2016-10-26] MEDS: Pantoprazole 40 MG VIAL IVP SCH ×2 (08:18→18:20)
[2016-10-26] MEDS: Diltiazem CD (24hr) 240 MG CAPSULE PO SCH (08:18)
[2016-10-26] MEDS ORDERED: Furosemide 40 MG TABLET PO SCH (09:00)
--- NOTE | 2016-10-26 11:31 | Internal Med Progress Note ---
Date of Encounter: 10/26/16 Time of Encounter: 09:25 - Assessment and plan (1) Chest pain Current Visit: Yes Status: Acute Assessment and plan: Troponins peaked at 0.06 and are trending down. Will get 2-D echocardiogram. Patient has a history of chronic alcohol abuse, pancreatitis and esophageal reflux disease. These conditions could be contributing to his chest pain. On intravenous Protonix and oral Carafate. Patient at moderate risk for complications. Qualifiers: Chest pain type: precordial pain Qualified Code(s): R07.2 - Precordial pain (2) Chronic respiratory failure Current Visit: Yes Status: Acute Assessment and plan: Continue O2 supplementation at 2 L/m Qualifiers: Respiratory failure complication: hypoxia Qualified Code(s): J96.11 - Chronic respiratory failure with hypoxia (3) COPD (chronic obstructive pulmonary disease) Current Visit: Yes Status: Chronic Assessment and plan: Patient today. We will schedule bronchodilators. Currently saturating well on 2 L nasal cannula which is his home oxygen regimen. I Qualifiers: COPD type: unspecified COPD Qualified Code(s): J44.9 - Chronic obstructive pulmonary disease, unspecified (4) Atrial fibrillation with RVR Current Visit: Yes Status: Resolved Assessment and plan: Rate controlled now. (5) Alcohol dependence Current Visit: Yes Status: Chronic Assessment and plan: On alcohol withdrawal protocol Qualifiers: Substance use status: alcohol-induced anxiety disorder Qualified Code(s): F10.280 - Alcohol dependence with alcohol-induced anxiety disorder (6) Chronic systolic (congestive) heart failure Current Visit: Yes Status: Chronic Assessment and plan: She does not exhibit signs of Acute congestive heart failure. He does have some pedal edema. We will hold Lasix for now as patient's renal function has worsened slightly today. (7) DVT prophylaxis Current Visit: No Status: Acute Assessment and plan: On subcutaneous heparin (8) Seizure disorder Current Visit: No Status: Chronic Assessment and plan: Resumed home medications. Seizure precautions (9) Tobacco abuse Current Visit: No Status: Chronic Assessment and plan: Patient has been counseled about cessation - Subjective Interval history: Patient is feeling better but still having dyspnea. Chest pain improved. No nausea or vomiting. Patient was started on CIWA protocol as he has a history of chronic alcohol abuse. - Constitutional Vitals: Temp Pulse Resp BP Pulse Ox 98.1 F 83 16 113/67 91 L 10/26/16 11:05 10/26/16 11:05 10/26/16 11:05 10/26/16 11:05 10/26/16 11:05 General appearance: Present: cooperative, mild distress, A&O X 3, obese, answers questions appropriately - Respiratory Respiratory exam: Present: prolonged expiratory phase, wheezes. Absent: accessory muscle use, rales, rhonchi - Cardiovascular Cardiovascular exam: Present: RRR, +S1, +S2. Absent: diastolic murmur, gallop, rubs, systolic murmur - Extremities Exam Extremities exam: Present: warm, radial pulses palpable and symetrical. Absent : calf tenderness, cyanotic, pedal edema - Neurological Exam Neurological exam: Present: alert, CN II-XII intact, oriented X3, no focal deficits, strengths equal and symetr throughout. Absent: facial droop, speech deficit - Psychiatric Psychiatric exam: Present: flat affect, normal affect, normal mood - Skin Skin exam: Present: dry, intact Internal Medicine: Result - Labs CBC & Chem 7: 10/26/16 02:29 10/26/16 02:29 Labs: Short CBC 10/26/16 Range/Units 02:29 WBC 8.3 (4.3-11.1) K/mcL Hgb 13.5 (12.9-16.9) g/dL Hct 40.2 (37.5-50.1) % Plt Count 212 (140-400) K/mcL Neutrophils # 4.6 (1.6-8.9) K/mcL BMP 10/26/16 02:29 Sodium 138 Potassium 3.5 Chloride 99 Carbon Dioxide 28 BUN 41 H Creatinine 1.27 H Glucose 133 H Calcium 8.6 Cardiac Enzymes 10/25/16 10/25/16 10/26/16 Range/Units 14:00 22:10 02:29 Troponin I 0.03 0.06 H* 0.04 H* (0-0.03) ng/mL - ABG Interpretation ABG results: PT/INR, D-dimer PT 10.3 Seconds (9.4-12.1) 10/25/16 05:26 Consult Discharge Plan - Plan - Attending Attestation This document has been at least partially created by [employer] recognition technology by Dr. Fernandes. Errors in grammar, wording or other phrases may exist. If errors are found after the documentation is signed, they will be addressed individually in the addendum section of this document when appropriate.
[2016-10-26] MEDS: Sucralfate 1 GM TABLET PO SCH ×4 (11:57→20:50)
[2016-10-26] MEDS: Magnesium Oxide 400 MG TABLET PO SCH ×2 (11:57→20:51)
[2016-10-26] MEDS: Aspirin Enteric Coated 81 MG Tablet PO SCH (11:57)
[2016-10-26] MEDS: Thiamine (B-1) 100 MG TABLET PO SCH (11:57)
[2016-10-26] MEDS: Isosorbide MONOnitrate (24 HR) 30 MG TAB.ER.24H PO SCH (11:57)
[2016-10-26] MEDS: Thiamine (B-1) 100 MG, Folic Acid 1 MG, MVI, adult with vitamin K 10 ML in 0.9 % Sodi... IV SCH (11:58)
[2016-10-26] MEDS: Ipratropium/Albuterol Neb 3 ML IH SCH ×4 (12:19→23:31)
[2016-10-26] MEDS: 0.9 % Sodium Chloride 1,000 ML IVC SCH (12:28)
[2016-10-26] MEDS: *HR* LORazepam 2 MG/ML VIAL IVP PRN ×2 (16:54→20:59)
--- NOTE | 2016-10-26 17:30 | Electrocardiograph Report ---
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
--- NOTE | 2016-10-26 17:31 | Electrocardiograph Report ---
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
[2016-10-26] MEDS ORDERED: Furosemide 20 MG TABLET PO SCH (18:00)
[2016-10-26] MEDS: (Cyanocobalamin (Vitamin B-12) [Vitamin B-12] 100 MCG PO SCH (20:51)
[2016-10-27] MEDS: *HR* LORazepam 2 MG/ML VIAL IVP PRN ×4 (00:36→20:10)
[2016-10-27] MEDS: traMADol 50 MG TABLET PO PRN ×4 (00:36→23:41)
[2016-10-27 04:33] LABS: Basophils % 0.2 %; Eosinophils # 0.1 K/mcL (0.0-0.6); Eosinophils % 2.3 %; Immature Granulocytes % 1.2 % (0-4); Lymphocytes % 34.4 %; Mean Corpuscular HGB Conc 33.3 g/dL (31.6-35.5); Mean Corpuscular Hemoglobin 33.2 pg (28.0-33.3); Mean Corpuscular Volume 99.7 fL (83.0-100.0); Mean Platelet Volume 9.9 fL (9.4-12.4); Monocytes # 0.3 K/mcL (0.0-1.3); Monocytes % 4.7 %; Neutrophils # 3.3 K/mcL (1.6-8.9); Platelet Count 161 K/mcL (140-400); Red Blood Count 3.31 M/mcL (4.19-5.50); Red Cell Distribution Width 15.1 % (11.5-14.5); Segmented Neutrophils % 57.2 %
[2016-10-27] MEDS: Ipratropium/Albuterol Neb 3 ML IH SCH ×6 (04:33→23:17)
[2016-10-27 04:48] LABS: BUN/Creatinine Ratio 37 (6-26); Blood Urea Nitrogen 31 mg/dL (8-26); Calcium 8.4 mg/dL (8.6-10.8); Carbon Dioxide 27 mEq/L (19-29); Chloride 104 mEq/L (98-109); Glucose 100 mg/dL (70-99); Osmolality,Calculated 293 (280-300); Sodium 138 mEq/L (136-145); eGFR For African Americans > 60 (> 60); eGFR For Non-African Americans > 60 (> 60)
[2016-10-27] MEDS: Pantoprazole 40 MG VIAL IVP SCH ×2 (05:54→17:37)
[2016-10-27] MEDS: 0.9 % Sodium Chloride 1,000 ML IVC SCH (05:54)
[2016-10-27] MEDS: Mag Hydrox/Al Hydrox/Simeth 30 ML UDC PO PRN ×2 (05:54→20:17)
[2016-10-27] MEDS: *HR* Heparin 5,000 UNIT/ML VIAL SQ SCH ×2 (05:54→17:37)
[2016-10-27] MEDS: Diltiazem CD (24hr) 240 MG CAPSULE PO SCH (08:17)
[2016-10-27] MEDS: Aspirin Enteric Coated 81 MG Tablet PO SCH (08:18)
[2016-10-27] MEDS: Isosorbide MONOnitrate (24 HR) 30 MG TAB.ER.24H PO SCH (08:18)
[2016-10-27] MEDS: Sucralfate 1 GM TABLET PO SCH ×4 (08:18→20:08)
[2016-10-27] MEDS: Thiamine (B-1) 100 MG TABLET PO SCH (08:18)
[2016-10-27] MEDS: Magnesium Oxide 400 MG TABLET PO SCH ×2 (08:18→20:10)
[2016-10-27] MEDS: Thiamine (B-1) 100 MG, Folic Acid 1 MG, MVI, adult with vitamin K 10 ML in 0.9 % Sodi... IV SCH (08:31)
--- NOTE | 2016-10-27 09:35 | ECHO - Doppler Report ---
Echocardiogram Name: Tuan Salmon Date of Study: 10/26/2016 Date: 1945 Ht: 68.0 in Medical Record#: [id number] Age: 71 Wt: 229.0 lb Gender: Male BSA: 2.16 Order #: [id number] Location: [facility] Room #: 3B52 Reading Physician: Jes Watkins DO Coppersmith Helper: Alice Agustin Ordering Physician: Marci Fernandes MD Primary Physician: [facility] Indications: Elevated troponin, Chest discomfort Impressions: Suboptimal image quality. Unable to determine LVEF on this study. Recommend repeat Limited study with Definity. RV is seen and demonstrates normal size and function. No significant valve dysfunction. No evidence for pulmonary hypertension. Left Ventricular Wall Motion: Rest Echo Findings The apex, apical inferior, mid inferior, basal inferior, apical anterior, mid anterior, basal anterior, apical lateral, mid anterior lateral, basal anterior lateral, mid inferior lateral and basal inferior lateral pope were not visualized. All other wall segments showed normal motion. Findings: Study Quality * Technically sub-optimal due to body habitus. ECG Findings * Normal sinus rhythm with frequent ectopy. Aortic Valve * No aortic regurgitation. * Aortic valve not well visualized. * No aortic stenosis. Mitral Valve * No mitral regurgitation. * Normal mitral valve structure. * No mitral stenosis. Tricuspid Valve * Tricuspid valve not well visualized. * No tricuspid regurgitation. * Estimated RA pressure is 3 mmHg. * Estimated RVSP is 23 mmHg. * No pulmonary hypertension. Pulmonic Valve * Pulmonic valve is not well visualized. * No pulmonic stenosis. * No pulmonic regurgitation. Pulmonary Artery * Pulmonary artery not well visualized. Right Ventricle * Normal right ventricular structure and function. Left Atrium * Normal left atrial size. Right Atrium * Normal right atrial size. Left Ventricle * Mild left ventricular diastolic dysfunction. * Unable to evaluate segmental wall motion due to technical quality. * Unable to determine LVEF. Interatrial Septum * No evidence of PFO by color Doppler. IVC * Normal IVC dimensions and inspiratory collapse. Pericardium * There is no pericardial effusion present. Aorta * Normally sized aortic root. History Hypertension Hypercholesteremia History of Smoking Years 50 Packs 0.5 Family History of CAD History of CAD/PTCA Congestive Heart Failure 04/16/2015 a Previous Echo was performed. Measurements: BP: 113/ 67 2D Normal Values IVSd: 1.10 cm 0.6 - 1.0 cm LVIDd: 3.70 cm 3.7 - 5.6 cm LVPWd: 1.10 cm 0.6 - 1.1 cm LVIDs: 2.70 cm 1.5 - 3.6 cm AO: 2.70 cm < 4.0 cm LA: 4.00 cm 2.0 - 4.0cm %FS: 27.00 cm >25 % LA volume: 42 Mitral Valve Peak E:.68 m/sec Peak A:.84 m/sec E/A Ratio:0.8 Peak E' Lat Kenny:6.82 cm/s Peak E' Med Kenny:6.34 cm/s E/E' Lat Ratio:9.9 E/E' Med Ratio:10.7 Tricuspid Valve TV Regurg Peak Grad: 20.00mmHg TV Regurg Peak Kenny: 2.21m/sec Updated by Jes Watkins on 10/27/2016 9:30:25 AM electronically signed on 10/27/2016 9:31:08 AM with status of Final Wall Motion Peña: 1=Normal, 2=Hypokinesis, 3=Akinesis, 4=Dyskinesis, 5=Aneurysmal, 6=Hyperkinetic, X=Not Visualized (Blank)=Missing
--- NOTE | 2016-10-27 20:19 | Internal Med Progress Note ---
Date of Encounter: 10/27/16 Time of Encounter: 20:16 - Assessment and plan (1) Acute and chronic respiratory failure Current Visit: Yes Status: Acute Qualifiers: Respiratory failure complication: hypoxia Qualified Code(s): J96.21 - Acute and chronic respiratory failure with hypoxia (2) Atrial fibrillation with RVR Current Visit: Yes Status: Resolved (3) COPD exacerbation Current Visit: No Status: Acute (4) ETOH abuse Current Visit: No Status: Chronic Assessment and plan: diminshed lung sounds, will add steroids and nebs. will add abx. limited echo with difinity to eval LVEF per cardio recommendations. monitor electrolytes start fluid restrictions. continue diltiazem. - Subjective Interval history: Patient evaluated, seen sitting in the chair, complains of chest congestion and shortness of breath, does not want to be sent home early before feeling better llike was done twice previously he says. - Constitutional Vitals: Temp Pulse Resp BP Pulse Ox 97.7 F 89 16 121/76 96 10/27/16 14:50 10/27/16 14:50 10/27/16 14:50 10/27/16 14:50 10/27/16 14:50 General appearance: Present: cooperative, mild distress, A&O X 3, obese, answers questions appropriately - Head Head exam: Present: atraumatic, normocephalic - Eye Eye exam: Present: PERRL, conjuntiva pink, sclera anicteric Pupils: Present: PERRL - Neck Neck exam general surgery: Present: supple, trachea midline. Absent: lymphadenopathy - Respiratory Respiratory exam: Present: decreased breath sounds, rhonchi, wheezes. Absent: accessory muscle use, rales - Cardiovascular Cardiovascular exam: Present: RRR, +S1, +S2. Absent: diastolic murmur, gallop, rubs, systolic murmur - GI/Abdominal GI/Abdominal exam: Present: normal bowel sounds, soft, no peritoneal signs. Absent: distended, tenderness - Extremities Exam Extremities exam: Present: warm, radial pulses palpable and symetrical. Absent : calf tenderness, cyanotic, pedal edema - Neurological Exam Neurological exam: Present: CN II-XII intact, oriented X3, no focal deficits. Absent: pronater drift, facial droop, speech deficit - Skin Skin exam: Present: dry, intact Internal Medicine: Result - Labs CBC & Chem 7: 10/27/16 04:00 10/27/16 04:00 Labs: Short CBC 10/27/16 Range/Units 04:00 WBC 5.7 (4.3-11.1) K/mcL Hgb 11.0 L D (12.9-16.9) g/dL Hct 33.0 L (37.5-50.1) % Plt Count 161 (140-400) K/mcL Neutrophils # 3.3 (1.6-8.9) K/mcL BMP 10/27/16 04:00 Sodium 138 Potassium 4.0 Chloride 104 Carbon Dioxide 27 BUN 31 H D Creatinine 0.83 Glucose 100 H Calcium 8.4 L - ABG Interpretation ABG results: PT/INR, D-dimer PT 10.3 Seconds (9.4-12.1) 10/25/16 05:26 Consult Discharge Plan - Plan [facility]errals: [facility]Primary Care Provider[facility] -
[2016-10-27] MEDS: (Cyanocobalamin (Vitamin B-12) [Vitamin B-12] 100 MCG PO SCH (23:12)
[2016-10-27] MEDS: MethylPREDNISolone 40 MG/ML VIAL IVP SCH (23:41)
[2016-10-28] MEDS ORDERED: Water for inj. (sterile) 10 ML IV ONE (00:52)
[2016-10-28] MEDS: *HR* LORazepam 2 MG/ML VIAL IVP PRN ×2 (00:54→10:28)
[2016-10-28] MEDS: Ipratropium/Albuterol Neb 3 ML IH SCH ×3 (04:13→11:32)
[2016-10-28 04:34] LABS: Basophils % 0.2 %; Eosinophils # 0.1 K/mcL (0.0-0.6); Eosinophils % 0.9 %; Hematocrit 35.1 % (37.5-50.1); Hemoglobin 11.6 g/dL (12.9-16.9); Immature Granulocytes % 1.7 % (0-4); Lymphocytes # 0.5 K/mcL (0.6-4.6); Lymphocytes % 9.1 %; Mean Corpuscular Hemoglobin 33.2 pg (28.0-33.3); Mean Corpuscular Volume 100.6 fL (83.0-100.0); Mean Platelet Volume 10.1 fL (9.4-12.4); Monocytes # 0.1 K/mcL (0.0-1.3); Monocytes % 2.2 %; Neutrophils # 4.6 K/mcL (1.6-8.9); Platelet Count 152 K/mcL (140-400); Red Blood Count 3.49 M/mcL (4.19-5.50); Red Cell Distribution Width 15.2 % (11.5-14.5); Segmented Neutrophils % 85.9 %
[2016-10-28 04:47] LABS: BUN/Creatinine Ratio 27 (6-26); Blood Urea Nitrogen 21 mg/dL (8-26); Calcium 8.9 mg/dL (8.6-10.8); Carbon Dioxide 25 mEq/L (19-29); Chloride 104 mEq/L (98-109); Glucose 146 mg/dL (70-99); Osmolality,Calculated 294 (280-300); Potassium 4.8 mEq/L (3.5-4.5); Sodium 139 mEq/L (136-145); eGFR For African Americans > 60 (> 60); eGFR For Non-African Americans > 60 (> 60)
[2016-10-28] MEDS: Pantoprazole 40 MG VIAL IVP SCH (05:50)
[2016-10-28] MEDS: MethylPREDNISolone 40 MG/ML VIAL IVP SCH ×2 (05:51→13:42)
[2016-10-28] MEDS: *HR* Heparin 5,000 UNIT/ML VIAL SQ SCH (05:51)
[2016-10-28] MEDS: Thiamine (B-1) 100 MG TABLET PO SCH (08:35)
[2016-10-28] MEDS: Aspirin Enteric Coated 81 MG Tablet PO SCH (08:35)
[2016-10-28] MEDS: Magnesium Oxide 400 MG TABLET PO SCH (08:35)
[2016-10-28] MEDS: Sucralfate 1 GM TABLET PO SCH ×2 (08:36→13:42)
[2016-10-28] MEDS: Diltiazem CD (24hr) 240 MG CAPSULE PO SCH (08:36)
[2016-10-28] MEDS: Isosorbide MONOnitrate (24 HR) 30 MG TAB.ER.24H PO SCH (08:36)
[2016-10-28] MEDS ORDERED: Levofloxacin 500 MG/100 ML 500 MG/100 ML BAG IVPB SCH (09:00)
[2016-10-28] MEDS ORDERED: Perflutren Lipid Microsphere 1.3 ML in 0.9 % Sodium Chloride 8.7 ML IVP ONE (10:19)
[2016-10-28 15:25] VITALS: BP 148/83
--- NOTE | 2016-10-28 15:52 | Discharge Summary ---
Date of Encounter: 10/28/16 Time of Encounter: 15:07 - Discharge Diagnosis (1) Acute and chronic respiratory failure Priority: Primary Status: Acute Qualifiers: Respiratory failure complication: hypoxia Qualified Code(s): J96.21 - Acute and chronic respiratory failure with hypoxia (2) Atrial fibrillation with RVR Priority: Secondary Status: Resolved (3) COPD exacerbation Priority: Primary Status: Acute (4) ETOH abuse Priority: Primary Status: Chronic - Discharge Medications Prescriptions: Ipratropium/Albuterol Neb [Duoneb] 3 ml IH Q6HR #40 each GuaiFENesin ER [Mucinex] 600 mg PO BID #14 tbbp.12hr Home Medications: Albuterol Sulfate [Albuterol Inhaler] 2 puff IH QID PRN 05/07/15 [History] Folic Acid 1 mg PO DAILY 05/07/15 [History] Isosorbide MONOnitrate [Isosorbide Mononitrate ER] 30 mg PO DAILY 05/07/15 [ History] Omeprazole [PriLOSEC] 20 mg PO BID 05/07/15 [History] Thiamine HCl [Vitamin B-1] 100 mg PO DAILY 05/07/15 [History] Clopidogrel [Plavix] 75 mg PO DAILY #14 tablet 06/25/15 [Rx] Magnesium Oxide [Mag-Ox] 400 mg PO BID #0 tablet 09/02/15 [Rx] Albuterol Neb [Proventil Neb] 2.5 mg IH Q6H PRN 04/24/16 [History] Sucralfate [Carafate] 1 gm PO QID 04/24/16 [History] Potassium Chloride 20 meq PO DAILY 30 Days 04/28/16 [Rx] Mometasone Furoate [Asmanex] 220 mcg IH DAILY 06/30/16 [History] Phenytoin ER [Dilantin ER] 200 mg PO QAM 06/30/16 [History] Aspirin [Lo-Dose Aspirin EC] 81 mg PO DAILY 09/30/16 [History] Buspirone HCl [Buspar] 7.5 mg PO BID PRN 09/30/16 [History] Cyanocobalamin (Vitamin B-12) [Vitamin B-12] 100 mcg PO HS 09/30/16 [History] Diltiazem HCl [Diltiazem 24Hr Cd] 240 mg PO DAILY 09/30/16 [History] Ferrous Gluconate 324 mg PO DAILY 09/30/16 [History] Furosemide [Lasix] 20 mg PO QPM 09/30/16 [History] Furosemide [Lasix] 40 mg PO QAM 09/30/16 [History] Melatonin 9 mg PO HS PRN 09/30/16 [History] Multivitamin with Minerals [Myvitalife] 1 each PO DAILY 09/30/16 [History] Olodaterol HCl [Striverdi Respimat] 2 puff IH DAILY 09/30/16 [History] Prazosin [Minipress] 3 mg PO HS 09/30/16 [History] Sertraline [Zoloft] 50 mg PO QAM 09/30/16 [History] Calcium Carbonate [Tums] 1,000 mg PO TID PRN #0 tab.chew 10/12/16 [Rx] GuaiFENesin ER [Mucinex] 600 mg PO BID #14 tbbp.12hr 10/28/16 [Rx] Ipratropium/Albuterol Neb [Duoneb] 3 ml IH Q6HR #40 each 10/28/16 [Rx] Levofloxacin [Levaquin] 500 mg PO DAILY #7 tablet 10/28/16 [Rx] PredniSONE 10 mg PO DAILY #30 tablet 10/28/16 [Rx] Tiotropium [Spiriva] 18 mcg IH DAILY #30 capsule 10/28/16 [Rx] Allergies/Adverse Reactions: Allergies Penicillins Allergy (Severe, Verified 06/30/16 18:09) Anaphylaxis diphenhydramine Allergy (Verified 09/30/16 19:52) See Comments fentanyl Allergy (Verified 09/30/16 19:52) See Comments lidocaine Allergy (Verified 09/30/16 19:52) See Comments midazolam Allergy (Verified 09/30/16 19:52) See Comments venlafaxine [From Effexor] Adverse Reaction (Unknown, Verified 06/30/16 18:09) See Comments "Made me go into a coma." Procedures/tests Complete & Pending: Procedures Performed prior 72 hours Category Date Time Status EV echocardiogram Routine Y 10/26/16 07:48 Completed EV limited echo w enhance Routine Y 10/28/16 20:20 Completed Date of admission: 10/25/16 08:13 [facility] physician: [facility] Consults: 10/25/16 10:27 Consult to Chief Analytics Officer [CONS] Routine Reason for SW Consult: Discharge planning 10/25/16 10:28 Consult to Occupational Therapy [CONS] Routine Comment: Evaluate, develop and implement POC Consult to Physical Therapy [CONS] Routine Comment: Evaluate, develop and implement POC 10/26/16 10:40 Consult to Invasive Line Access Team [CONS] Routine Reason for Consult: no iv access Line Type: EPIV - Patient Status Disposition: Home Health Service Condition: Good Overall status at discharge: patient is progressing back to baseline - Discharge Instructions Follow Up With: [facility] [Primary Care Provider] - Forms: ED Satisfaction Letter - Diet and Activity Activity: increase activity as tolerated Diet: advance to your usual diet Hospital course: Mr. Salmon is a 71 year old male who presented with shortness of breath and found to have copd exacerbation. He was treated with steroids, nebs and abx with improvement. He will be discharged to home in stable condition. - Time Spent with Patient Total time spent providing and/or coordinating discharge services: - Constitutional Vitals: Temp Pulse Resp BP Pulse Ox 97.2 F L 95 16 141/93 96 10/28/16 11:23 10/28/16 11:23 10/28/16 11:32 10/28/16 11:23 10/28/16 11:32 General appearance: Present: cooperative, mild distress, A&O X 3, obese, answers questions appropriately - Head Head exam: Present: atraumatic, normocephalic - Eye Eye exam: Present: PERRL, conjuntiva pink, sclera anicteric Pupils: Present: PERRL - Neck Neck exam general surgery: Present: supple, trachea midline. Absent: lymphadenopathy - Respiratory Respiratory exam: Present: decreased breath sounds. Absent: accessory muscle use, rales, rhonchi, wheezes - Cardiovascular Cardiovascular exam: Present: RRR, +S1, +S2. Absent: diastolic murmur, gallop, rubs, systolic murmur - GI/Abdominal GI/Abdominal exam: Present: normal bowel sounds, soft, no peritoneal signs. Absent: distended, tenderness - Extremities Exam Extremities exam: Present: warm, radial pulses palpable and symetrical. Absent : calf tenderness, cyanotic, pedal edema - Neurological Exam Neurological exam: Present: CN II-XII intact, oriented X3, no focal deficits. Absent: pronater drift, facial droop, speech deficit - Skin Skin exam: Present: dry, intact
--- NOTE | 2016-10-28 17:01 | Physician Discharge Referral ---
Home Health/Hosp Referral Info Transfer to: Home Health - Diagnosis (1) Acute and chronic respiratory failure Status: Acute (2) Atrial fibrillation with RVR Status: Resolved (3) COPD exacerbation Status: Acute (4) ETOH abuse Status: Chronic - Respiratory Orders Smoking Cessation: Smoking cessation has been advised. For more information, call the [place] Tobacco Quit Line at 5-499-WEMZ-NOW. - Transfer Medications Prescriptions: Ipratropium/Albuterol Neb [Duoneb] 3 ml IH Q6HR #40 each GuaiFENesin ER [Mucinex] 600 mg PO BID #14 tbbp.12hr Levofloxacin [Levaquin] 500 mg PO DAILY #7 tablet PredniSONE 10 mg PO DAILY #30 tablet Tiotropium [Spiriva] 18 mcg IH DAILY #30 capsule Home Medications: Albuterol Sulfate [Albuterol Inhaler] 2 puff IH QID PRN 05/07/15 [History] Folic Acid 1 mg PO DAILY 05/07/15 [History] Isosorbide MONOnitrate [Isosorbide Mononitrate ER] 30 mg PO DAILY 05/07/15 [ History] Omeprazole [PriLOSEC] 20 mg PO BID 05/07/15 [History] Thiamine HCl [Vitamin B-1] 100 mg PO DAILY 05/07/15 [History] Clopidogrel [Plavix] 75 mg PO DAILY #14 tablet 06/25/15 [Rx] Magnesium Oxide [Mag-Ox] 400 mg PO BID #0 tablet 09/02/15 [Rx] Albuterol Neb [Proventil Neb] 2.5 mg IH Q6H PRN 04/24/16 [History] Sucralfate [Carafate] 1 gm PO QID 04/24/16 [History] Potassium Chloride 20 meq PO DAILY 30 Days 04/28/16 [Rx] Mometasone Furoate [Asmanex] 220 mcg IH DAILY 06/30/16 [History] Phenytoin ER [Dilantin ER] 200 mg PO QAM 06/30/16 [History] Aspirin [Lo-Dose Aspirin EC] 81 mg PO DAILY 09/30/16 [History] Buspirone HCl [Buspar] 7.5 mg PO BID PRN 09/30/16 [History] Cyanocobalamin (Vitamin B-12) [Vitamin B-12] 100 mcg PO HS 09/30/16 [History] Diltiazem HCl [Diltiazem 24Hr Cd] 240 mg PO DAILY 09/30/16 [History] Ferrous Gluconate 324 mg PO DAILY 09/30/16 [History] Furosemide [Lasix] 20 mg PO QPM 09/30/16 [History] Furosemide [Lasix] 40 mg PO QAM 09/30/16 [History] Melatonin 9 mg PO HS PRN 09/30/16 [History] Multivitamin with Minerals [Myvitalife] 1 each PO DAILY 09/30/16 [History] Olodaterol HCl [Striverdi Respimat] 2 puff IH DAILY 09/30/16 [History] Prazosin [Minipress] 3 mg PO HS 09/30/16 [History] Sertraline [Zoloft] 50 mg PO QAM 09/30/16 [History] Calcium Carbonate [Tums] 1,000 mg PO TID PRN #0 tab.chew 10/12/16 [Rx] GuaiFENesin ER [Mucinex] 600 mg PO BID #14 tbbp.12hr 10/28/16 [Rx] Ipratropium/Albuterol Neb [Duoneb] 3 ml IH Q6HR #40 each 10/28/16 [Rx] Levofloxacin [Levaquin] 500 mg PO DAILY #7 tablet 10/28/16 [Rx] PredniSONE 10 mg PO DAILY #30 tablet 10/28/16 [Rx] Tiotropium [Spiriva] 18 mcg IH DAILY #30 capsule 10/28/16 [Rx] Allergies/Adverse Reactions: Allergies Penicillins Allergy (Severe, Verified 06/30/16 18:09) Anaphylaxis diphenhydramine Allergy (Verified 09/30/16 19:52) See Comments fentanyl Allergy (Verified 09/30/16 19:52) See Comments lidocaine Allergy (Verified 09/30/16 19:52) See Comments midazolam Allergy (Verified 09/30/16 19:52) See Comments venlafaxine [From Effexor] Adverse Reaction (Unknown, Verified 06/30/16 18:09) See Comments "Made me go into a coma." Certification: Further, I certify that my clinical findings support that this patient is homebound (i.e. absences from home require considerable and taxing effort and are for medical reasons or baptist services or infrequently or short duration when for other reasons) because: Homebound Reason: Leaving home requires considerable and taxing effort due to condition Attestation: My signature below is to certify that this patient is under my care and that I, or nurse practitioner, or a physician's assistant news director working with me, has a face-to -face encounter with this patient.
== END 2016-10-28 16:37 | disposition home health service (06) ==
LOC: 3BNU 03:53 → EMEROO 03:53 → SUATTDRO 08:13 → 3BNU 08:55
PROVIDERS: ADMIT Internal Medicine; ATTEND Family Medicine

== ENCOUNTER 2017-01-06 20:49 | Inpatient (IN) ==
--- NOTE | 2017-01-06 21:03 | Emergency Department Note ---
Disposition Clinical Impression: Chest pain Qualifiers: Chest pain type: unspecified Qualified Code(s): R07.9 - Chest pain, unspecified Disposition: Admitted As Inpatient Condition: Undetermined Time of Disposition: 00:14 Syncope HPI - General Chief Complaint: ED Syncope Stated Complaint: syncope with laceration to left eyebrow Time Seen by Provider: 01/06/17 21:00 Source: patient Mode of arrival: ambulatory Limitations: no limitations Nursing Notes Reviewed: Yes Vital Signs Reviewed: Yes - History of Present Illness HPI Narrative: 71-year-old male with history of CHF arrives to [facility] emergency department complaining of a syncopal episode after having a coughing fit. The patient states that he has had an increase in his O2 demand with desaturations in the 80s due to CHF. He was recently placed back on prednisone due to this. The patient states he was feeling a little better but then had a coughing fit. The patient stated he had a syncopal episode where he struck his face. No LOC noted the time. The patient does have a laceration above his left brow. Patient denies any complaints at this time other than the pain is suture the laceration. He states that he has had increase in weight over the past 2-3 weeks. He does attribute this to his CHF. The patient does admit on further questioning that he has had some intermittent chest pain over the past 24-48 hours. Patient does admit to drinking one alcoholic beverage prior to this syncopal episode this evening. Pt Subjective Complaint: other (coughing episode) Onset (ago): Just [employer] Prodromal Symptoms: none Context: at rest Injuries Sustained Associated with Event: other Current Symptoms: none History: history of CAD Treatments prior to arrival: none Associated trauma secondary to event: Yes - Related Data Home Medications Medication Instructions Recorded Confirmed Albuterol Sulfate [Albuterol 2 puff IH Q4-6H PRN 05/07/15 01/06/17 Inhaler] Folic Acid 1 mg PO DAILY 05/07/15 01/06/17 Isosorbide MONOnitrate [Isosorbide 30 mg PO DAILY 05/07/15 01/06/17 Mononitrate ER] Omeprazole [PriLOSEC] 20 mg PO BID 05/07/15 01/06/17 Thiamine HCl [Vitamin B-1] 100 mg PO DAILY 05/07/15 01/06/17 Albuterol Neb [Proventil Neb] 2.5 mg IH Q4H PRN 04/24/16 01/06/17 Sucralfate [Carafate] 1 gm PO QID 04/24/16 01/06/17 Mometasone Furoate [Asmanex] 2 puff IH BID 06/30/16 01/06/17 Phenytoin ER [Dilantin ER] 200 mg PO QAM 06/30/16 01/06/17 Aspirin [Lo-Dose Aspirin EC] 81 mg PO DAILY 09/30/16 01/06/17 Buspirone HCl [Buspar] 2.5 mg PO DAILY 09/30/16 01/06/17 Cyanocobalamin (Vitamin B-12) 100 mcg PO HS 09/30/16 01/06/17 [Vitamin B-12] Diltiazem HCl [Diltiazem 24Hr Cd] 240 mg PO DAILY 09/30/16 01/06/17 Ferrous Gluconate 324 mg PO DAILY 09/30/16 01/06/17 Furosemide [Lasix] 40 mg PO AD 09/30/16 01/06/17 Melatonin 6 mg PO HS 09/30/16 01/06/17 Olodaterol HCl [Striverdi Respimat] 2 puff IH DAILY 09/30/16 01/06/17 Sertraline [Zoloft] 50 mg PO QAM 09/30/16 01/06/17 Azithromycin [Zithromax] 250 mg PO DAILY 01/06/17 01/06/17 Baclofen [Lioresal] 10 mg PO Q6H PRN 01/06/17 01/06/17 Chlorhexidine Gluconate [Peridex] 15 ml MM BID 01/06/17 01/06/17 Fluticasone Propionate Nasal 50 mcg NS BID 01/06/17 01/06/17 [Flonase] HydrOXYzine 10 mg PO Q6H PRN 01/06/17 01/06/17 Ibuprofen [Motrin] 400 mg PO Q6H PRN 01/06/17 01/06/17 Ipratropium/Albuterol Neb [Duoneb] 3 ml IH Q4H 01/06/17 01/06/17 Lisinopril [Zestril] 2.5 mg PO DAILY 01/06/17 01/06/17 Lisinopril [Zestril] 5 mg PO DAILY 01/06/17 01/06/17 Loratadine [Claritin] 10 mg PO DAILY 01/06/17 01/06/17 Magnesium Oxide [Mag-Ox] 400 mg PO TID 01/06/17 01/06/17 Oxygen 2 l NS AD 01/06/17 01/06/17 PredniSONE 40 mg PO DAILY 01/06/17 01/06/17 TraZODone 25 mg PO HS 01/06/17 01/06/17 Previous Rx's Medication Instructions Recorded Potassium Chloride 20 meq PO DAILY 30 Days 04/28/16 Allergies Allergy/AdvReac Type Severity Reaction Status Date / Time Penicillins Allergy Severe Anaphylaxis Verified 01/06/17 20:52 diphenhydramine Allergy See Verified 01/06/17 20:52 Comments fentanyl Allergy See Verified 01/06/17 20:52 Comments lidocaine Allergy See Verified 01/06/17 20:52 Comments midazolam Allergy See Verified 01/06/17 20:52 Comments venlafaxine [From Effexor] AdvReac Unknown See Verified 01/06/17 20:52 Comments Review of Systems: Review of Systems Constitutional: Denies fevers, chills, night sweats HEENT: Denies headache, blurry vision, eye pain, tinnitus, vertigo, sore throat , neck or thyroid masses Respiratory: Admits to cough, denies sputum change, hemoptysis, admits to intermittent dyspnea Cardiac: Admits to chest pain, denies pressure, palpitations, dyspnea on exertion, pedal edema Gastrointestinal: Denies abdominal pain, changes in bowel habits, vomiting, nausea, hematemesis, hematochezia Genitourinary: Denies dysuria, hematuria, nocturia, change in frequency, urgency, incontinence Neurologic: Denies headaches, dizziness, admits to syncope, denies focalized weakness, paraesthesias, weakness Musculoskeletal: Denies back pain, joint pain, myalgias All systems ED: reviewed and negative except as stated. Past Medical History - Past Medical History Attestation: Yes The following information was validated with the patient. Source: patient Medical history: Reports: asthma, atrial fibrillation, cirrhosis, COPD, coronary artery disease, GI bleed, liver disease, seizures, other Surgical history: Reports: angioplasty/stent Psychiatric history: Reports: depression, panic disorder, PTSD - Social History Smoking Status: Current some day smoker Smokeless Tobacco Status: No Alcohol use: Reports: heavy Drug use: Reports: none Physical Exam Physical Exam: General: Patient alert, no acute distress, not lethargic HEENT: Head normal inspection, 1.5-2 cm laceration over left eyebrow, PERRLA, oropharynx grossly intact and normal, trachea midline, no JVD Chest: Nontraumatic, nontender, normal chest rise CV: RRR with no murmurs, rubs, gallops, trace pitting edema in bilateral lower extremities. Respiratory: Lungs clear to auscultation bilaterally, no rales, rhonchi, wheezes. Abdomen: Normal inspection, Normal bowel sounds 4 quadrants, nontender to palpation : Patient deferred Extremities: Normal inspection, full range of motion, appropriate pulses, capillary refill under 2 seconds Neurological: Patient alert and oriented 3, cranial nerves II through XII grossly intact, GCS 15 Skin: Warm, intact, no rashes noted Course Vital Signs Temperature 98.7 F 01/06/17 20:56 Pulse Rate 87 01/06/17 20:56 Respiratory Rate 16 01/06/17 20:56 Blood Pressure 122/72 01/06/17 20:56 O2 Sat by Pulse Oximetry 96 01/06/17 20:56 Temperature 98.4 F 01/07/17 01:15 Pulse Rate 84 01/07/17 01:15 Respiratory Rate 19 01/07/17 01:15 Blood Pressure 133/81 01/07/17 01:15 O2 Sat by Pulse Oximetry 96 01/07/17 01:15 Oxygen Delivery Oxygen Delivery Nasal Cannula Procedures - Laceration Laceration 1 Site: face Side (If applicable): left Size (cm): 1.5 Description: linear Depth: simple, single layer Local Anesthetic: lidocaine 1%, with epi Amount of Anesthesia Used (mL): 1 Pre-repair: wound explored, irrigated extensively Skin layer closed with: nylon Size: 4-0 Number of sutures/familia: 5 Technique: simple, interrupted Syncope - MDM Narrative Medical decision making narrative: Patient appears to have bilateral atelectasis in the lower lobes. Patient did have some episodes of chest pain the past 24-48 hours. The patient states that it is gone at this time. The patient has had progressively worsening dyspnea and bilateral lower extremity swelling along with abdominal swelling. The patient had this coughing episode which did lead to the patient syncopized and falling on his face. Imaging is negative with the exception of his chest x-ray which demonstrates this atelectasis. The patient did take 160 mg of Lasix by mouth prior to arrival to the emergency department. When attempting to administer a small amount of nitroglycerin for the patient's symptoms, the patient's systolic blood pressure was 109. We will hold at this time. The patient does state after receiving a an albuterol nebulizer he is feeling better. The patient denies any chest pain at this time. We discussed about likely admitting the patient to the hospital for further workup which he agrees to. Patient accepted by Dr. Moses. - Medical Records Medical records reviewed: Yes I reviewed the patient's medical records. - Lab Data Lab results reviewed: Yes I reviewed the patient's lab results. Result diagrams: 01/06/17 22:04 01/06/17 22:04 Lab Results 01/06/17 01/06/17 01/06/17 Range/Units 22:04 22:04 22:04 WBC 12.0 H D (4.3-11.1) K/mcL RBC 3.90 L (4.19-5.50) M/mcL Hgb 12.9 (12.9-16.9) g/dL Hct 38.8 (37.5-50.1) % MCV 99.5 (83.0-100.0) fL MCH 33.1 (28.0-33.3) pg MCHC 33.2 (31.6-35.5) g/dL RDW 12.6 (11.5-14.5) % Plt Count 245 (140-400) K/mcL MPV 9.6 (9.4-12.4) fL Immature Gran % 0.3 (0-4) % Seg Neutrophils % 74.6 % Lymphocytes % 18.3 % Monocytes % 5.9 % Eosinophils % 0.7 % Basophils % 0.2 % Neutrophils # 9.0 H (1.6-8.9) K/mcL Lymphocytes # 2.2 (0.6-4.6) K/mcL Monocytes # 0.7 (0.0-1.3) K/mcL Eosinophils # 0.1 (0.0-0.6) K/mcL Basophils # 0.0 (0.0-0.2) K/mcL Sodium 141 (136-145) mEq/L Potassium 3.4 L (3.5-4.5) mEq/L Chloride 106 (98-109) mEq/L Carbon Dioxide 21 (19-29) mEq/L BUN 18 (8-26) mg/dL Creatinine 0.93 (0.72-1.25) mg/dL Est GFR ( Amer) > 60 (> 60) Est GFR (Non-Af Amer) > 60 (> 60) BUN/Creatinine Ratio 19 (6-26) Glucose 97 (70-99) mg/dL Calculated Osmolality 294 (280-300) Calcium 9.1 (8.6-10.8) mg/dL Troponin I 0.00 (0-0.03) ng/mL Ethyl Alcohol (0-10) mg/dL 01/06/17 Range/Units 22:04 WBC (4.3-11.1) K/mcL RBC (4.19-5.50) M/mcL Hgb (12.9-16.9) g/dL Hct (37.5-50.1) % MCV (83.0-100.0) fL MCH (28.0-33.3) pg MCHC (31.6-35.5) g/dL RDW (11.5-14.5) % Plt Count (140-400) K/mcL MPV (9.4-12.4) fL Immature Gran % (0-4) % Seg Neutrophils % % Lymphocytes % % Monocytes % % Eosinophils % % Basophils % % Neutrophils # (1.6-8.9) K/mcL Lymphocytes # (0.6-4.6) K/mcL Monocytes # (0.0-1.3) K/mcL Eosinophils # (0.0-0.6) K/mcL Basophils # (0.0-0.2) K/mcL Sodium (136-145) mEq/L Potassium (3.5-4.5) mEq/L Chloride (98-109) mEq/L Carbon Dioxide (19-29) mEq/L BUN (8-26) mg/dL Creatinine (0.72-1.25) mg/dL Est GFR ( Amer) (> 60) Est GFR (Non-Af Amer) (> 60) BUN/Creatinine Ratio (6-26) Glucose (70-99) mg/dL Calculated Osmolality (280-300) Calcium (8.6-10.8) mg/dL Troponin I (0-0.03) ng/mL Ethyl Alcohol 50 H (0-10) mg/dL - Radiology Data Radiology results reviewed: Yes I reviewed the patient's radiology results. - EKG Data EKG attestation: Yes I reviewed and interpreted this EKG. EKG results narrative: Heart rate 88 bpm. AK interval 149 ms. QTc 433 ms. Normal axis. Normal sinus rhythm. No ST elevation or ST depression noted. Nonspecific ST changes noted from 10/25/2016. Attestation Statement - Attestation Attestation: Dr Kapoor note: Pt seen in conjunction w/ Resident Dr Casanova; Please see his charting for complete documentation; I agree w/ pt's treatment and disposition and spent face to face time w/ the pt; patient had a syncopal episode today during cough. Chest x-ray has been reviewed. No chest pain at the time of admission.
[2017-01-06 22:13] LABS: Basophils % 0.2 %; Eosinophils # 0.1 K/mcL (0.0-0.6); Eosinophils % 0.7 %; Hematocrit 38.8 % (37.5-50.1); Hemoglobin 12.9 g/dL (12.9-16.9); Immature Granulocytes % 0.3 % (0-4); Lymphocytes # 2.2 K/mcL (0.6-4.6); Lymphocytes % 18.3 %; Mean Corpuscular HGB Conc 33.2 g/dL (31.6-35.5); Mean Corpuscular Hemoglobin 33.1 pg (28.0-33.3); Mean Corpuscular Volume 99.5 fL (83.0-100.0); Mean Platelet Volume 9.6 fL (9.4-12.4); Monocytes # 0.7 K/mcL (0.0-1.3); Monocytes % 5.9 %; Platelet Count 245 K/mcL (140-400); Red Cell Distribution Width 12.6 % (11.5-14.5); Segmented Neutrophils % 74.6 %
[2017-01-06 22:25] LABS: BUN/Creatinine Ratio 19 (6-26); Blood Urea Nitrogen 18 mg/dL (8-26); Calcium 9.1 mg/dL (8.6-10.8); Carbon Dioxide 21 mEq/L (19-29); Chloride 106 mEq/L (98-109); Glucose 97 mg/dL (70-99); Osmolality,Calculated 294 (280-300); Potassium 3.4 mEq/L (3.5-4.5); Sodium 141 mEq/L (136-145); eGFR For African Americans > 60 (> 60); eGFR For Non-African Americans > 60 (> 60)
[2017-01-06] MEDS ORDERED: Ipratropium/Albuterol Neb 3 ML IH ONE (22:58)
[2017-01-06] MEDS ORDERED: *HR* Morphine 2 MG/ML SYRINGE IVP ONE ×2 (23:12→23:15)
[2017-01-06] MEDS ORDERED: Nitroglycerin 0.4 MG TAB.SUBL SL PRN (23:15)
[2017-01-07] MEDS ORDERED: *HR* Promethazine 25 MG/ML VIAL IVP PRN (05:11)
[2017-01-07] MEDS ORDERED: Naloxone 0.4 MG/ML INJ IVP PRN (05:11)
[2017-01-07] MEDS ORDERED: *HR* OxyCODONE Immed Rel 5 MG TABLET PO PRN (05:11)
[2017-01-07] MEDS ORDERED: Albuterol 2.5 MG/3 ML NEBULIZER IH PRN (05:11)
[2017-01-07] MEDS ORDERED: Ibuprofen 400 MG TABLET PO PRN (05:22)
--- NOTE | 2017-01-07 05:34 | Internal Med History&Physical ---
Date of Encounter: 01/07/17 Time of Encounter: 04:45 Assessment and Plan (1) Acute exacerbation of chronic obstructive pulmonary disease (COPD) Current visit: Yes Status: Acute 1. Patient with significant wheezing, coughing, and chest congestion. 2. Will treat with steroids, aerosols, antibiotics, and oxygen. 3. Check for Influenza given ECF stay. (2) Post-tussive syncope Current visit: Yes Status: Acute 1. Likely due to AECOPD. 2. Will check for Pertussis given the syncope after coughing. (3) CAD (coronary artery disease) Current visit: No Status: Chronic 1. No chest pain or SOB reported by patient. 2. Will cycle troponins and EKG's. 3. Continue home meds as appropriate. Qualifiers: Coronary Disease-Associated Artery/Lesion type: unspecified vessel or lesion type [place] vs. transplanted heart: [place] heart Associated angina: without angina Qualified Code(s): I25.10 - Atherosclerotic heart disease of [place] coronary artery without angina pectoris (4) DVT prophylaxis Current visit: Yes Status: Acute 1. Heparin SQ. Internal Medicine - H&P: HPI Chief complaint: coughing with syncope Admitted From: Emergency Dept Plans for Post Hospital Care: Transfer [facility] History of present illness: Mr. Salmon is a 71 year old male with history of COPD and chronic diastolic CHF presents with posttussive syncope. He has been at a local shelter facility for rehabilitation after his [facility] hospital stay at [facility]. Tonight, he had a significant coughing spell associated with his wheezing and COPD. He was coughing vigorously and sustained a coughing spell where he had a syncopal spell. He fell forward and hit his forehead and sustained a laceration above his left eye. He came to the ER for evaluation where he had laceration repair and workup. Workup was negative and he was admitted to hospitalist service. Upon my assessment of the patient, he has significant coughing, wheezing, mild shortness of breath, and neck and forehead pain. CT scans of his head and neck were negative. He denies any chest pain. He denies any shortness of breath other than the coughing and wheezing. He did have one alcohol beverage tonight before the above episode happened. He states he seldom drinks alcohol, but he did have one shot of vodka tonight. He denies any fevers or chills. He has had coughing paroxysms for the last several weeks, however. He is in a jail and has had multiple ill contacts lately as well. Past Med Surg Social Fam HX - Past Medical History Attestation: Yes The following information was validated with the patient. Source: patient, old records reviewed Medical history: asthma, atrial fibrillation, cirrhosis, COPD, coronary artery disease, GI bleed, liver disease, seizures Psychiatric history: depression, panic disorder, PTSD - Past Surgical History Surgical History: angioplasty/stent - Social History Smoking Status: Current some day smoker Packs per day: 4-5 cigarettes a day Smokeless Tobacco Status: No Alcohol use: heavy Drug use: none Occupational status: retired Current living situation: [facility], [facility] Recent Out of Country Travel Within the Last 8 Weeks: No - Family History Father Adopted: No Family Member Ethnicity: Non- Living Status: Age at : 62 Cause of : heart attack Hx Family Cardiac Disorders: Yes (heart attack) Hx Family Respiratory Disorders: Yes (COPD) Hx Family Cancer: Yes (Testicular) Hx Family GI Disorders: No Hx Family Endocrine Disorder: No Hx Family Neuromuscular Disorders: No Hx Family Neurologic Disorders: No Hx Family HEENT Disorders: No Hx Family Autoimmune Disorders: No Mother Adopted: No Family Member Ethnicity: Non- Living Status: Age at : 57 Cause of : cancer Hx Family Cancer: Yes (panc) Internal Medicine - H&P: Meds Albuterol Sulfate [Albuterol Inhaler] 2 puff IH Q4-6H PRN 05/07/15 [History] Folic Acid 1 mg PO DAILY 05/07/15 [History] Isosorbide MONOnitrate [Isosorbide Mononitrate ER] 30 mg PO DAILY 05/07/15 [ History] Omeprazole [PriLOSEC] 20 mg PO BID 05/07/15 [History] Thiamine HCl [Vitamin B-1] 100 mg PO DAILY 05/07/15 [History] Albuterol Neb [Proventil Neb] 2.5 mg IH Q4H PRN 04/24/16 [History] Sucralfate [Carafate] 1 gm PO QID 04/24/16 [History] Potassium Chloride 20 meq PO DAILY 30 Days 04/28/16 [Rx] Mometasone Furoate [Asmanex] 2 puff IH BID 06/30/16 [History] Phenytoin ER [Dilantin ER] 200 mg PO QAM 06/30/16 [History] Aspirin [Lo-Dose Aspirin EC] 81 mg PO DAILY 09/30/16 [History] Buspirone HCl [Buspar] 2.5 mg PO DAILY 09/30/16 [History] Cyanocobalamin (Vitamin B-12) [Vitamin B-12] 100 mcg PO HS 09/30/16 [History] Diltiazem HCl [Diltiazem 24Hr Cd] 240 mg PO DAILY 09/30/16 [History] Ferrous Gluconate 324 mg PO DAILY 09/30/16 [History] Furosemide [Lasix] 40 mg PO AD 09/30/16 [History] Melatonin 6 mg PO HS 09/30/16 [History] Olodaterol HCl [Striverdi Respimat] 2 puff IH DAILY 09/30/16 [History] Sertraline [Zoloft] 50 mg PO QAM 09/30/16 [History] Azithromycin [Zithromax] 250 mg PO DAILY 01/06/17 [History] Baclofen [Lioresal] 10 mg PO Q6H PRN 01/06/17 [History] Chlorhexidine Gluconate [Peridex] 15 ml MM BID 01/06/17 [History] Fluticasone Propionate Nasal [Flonase] 50 mcg NS BID 01/06/17 [History] HydrOXYzine 10 mg PO Q6H PRN 01/06/17 [History] Ibuprofen [Motrin] 400 mg PO Q6H PRN 01/06/17 [History] Ipratropium/Albuterol Neb [Duoneb] 3 ml IH Q4H 01/06/17 [History] Lisinopril [Zestril] 2.5 mg PO DAILY 01/06/17 [History] Lisinopril [Zestril] 5 mg PO DAILY 01/06/17 [History] Loratadine [Claritin] 10 mg PO DAILY 01/06/17 [History] Magnesium Oxide [Mag-Ox] 400 mg PO TID 01/06/17 [History] Oxygen 2 l NS AD 01/06/17 [History] PredniSONE 40 mg PO DAILY 01/06/17 [History] TraZODone 25 mg PO HS 01/06/17 [History] Allergies Penicillins Allergy (Severe, Verified 01/06/17 20:52) Anaphylaxis diphenhydramine Allergy (Verified 01/06/17 20:52) See Comments fentanyl Allergy (Verified 01/06/17 20:52) See Comments lidocaine Allergy (Verified 01/06/17 20:52) See Comments midazolam Allergy (Verified 01/06/17 20:52) See Comments venlafaxine [From Effexor] Adverse Reaction (Unknown, Verified 01/06/17 20:52) See Comments "Made me go into a coma." - Constitutional Constitutional: no chills, no fever(s) - EENT Eyes: no blurry vision, no change in vision, no loss of vision Ears: no ear pain, no tinnitus Nose, mouth and throat: nasal congestion, post-nasal drip, no epistaxis, no sinus pain, no sinus pressure, no sore throat - Cardiovascular Cardiovascular ROS IM: edema, syncope (psot-tussive), no chest pain, no diaphoresis, no dyspnea, no dyspnea on exertion, no irregular heart rhythm, no lightheadedness, no palpitations - Respiratory Respiratory: cough, wheezing, chest congestion, excessive phlegm production, change in phlegm color, no dyspnea, no hemoptysis, no dyspnea on exertion, no pain with cough - Gastrointestinal Gastrointestinal: no abdominal pain, no diarrhea, no vomiting - Genitourinary Genitourinary ROS male: no dysuria, no flank pain, no hematuria - Musculoskeletal Musculoskeletal ROS IM: arthralgias, no back pain, no myalgias - Integumentary Integumentary IM: no rash, no jaundice - Neurological Neurological ROS: no dizziness, no focal weakness, no frequent falls, no headache(s), no vertigo, no weakness - Psychiatric Psychiatric: no anxiety, no depression - Endocrine Endocrine IM: no cold intolerance, no heat intolerance, no polydipsia - Hematologic/Lymphatic Hematologic/Lymphatic: no easy bruising, no lymphadenopathy - Allergic/Immunologic Allergic/Immunologic: wheezing, no GI upset with certain foods - Constitutional Vitals: Temp Pulse Resp BP Pulse Ox 97.6 F 59 19 138/78 92 01/07/17 05:02 01/07/17 05:02 01/07/17 05:02 01/07/17 05:02 01/07/17 05:02 General appearance: Present: cooperative, A&O X 3, pleasant, no acute distress, obese - Head Head exam: Absent: normal inspection Additional comments: laceration repair above left eyebrow with localized edema and bruising - Expanded Head Exam Head exam expanded: Present: contusion, general tenderness (left forehead) - Eye Eye exam: Present: EOMI, normal appearance, PERRL. Absent: scleral icterus Pupils: Present: normal accommodation - ENT ENT exam: Present: mucous membranes dry, normal exam, normal oropharynx - Neck Neck exam general surgery: Present: full ROM, tenderness (posteriorly). Absent : lymphadenopathy, nuchal rigidity, thyromegaly - Respiratory Respiratory exam: Present: rales (faint), respiratory distress (mild), wheezes. Absent: accessory muscle use, chest wall tenderness, CTAB, rhonchi - Cardiovascular Cardiovascular exam: Present: distant heart sounds, RRR, +S1, +S2. Absent: JVD , systolic murmur - GI/Abdominal GI/Abdominal exam: Present: normal bowel sounds, soft. Absent: guarding, hepatomegaly, rebound, splenomegaly, tenderness - Extremities Exam Extremities exam: Present: full ROM, pedal edema (trace), warm, radial pulses palpable and symetrical. Absent: calf tenderness, joint swelling - Back Exam Back exam: Present: normal inspection. Absent: CVA tenderness (L), CVA tenderness (R) - Neurological Exam Neurological exam: Present: alert, CN II-XII intact, oriented X3, no focal deficits - Psychiatric Psychiatric exam: Present: normal affect, normal mood - Skin Skin exam: Present: dry, warm. Absent: rash Internal Med - H&P Results - Labs CBC & Chem 7: 01/06/17 22:04 01/06/17 22:04 - Diagnostic Studies Chest x-ray Status: image reviewed by me (negative) CT scan - head Status: image reviewed by me (negative; reprot reviewed as well)
[2017-01-07 05:54] LABS: INR 1.1; Prothrombin Time 11.6 Seconds (9.4-12.1)
[2017-01-07 05:56] LABS: Activated Partial Thrombo Time 24.9 Seconds (26.0-36.0)
[2017-01-07 06:04] LABS: Alanine Aminotransferase 6 Units/L (0-55); Albumin 3.1 g/dL (3.5-5.0); Albumin/Globulin Ratio 0.9 (1.1-2.2); Alkaline Phosphatase 71 Units/L (38-126); Aspartate Amino Transferase 11 Units/L (5-34); BUN/Creatinine Ratio 19 (6-26); Bilirubin,Total 0.5 mg/dL (0.2-1.2); Blood Urea Nitrogen 16 mg/dL (8-26); Calcium 9.2 mg/dL (8.6-10.8); Carbon Dioxide 28 mEq/L (19-29); Chloride 102 mEq/L (98-109); Globulin 3.5 g/dL (2.4-3.5); Glucose 105 mg/dL (70-99); Magnesium 1.7 mg/dL (1.6-2.6); Osmolality,Calculated 294 (280-300); Potassium 3.1 mEq/L (3.5-4.5); Sodium 141 mEq/L (136-145); Total Protein 6.6 g/dL (6.0-8.3); eGFR For African Americans > 60 (> 60); eGFR For Non-African Americans > 60 (> 60)
[2017-01-07 06:13] LABS: Basophils # 0.1 K/mcL (0.0-0.2); Basophils % 0.5 %; Eosinophils # 0.2 K/mcL (0.0-0.6); Eosinophils % 1.9 %; Hematocrit 38.9 % (37.5-50.1); Hemoglobin 12.9 g/dL (12.9-16.9); Immature Granulocytes % 0.2 % (0-4); Lymphocytes % 32.2 %; Mean Corpuscular HGB Conc 33.2 g/dL (31.6-35.5); Mean Corpuscular Volume 99.5 fL (83.0-100.0); Mean Platelet Volume 9.8 fL (9.4-12.4); Monocytes # 0.7 K/mcL (0.0-1.3); Monocytes % 7.3 %; Neutrophils # 5.4 K/mcL (1.6-8.9); Platelet Count 235 K/mcL (140-400); Red Blood Count 3.91 M/mcL (4.19-5.50); Red Cell Distribution Width 12.8 % (11.5-14.5); Segmented Neutrophils % 57.9 %
--- NOTE | 2017-01-07 06:45 | Electrocardiograph Report ---
[address] [address] Test Date: 2017-01-06 Pat Name: Tuan Salmon Department: 102 Room: 2NE26 Gender: M Piler: Eddy : 1945 Requested By: Adiel Wiggins Order Number: [id number] Reading MD: Eleno Gurrola MD Measurements Intervals [place] Rate: 88 P: 71 SD: 149 QRS: 67 QRSD: 123 T: 40 QT: 388 QTc: 433 Interpretive Statements ECTOPIC ATRIAL RHYTHM INTRAVENTRICULAR CONDUCTION DELAY INFERIOR [place], AGE UNDETERMINED Electronically Signed On 01-07-2017 6:43:26 EDT by Eleno Gurrola MD
[2017-01-07] MEDS: *HR* Morphine 2 MG/ML SYRINGE IVP PRN ×2 (06:52→11:25)
[2017-01-07] MEDS: Levofloxacin 500 MG/100 ML 500 MG/100 ML BAG IVPB SCH (06:53)
[2017-01-07] MEDS: Furosemide 40 MG/4 ML VIAL IVP SCH ×2 (06:53→16:12)
[2017-01-07] MEDS: *HR* Heparin 5,000 UNIT/ML VIAL SQ SCH ×2 (06:53→17:39)
[2017-01-07] MEDS: Ipratropium/Albuterol Neb 3 ML IH SCH ×5 (07:48→20:17)
[2017-01-07] MEDS: Beclomethasone 80mcg MDI IH SCH ×2 (08:18→20:17)
[2017-01-07] MEDS: methylPREDNISolone 125 MG/2 ML VIAL IVP SCH ×2 (08:49→16:19)
[2017-01-07] MEDS: Aspirin Enteric Coated 81 MG Tablet PO SCH (08:50)
[2017-01-07] MEDS: Thiamine (B-1) 100 MG TABLET PO SCH (08:51)
[2017-01-07] MEDS: Folic Acid 1 MG TABLET PO SCH (08:51)
[2017-01-07] MEDS: Loratadine 10 MG TABLET PO SCH (08:51)
[2017-01-07] MEDS: Sucralfate 1 GM TABLET PO SCH ×4 (08:51→20:26)
[2017-01-07] MEDS: Magnesium Oxide 400 MG TABLET PO SCH ×3 (08:51→20:26)
[2017-01-07] MEDS: Chlorhexidine Rinse 15 ML MOUTHWASH MM SCH ×2 (08:54→20:26)
--- NOTE | 2017-01-07 09:05 | Internal Med Progress Note ---
<Jeff Norman - Last Filed: 01/07/17 11:35> Date of Encounter: 01/07/17 Time of Encounter: 09:05 - Assessment and plan (1) Acute exacerbation of chronic obstructive pulmonary disease (COPD) Current Visit: Yes Status: Acute Assessment and plan: Patient with known history of COPD on continuous 3L oxygen and asthma, reportedly with cough over the past 6 months, and acute worsening over the past month with significant coughing spells presents from [facility] after syncopal episode and left orbital laceration. CXR revealed subsegmental bibasilar atelectasis, no acute cardiopulmonary processes. WBC this morning 9.4, decreased from 12.0 on admission. Satting 97% on 3L nasal cannula Continue with solumedrol 80mg q8h, duonebs increased to q4h, albuterol as needed , Levaquin, and supplemental oxygen. Influenza and pertussis pending. (2) Post-tussive syncope Current Visit: Yes Status: Acute Assessment and plan: Likely secondary to acute exacerbation of COPD with concomittant alcohol use. Patient sustained a left periorbital 1.[address] Head was negative for acute intracranial process. CT Cervical spine revealed no acute abnormalities, multilevel degenerative disc disease with hypertrophic changes. Alcohol level elevated, consistent with patient history. PT 11.6, INR 1.1 PTT 24.9 Influenza and pertussis ordered. (3) Chest pain Current Visit: Yes Status: Acute Assessment and plan: Patient reported intermittent chest pain for the past 24 hours that has resolved prior to arrival without additional interventions. Troponin was 0.01, 0.00 EKG revealed normal sinus rhythm without st changes. Last echo 10/28/16 revealed LVEF >70%, normal LV size and thickness with mild concentric LV hypertrophy, normal RV. Qualifiers: Chest pain type: unspecified Qualified Code(s): R07.9 - Chest pain, unspecified (4) Afib Current Visit: Yes Status: Chronic Assessment and plan: Patient with a history of afib on Cardizem, reports no additional anticoagulation other than aspirin. Patient is currently normal sinus. Qualifiers: Atrial fibrillation type: paroxysmal Qualified Code(s): I48.0 - Paroxysmal atrial fibrillation (5) Alcoholic cirrhosis of liver Current Visit: Yes Status: Chronic Assessment and plan: Patient with a history of alcohol use disorder and resultant cirrhosis of liver. AST 11, ALT 6, Alk phos 71 Continue with home meds for chronic disease management, Lasix 40mg bid. Qualifiers: Ascites presence: without ascites Qualified Code(s): K70.30 - Alcoholic cirrhosis of liver without ascites (6) CAD (coronary artery disease) Current Visit: Yes Status: Chronic Assessment and plan: Continue home medications for chronic disease management. Qualifiers: Coronary Disease-Associated Artery/Lesion type: unspecified vessel or lesion type [place] vs. transplanted heart: [place] heart Associated angina: without angina Qualified Code(s): I25.10 - Atherosclerotic heart disease of [place] coronary artery without angina pectoris (7) DVT prophylaxis Current Visit: Yes Status: Acute Assessment and plan: heparin sq for dvt ppx. - Subjective Interval history: Mr. Salmon is a 71 year old male with history of asthma, COPD on continuous 3L oxygen, afib, alcoholic liver cirrhosis, CAD, seizures, ptsd, panic attacks, and tobacco use disorder who presented from the [facility] with syncopal episode secondary to coughing spell. Patient fell and sustained a laceration above his left eye. Patient reports that he has had a significant cough for the past 6 months and has worsened over the past month. Patient reports that he was taking prednisone previously without improvement in symptoms. CT Head was negative for acute intracranial processes, scalp contusion of left frontal periorbital region. EKG revealed normal sinus rhythm without st changes. CT cervical spine was negative for acute abnormality, noted multilevel degenerative disc disease and hypertrophic changes. CXR revealed subsegmental bibasilar atelectasis without acute changes. Troponin was 0.01, 0.00. Patient reports that he took 160mg of lasix before arrival to ED thinking exacerbation of heart failure, though review of records indicates no documented heart failure and essentially normal echo in Oct 2016 completed at this facility. Patient reports no additional improvement in symptoms since admission. Patient denies fevers, chills, sweats, changes in hearing, nausea, vomiting, chest pain , abdominal pain, changes in bowels or bladder, weakness, or loss of sensation. - Constitutional Vitals: Temp Pulse Resp BP Pulse Ox 97.7 F 83 18 124/71 97 01/07/17 06:56 01/07/17 06:56 01/07/17 08:18 01/07/17 06:56 01/07/17 08:18 General appearance: Present: cooperative, A&O X 3, pleasant, no acute distress, obese, answers questions appropriately - Head Head exam: Present: atraumatic, normal inspection, normocephalic - Eye Additional comments: Right eye: normal, EOMI. Left eye: periorbital tenderness, swelling, and ecchymosis, EOMI, mild scleral erythema, left periorbital laceration sutured. PERRLA - ENT ENT exam: Present: mucous membranes moist, normal exam, normal external ear exam , normal oropharynx - Neck Neck exam general surgery: Present: supple, trachea midline. Absent: tenderness - Respiratory Respiratory exam: Present: wheezes (diffuse). Absent: rales, rhonchi - Cardiovascular Cardiovascular exam: Present: RRR, +S1, +S2. Absent: diastolic murmur, JVD, systolic murmur - GI/Abdominal GI/Abdominal exam: Present: normal bowel sounds, soft. Absent: distended, guarding, tenderness - Extremities Exam Extremities exam: Present: full ROM, normal capillary refill, normal inspection , warm, radial pulses palpable and symetrical. Absent: pedal edema, tenderness - Neurological Exam Neurological exam: Present: alert, oriented X3, no focal deficits, strengths equal and symetr throughout. Absent: facial droop, speech deficit - Psychiatric Psychiatric exam: Present: normal affect, normal mood - Skin Skin exam: Present: dry, intact, normal color, warm. Absent: diaphoretic, erythema, pallor, rash Internal Medicine: Result - Labs CBC & Chem 7: 01/07/17 05:41 01/07/17 05:41 Labs: Short CBC 01/07/17 Range/Units 05:41 WBC 9.4 (4.3-11.1) K/mcL Hgb 12.9 (12.9-16.9) g/dL Hct 38.9 (37.5-50.1) % Plt Count 235 (140-400) K/mcL Neutrophils # 5.4 (1.6-8.9) K/mcL BMP 01/07/17 05:41 Sodium 141 Potassium 3.1 L Chloride 102 Carbon Dioxide 28 BUN 16 Creatinine 0.84 Glucose 105 H Calcium 9.2 Cardiac Enzymes 01/07/17 Range/Units 05:41 Troponin I 0.01 (0-0.03) ng/mL Liver Function 01/07/17 Range/Units 05:41 Total Bilirubin 0.5 (0.2-1.2) mg/dL AST 11 (5-34) Units/L ALT 6 (0-55) Units/L Alkaline Phosphatase 71 (38-126) Units/L Albumin 3.1 L (3.5-5.0) g/dL - ABG Interpretation ABG results: PT/INR, D-dimer PT 11.6 Seconds (9.4-12.1) 01/07/17 05:41 Consult Discharge Plan - Plan Referrals: NO,PCP [Primary Care Provider] - <Bubba Holm P - Last Filed: 01/07/17 16:26> Date of Encounter: 01/07/17 - Constitutional Vitals: Temp Pulse Resp BP Pulse Ox 97.7 F 76 18 127/66 99 01/07/17 15:00 01/07/17 15:00 01/07/17 15:27 01/07/17 15:00 01/07/17 15:27 Internal Medicine: Result - Labs CBC & Chem 7: 01/07/17 05:41 01/07/17 05:41 Labs: Short CBC 01/07/17 Range/Units 05:41 WBC 9.4 (4.3-11.1) K/mcL Hgb 12.9 (12.9-16.9) g/dL Hct 38.9 (37.5-50.1) % Plt Count 235 (140-400) K/mcL Neutrophils # 5.4 (1.6-8.9) K/mcL BMP 01/07/17 05:41 Sodium 141 Potassium 3.1 L Chloride 102 Carbon Dioxide 28 BUN 16 Creatinine 0.84 Glucose 105 H Calcium 9.2 Cardiac Enzymes 01/07/17 01/07/17 Range/Units 05:41 11:11 Troponin I 0.01 0.00 (0-0.03) ng/mL Liver Function 01/07/17 Range/Units 05:41 Total Bilirubin 0.5 (0.2-1.2) mg/dL AST 11 (5-34) Units/L ALT 6 (0-55) Units/L Alkaline Phosphatase 71 (38-126) Units/L Albumin 3.1 L (3.5-5.0) g/dL - ABG Interpretation ABG results: PT/INR, D-dimer PT 11.6 Seconds (9.4-12.1) 01/07/17 05:41 - Attending Attestation I examined this patient and my medical decision-making was reviewed with the TAIL PULLER/PA/Advanced Practice Nurse/Resident Physician. I agree with the documented findings, disposition and treatment plan as described except to the extent set forth below.
[2017-01-07 10:30] LABS: 2009 H1N1 PCR NOT DETECTED (Not Detect); Influenza A PCR Negative (Negative); Influenza B PCR Negative (Negative)
[2017-01-07] MEDS: Isosorbide MONOnitrate (24 HR) 30 MG TAB.ER.24H PO SCH (11:23)
[2017-01-07] MEDS: Diltiazem CD (24hr) 240 MG CAPSULE PO SCH (11:23)
[2017-01-07] MEDS: Fluticasone Propionate Nasal 50 MCG/SPRAY BOTTLE NS SCH ×2 (11:24→20:26)
[2017-01-07] MEDS: Acetaminophen 325 MG TABLET PO PRN (14:14)
[2017-01-07] MEDS: Cyanocobalamin (B-12) 1,000 MCG TABLET PO SCH (20:25)
[2017-01-07] MEDS: Melatonin 3 MG TABLET PO SCH (20:25)
[2017-01-08] MEDS: Ipratropium/Albuterol Neb 3 ML IH SCH ×7 (00:05→23:48)
[2017-01-08] MEDS: methylPREDNISolone 125 MG/2 ML VIAL IVP SCH ×4 (00:38→22:18)
[2017-01-08] MEDS: *HR* Morphine 2 MG/ML SYRINGE IVP PRN ×5 (00:38→20:06)
[2017-01-08 04:57] LABS: Basophils % 0.2 %; Hematocrit 39.2 % (37.5-50.1); Hemoglobin 13.3 g/dL (12.9-16.9); Immature Granulocytes % 0.2 % (0-4); Lymphocytes # 0.8 K/mcL (0.6-4.6); Mean Corpuscular HGB Conc 33.9 g/dL (31.6-35.5); Mean Corpuscular Hemoglobin 33.3 pg (28.0-33.3); Mean Corpuscular Volume 98.2 fL (83.0-100.0); Mean Platelet Volume 10.2 fL (9.4-12.4); Monocytes # 0.2 K/mcL (0.0-1.3); Monocytes % 2.7 %; Neutrophils # 4.6 K/mcL (1.6-8.9); Platelet Count 215 K/mcL (140-400); Red Blood Count 3.99 M/mcL (4.19-5.50); Red Cell Distribution Width 12.2 % (11.5-14.5); Segmented Neutrophils % 81.9 %
[2017-01-08 05:10] LABS: BUN/Creatinine Ratio 30 (6-26); Blood Urea Nitrogen 26 mg/dL (8-26); Calcium 9.2 mg/dL (8.6-10.8); Carbon Dioxide 27 mEq/L (19-29); Chloride 103 mEq/L (98-109); Glucose 164 mg/dL (70-99); Osmolality,Calculated 294 (280-300); Potassium 3.9 mEq/L (3.5-4.5); Sodium 138 mEq/L (136-145); eGFR For African Americans > 60 (> 60); eGFR For Non-African Americans > 60 (> 60)
[2017-01-08] MEDS: Levofloxacin 500 MG/100 ML 500 MG/100 ML BAG IVPB SCH (06:06)
[2017-01-08] MEDS: *HR* Heparin 5,000 UNIT/ML VIAL SQ SCH ×2 (06:06→17:30)
[2017-01-08] MEDS: Beclomethasone 80mcg MDI IH SCH ×2 (07:57→20:12)
[2017-01-08] MEDS: Diltiazem CD (24hr) 240 MG CAPSULE PO SCH (08:53)
[2017-01-08] MEDS: Furosemide 40 MG/4 ML VIAL IVP SCH ×2 (08:53→17:27)
[2017-01-08] MEDS: Chlorhexidine Rinse 15 ML MOUTHWASH MM SCH ×2 (08:53→20:06)
[2017-01-08] MEDS: Aspirin Enteric Coated 81 MG Tablet PO SCH (08:54)
[2017-01-08] MEDS: Folic Acid 1 MG TABLET PO SCH (08:54)
[2017-01-08] MEDS: Magnesium Oxide 400 MG TABLET PO SCH ×3 (08:54→20:06)
[2017-01-08] MEDS: Thiamine (B-1) 100 MG TABLET PO SCH (08:55)
[2017-01-08] MEDS: Loratadine 10 MG TABLET PO SCH (08:55)
[2017-01-08] MEDS: Sucralfate 1 GM TABLET PO SCH ×4 (08:55→20:06)
[2017-01-08] MEDS: Isosorbide MONOnitrate (24 HR) 30 MG TAB.ER.24H PO SCH (08:55)
--- NOTE | 2017-01-08 08:55 | Internal Med Progress Note ---
<Jeff Norman - Last Filed: 01/08/17 13:51> Date of Encounter: 01/08/17 Time of Encounter: 08:54 - Assessment and plan (1) Acute exacerbation of chronic obstructive pulmonary disease (COPD) Current Visit: Yes Status: Acute Assessment and plan: Patient with known history of COPD on continuous 3L oxygen and asthma, reportedly with cough over the past 6 months, and acute worsening over the past month with significant coughing spells presents from [place] nursing facility after syncopal episode and left orbital laceration. CXR revealed subsegmental bibasilar atelectasis, no acute cardiopulmonary processes. WBC this morning 5.6, decreased from 12.0 on admission. Influenza and pertussis negative. Satting 94% on 3.5L nasal cannula Continue with solumedrol 80mg q8h, duonebs increased to q4h, albuterol as needed , Levaquin, and supplemental oxygen. (2) Post-tussive syncope Current Visit: Yes Status: Acute Assessment and plan: Likely secondary to acute exacerbation of COPD with concomittant alcohol use. Patient sustained a left periorbital 1.[address] Head was negative for acute intracranial process. CT Cervical spine revealed no acute abnormalities, multilevel degenerative disc disease with hypertrophic changes. Alcohol level elevated, consistent with patient history. PT 11.6, INR 1.1 PTT 24.9 Influeza and pertussis negative. Neck and shoulder pain likely secondary to trauma after posttussive syncope. Adjusted pain medications. Worsened blurred vision with otherwise essentially normal exam. May consider imaging if worsens, no pain deep in orbit or complete loss of vision. Likely secondary to trauma vs reported history of significant vision correction without current correcting devices. (3) Chest pain Current Visit: Yes Status: Acute Assessment and plan: Patient reported intermittent chest pain for the past 24 hours that has resolved prior to arrival without additional interventions. Troponin was 0.01, 0.00 EKG revealed normal sinus rhythm without st changes. Last echo 10/28/16 revealed LVEF >70%, normal LV size and thickness with mild concentric LV hypertrophy, normal RV. Qualifiers: Chest pain type: unspecified Qualified Code(s): R07.9 - Chest pain, unspecified (4) Afib Current Visit: Yes Status: Chronic Assessment and plan: Patient with a history of afib on Cardizem, reports no additional anticoagulation other than aspirin. Patient is currently normal sinus. Qualifiers: Atrial fibrillation type: paroxysmal Qualified Code(s): I48.0 - Paroxysmal atrial fibrillation (5) Alcoholic cirrhosis of liver Current Visit: Yes Status: Chronic Assessment and plan: Patient with a history of alcohol use disorder and resultant cirrhosis of liver. AST 11, ALT 6, Alk phos 71 Continue with home meds for chronic disease management, Lasix 40mg bid. May consider CIWA protocol if shows signs of withdrawal. [place] nursing facility noted finding empty vodka bottles, Alcohol was 50 on arrival. Qualifiers: Ascites presence: without ascites Qualified Code(s): K70.30 - Alcoholic cirrhosis of liver without ascites (6) CAD (coronary artery disease) Current Visit: Yes Status: Chronic Assessment and plan: Continue home medications for chronic disease management. Qualifiers: Coronary Disease-Associated Artery/Lesion type: unspecified vessel or lesion type [place] vs. transplanted heart: [place] heart Associated angina: without angina Qualified Code(s): I25.10 - Atherosclerotic heart disease of [place] coronary artery without angina pectoris (7) DVT prophylaxis Current Visit: Yes Status: Acute Assessment and plan: heparin sq for dvt ppx. - Subjective Interval history: Reports continued shortness of breath, wheezing, and dry cough without improvement since admission. Patient reports overnight having significant neck pain that is occasionally sharp and possibly some increased blurriness of left eye from yesterday; no complete loss of vision. Patient denies fevers, chills, sweats, changes in hearing, nausea, vomiting, chest pain, abdominal pain, changes in bowels or bladder, weakness, or loss of sensation. - Constitutional Vitals: Temp Pulse Resp BP Pulse Ox 97.8 F 71 94 139/64 94 01/08/17 07:00 01/08/17 07:00 01/08/17 07:00 01/08/17 08:28 01/08/17 04:35 General appearance: Present: cooperative, A&O X 3, pleasant, no acute distress, obese, answers questions appropriately - Head Head exam: Present: atraumatic, normal inspection, normocephalic - Eye Additional comments: Right eye: normal, EOMI. Left eye: periorbital tenderness, swelling, and ecchymosis, EOMI, mild scleral erythema, left periorbital laceration sutured. PERRLA - ENT ENT exam: Present: mucous membranes moist, normal exam, normal external ear exam , normal oropharynx - Neck Neck exam general surgery: Present: full ROM, normal inspection, tenderness. Absent: nuchal rigidity, supple, trachea midline - Respiratory Respiratory exam: Present: wheezes. Absent: rales, rhonchi - Cardiovascular Cardiovascular exam: Present: RRR, +S1, +S2. Absent: diastolic murmur, JVD, systolic murmur - GI/Abdominal GI/Abdominal exam: Present: normal bowel sounds, soft. Absent: distended, guarding, tenderness - Extremities Exam Extremities exam: Present: full ROM, normal inspection, warm. Absent: pedal edema, tenderness - Neurological Exam Neurological exam: Present: alert, oriented X3, no focal deficits, strengths equal and symetr throughout. Absent: facial droop, speech deficit - Psychiatric Psychiatric exam: Present: normal affect, normal mood - Skin Skin exam: Present: dry, intact, normal color, warm. Absent: diaphoretic, erythema, pallor Internal Medicine: Result - Labs CBC & Chem 7: 01/08/17 04:43 01/08/17 04:43 Labs: Short CBC 01/08/17 Range/Units 04:43 WBC 5.6 (4.3-11.1) K/mcL Hgb 13.3 (12.9-16.9) g/dL Hct 39.2 (37.5-50.1) % Plt Count 215 (140-400) K/mcL Neutrophils # 4.6 (1.6-8.9) K/mcL BMP 01/08/17 04:43 Sodium 138 Potassium 3.9 Chloride 103 Carbon Dioxide 27 BUN 26 D Creatinine 0.87 Glucose 164 H Calcium 9.2 Cardiac Enzymes 01/07/17 01/07/17 Range/Units 11:11 18:55 Troponin I 0.00 0.00 (0-0.03) ng/mL - ABG Interpretation ABG results: PT/INR, D-dimer PT 11.6 Seconds (9.4-12.1) 01/07/17 05:41 Consult Discharge Plan - Plan Referrals: NO,PCP [Primary Care Provider] - <Bubba Holm P - Last Filed: 01/08/17 17:05> Date of Encounter: 01/08/17 - Constitutional Vitals: Temp Pulse Resp BP Pulse Ox 98.3 F 85 12 134/83 95 01/08/17 15:00 01/08/17 15:00 01/08/17 15:37 01/08/17 15:00 01/08/17 15:37 Internal Medicine: Result - Labs CBC & Chem 7: 01/08/17 04:43 01/08/17 04:43 Labs: Short CBC 01/08/17 Range/Units 04:43 WBC 5.6 (4.3-11.1) K/mcL Hgb 13.3 (12.9-16.9) g/dL Hct 39.2 (37.5-50.1) % Plt Count 215 (140-400) K/mcL Neutrophils # 4.6 (1.6-8.9) K/mcL BMP 01/08/17 04:43 Sodium 138 Potassium 3.9 Chloride 103 Carbon Dioxide 27 BUN 26 D Creatinine 0.87 Glucose 164 H Calcium 9.2 Cardiac Enzymes 01/07/17 Range/Units 18:55 Troponin I 0.00 (0-0.03) ng/mL - ABG Interpretation ABG results: PT/INR, D-dimer PT 11.6 Seconds (9.4-12.1) 01/07/17 05:41 - Attending Attestation I examined this patient and my medical decision-making was reviewed with the SENIOR SPEECH PATHOLOGIST/PA/Advanced Practice Nurse/Resident Physician. I agree with the documented findings, disposition and treatment plan as described except to the extent set forth below.
[2017-01-08] MEDS: Fluticasone Propionate Nasal 50 MCG/SPRAY BOTTLE NS SCH ×2 (12:17→22:17)
[2017-01-08] MEDS: Cyanocobalamin (B-12) 1,000 MCG TABLET PO SCH (20:06)
[2017-01-08] MEDS: Melatonin 3 MG TABLET PO SCH (20:06)
[2017-01-08] MEDS: *HR* HYDROcodone/Acet 5/325 mg TABLET PO PRN (22:17)
[2017-01-09] MEDS: *HR* Morphine 2 MG/ML SYRINGE IVP PRN ×4 (01:05→21:38)
[2017-01-09] MEDS: Baclofen 10 MG TABLET PO PRN (03:22)
[2017-01-09] MEDS: Ipratropium/Albuterol Neb 3 ML IH SCH ×6 (04:12→23:40)
[2017-01-09] MEDS: *HR* HYDROcodone/Acet 5/325 mg TABLET PO PRN ×3 (04:32→20:26)
[2017-01-09 04:42] LABS: Basophils % 0.1 %; Hematocrit 37.8 % (37.5-50.1); Hemoglobin 12.5 g/dL (12.9-16.9); Immature Granulocytes % 0.7 % (0-4); Lymphocytes # 0.6 K/mcL (0.6-4.6); Lymphocytes % 6.4 %; Mean Corpuscular HGB Conc 33.1 g/dL (31.6-35.5); Mean Corpuscular Hemoglobin 32.6 pg (28.0-33.3); Mean Corpuscular Volume 98.7 fL (83.0-100.0); Monocytes # 0.4 K/mcL (0.0-1.3); Monocytes % 3.7 %; Neutrophils # 8.9 K/mcL (1.6-8.9); Platelet Count 235 K/mcL (140-400); Red Blood Count 3.83 M/mcL (4.19-5.50); Red Cell Distribution Width 12.4 % (11.5-14.5); Segmented Neutrophils % 89.1 %
[2017-01-09 04:56] LABS: BUN/Creatinine Ratio 35 (6-26); Blood Urea Nitrogen 32 mg/dL (8-26); Calcium 9.2 mg/dL (8.6-10.8); Carbon Dioxide 26 mEq/L (19-29); Chloride 103 mEq/L (98-109); Glucose 141 mg/dL (70-99); Osmolality,Calculated 299 (280-300); Potassium 3.8 mEq/L (3.5-4.5); Sodium 140 mEq/L (136-145); eGFR For African Americans > 60 (> 60); eGFR For Non-African Americans > 60 (> 60)
[2017-01-09] MEDS: Levofloxacin 500 MG/100 ML 500 MG/100 ML BAG IVPB SCH (06:53)
[2017-01-09] MEDS: *HR* Heparin 5,000 UNIT/ML VIAL SQ SCH ×2 (06:53→16:49)
[2017-01-09] MEDS: Aspirin Enteric Coated 81 MG Tablet PO SCH (08:13)
[2017-01-09] MEDS: Magnesium Oxide 400 MG TABLET PO SCH ×3 (08:13→20:04)
[2017-01-09] MEDS: Sucralfate 1 GM TABLET PO SCH ×4 (08:14→20:04)
[2017-01-09] MEDS: Folic Acid 1 MG TABLET PO SCH (08:14)
[2017-01-09] MEDS: Isosorbide MONOnitrate (24 HR) 30 MG TAB.ER.24H PO SCH (08:14)
[2017-01-09] MEDS: Thiamine (B-1) 100 MG TABLET PO SCH (08:14)
[2017-01-09] MEDS: Loratadine 10 MG TABLET PO SCH (08:14)
[2017-01-09] MEDS: Diltiazem CD (24hr) 240 MG CAPSULE PO SCH (08:14)
[2017-01-09] MEDS: Chlorhexidine Rinse 15 ML MOUTHWASH MM SCH ×2 (08:15→20:05)
[2017-01-09] MEDS: Beclomethasone 80mcg MDI IH SCH ×2 (08:30→20:19)
[2017-01-09] MEDS: methylPREDNISolone 125 MG/2 ML VIAL IVP SCH (08:52)
[2017-01-09] MEDS: Furosemide 40 MG/4 ML VIAL IVP SCH (08:52)
[2017-01-09] MEDS: Fluticasone Propionate Nasal 50 MCG/SPRAY BOTTLE NS SCH ×2 (09:01→20:05)
[2017-01-09] MEDS: levoFLOXacin 500 MG TABLET PO SCH (11:22)
[2017-01-09] MEDS: predniSONE 20 MG TABLET PO SCH (11:23)
[2017-01-09] MEDS: Furosemide 40 MG TABLET PO SCH ×2 (11:23→17:32)
--- NOTE | 2017-01-09 16:23 | Internal Med Progress Note ---
Date of Encounter: 01/09/17 Time of Encounter: 16:18 - Assessment and plan (1) Withdrawal symptoms, alcohol Current Visit: No Status: Acute Assessment and plan: Possible early alcohol withdrawal. Patient is tremulous. Plan: -We will start patient on Ativan. Noted that patient is allergic to midazolam. In the records it is not mentioned what kind of allergy. I spoke to patient and patient says that he in the past he has taken Ativan. I would like to hold her Librium at this point. We will start with low-dose Ativan. We will observe him very closely via [facility] protocol Qualifiers: Complication of substance-induced condition: with delirium Qualified Code(s ): F10.231 - Alcohol dependence with withdrawal delirium (2) Acute exacerbation of chronic obstructive airways disease Current Visit: No Status: Acute Assessment and plan: Presently on steroids 80 mg every 8 hours. Antibiotics : Levofloxacin Day 3 Bronchodilators. We will continue present treatment. Repeat labs tomorrow. (3) Post-tussive syncope Current Visit: Yes Status: Acute Assessment and plan: Likely secondary to acute exacerbation of COPD with concomittant alcohol use. Patient sustained a left periorbital 1.[address] Head was negative for acute intracranial process. CT Cervical spine revealed no acute abnormalities, multilevel degenerative disc disease with hypertrophic changes. Alcohol level elevated, consistent with patient history. PT 11.6, INR 1.1 PTT 24.9 Influeza and pertussis negative. Neck and shoulder pain likely secondary to trauma after posttussive syncope. Adjusted pain medications. Worsened blurred vision with otherwise essentially normal exam. May consider imaging if worsens, no pain deep in orbit or complete loss of vision. Likely secondary to trauma vs reported history of significant vision correction without current correcting devices. (4) Chest pain Current Visit: No Status: Acute Assessment and plan: Resolved Qualifiers: Chest pain type: unspecified Qualified Code(s): R07.9 - Chest pain, unspecified - Subjective Interval history: Patient seen and examined. Chart reviewed. Patient is tremulous. Patient claims that he was drinking everyday few drinks of hard liquor. Patient claims he knows better from the alcohol and he feels currently he is experiencing that. - Constitutional Vitals: Temp Pulse Resp BP Pulse Ox 97.8 F 75 16 142/75 99 01/09/17 07:01 01/09/17 07:01 01/09/17 11:54 01/09/17 07:01 01/09/17 11:54 General appearance: Present: cooperative, A&O X 3, pleasant, no acute distress, obese, answers questions appropriately - Head Head exam: Present: atraumatic, normocephalic - Eye Eye exam: Present: PERRL, conjuntiva pink, sclera anicteric Pupils: Present: PERRL - Neck Neck exam general surgery: Present: supple, trachea midline. Absent: lymphadenopathy - Respiratory Respiratory exam: Present: CTAB. Absent: accessory muscle use, rales, rhonchi, wheezes - Cardiovascular Cardiovascular exam: Present: RRR, +S1, +S2. Absent: diastolic murmur, gallop, rubs, systolic murmur - GI/Abdominal GI/Abdominal exam: Present: normal bowel sounds, soft, no peritoneal signs. Absent: distended, tenderness - Extremities Exam Extremities exam: Present: warm, radial pulses palpable and symetrical. Absent : calf tenderness, cyanotic, pedal edema - Neurological Exam Neurological exam: Present: CN II-XII intact, oriented X3, no focal deficits. Absent: pronater drift, facial droop, speech deficit - Skin Skin exam: Present: dry, intact Internal Medicine: Result - Labs CBC & Chem 7: 01/09/17 04:06 01/09/17 04:06 Labs: Short CBC 01/09/17 Range/Units 04:06 WBC 10.0 D (4.3-11.1) K/mcL Hgb 12.5 L (12.9-16.9) g/dL Hct 37.8 (37.5-50.1) % Plt Count 235 (140-400) K/mcL Neutrophils # 8.9 (1.6-8.9) K/mcL BMP 01/09/17 04:06 Sodium 140 Potassium 3.8 Chloride 103 Carbon Dioxide 26 BUN 32 H Creatinine 0.92 Glucose 141 H Calcium 9.2 - ABG Interpretation ABG results: PT/INR, D-dimer PT 11.6 Seconds (9.4-12.1) 01/07/17 05:41 Consult Discharge Plan - Plan Referrals: NO,PCP [Primary Care Provider] -
[2017-01-09] MEDS ORDERED: *HR* LORazepam 2 MG/ML VIAL IVP PRN ×3 (17:16→20:41)
[2017-01-09] MEDS ORDERED: *HR* LORazepam 2 MG/ML VIAL ONE (17:54)
[2017-01-09] MEDS: Thiamine (B-1) 100 MG, Folic Acid 1 MG, MVI, adult with vitamin K 10 ML in 0.9 % Sodi... IVPB SCH (18:08)
[2017-01-09] MEDS ORDERED: *HR* LORazepam 2 MG/ML VIAL IVP SCH ×2 (20:00)
[2017-01-09] MEDS: Melatonin 3 MG TABLET PO SCH (20:04)
[2017-01-09] MEDS: Cyanocobalamin (B-12) 1,000 MCG TABLET PO SCH (20:04)
[2017-01-09] MEDS: *HR* LORazepam 2 MG/ML VIAL IVP SCH (20:05)
[2017-01-09] MEDS: *HR* LORazepam 2 MG/ML VIAL IVP PRN (21:39)
[2017-01-10] MEDS: *HR* LORazepam 2 MG/ML VIAL IVP PRN (02:14)
[2017-01-10] MEDS: *HR* LORazepam 2 MG/ML VIAL IVP SCH ×7 (03:38→20:35)
[2017-01-10] MEDS: *HR* Morphine 2 MG/ML SYRINGE IVP PRN ×3 (04:19→22:08)
[2017-01-10] MEDS: Ipratropium/Albuterol Neb 3 ML IH SCH ×6 (04:22→23:52)
[2017-01-10] MEDS: *HR* Heparin 5,000 UNIT/ML VIAL SQ SCH ×2 (06:26→17:48)
[2017-01-10] MEDS: Beclomethasone 80mcg MDI IH SCH ×2 (08:00→20:19)
[2017-01-10] MEDS: levoFLOXacin 500 MG TABLET PO SCH (09:32)
[2017-01-10] MEDS: Chlorhexidine Rinse 15 ML MOUTHWASH MM SCH ×2 (09:33→20:34)
[2017-01-10] MEDS: Folic Acid 1 MG TABLET PO SCH (09:33)
[2017-01-10] MEDS: Loratadine 10 MG TABLET PO SCH (09:34)
[2017-01-10] MEDS: Thiamine (B-1) 100 MG TABLET PO SCH (09:34)
[2017-01-10] MEDS: predniSONE 20 MG TABLET PO SCH (09:34)
[2017-01-10] MEDS: Sucralfate 1 GM TABLET PO SCH ×4 (09:34→20:34)
[2017-01-10] MEDS: Furosemide 40 MG TABLET PO SCH ×2 (09:34→15:48)
[2017-01-10] MEDS: Vitamin B Complex/Vit C/Vit E 1 EACH TABLET PO SCH (09:34)
[2017-01-10] MEDS: Isosorbide MONOnitrate (24 HR) 30 MG TAB.ER.24H PO SCH (09:35)
[2017-01-10] MEDS: Magnesium Oxide 400 MG TABLET PO SCH ×3 (09:35→20:35)
[2017-01-10] MEDS: Fluticasone Propionate Nasal 50 MCG/SPRAY BOTTLE NS SCH ×2 (09:35→22:12)
[2017-01-10] MEDS: Diltiazem CD (24hr) 240 MG CAPSULE PO SCH (09:35)
[2017-01-10] MEDS: Aspirin Enteric Coated 81 MG Tablet PO SCH (09:35)
[2017-01-10] MEDS ORDERED: *HR* LORazepam 1 MG TABLET PO ONE (11:12)
--- NOTE | 2017-01-10 14:51 | Internal Med Progress Note ---
Date of Encounter: 01/10/17 Time of Encounter: 14:49 - Assessment and plan (1) Withdrawal symptoms, alcohol Current Visit: No Status: Acute Assessment and plan: Possible early alcohol withdrawal. Patient is tremulous. Plan: -We will start patient on Ativan. Noted that patient is allergic to midazolam. In the records it is not mentioned what kind of allergy. I spoke to patient and patient says that he in the past he has taken Ativan. I would like to hold her Librium at this point. We will start with low-dose Ativan. We will observe him very closely via [facility] protocol 01/10/2017 Patient is comfortably lying on the bed. His less tremulous as compared to yesterday. Ativan is appropriately scheduled and he is responding to treatment. We will continue same treatment for now. Please keep close observation. We will maintain fall precautions Qualifiers: Complication of substance-induced condition: with delirium Qualified Code(s ): F10.231 - Alcohol dependence with withdrawal delirium (2) Acute exacerbation of chronic obstructive airways disease Current Visit: No Status: Acute Assessment and plan: Presently on steroids 80 mg every 8 hours. Antibiotics : Levofloxacin Day 3 Bronchodilators. We will continue present treatment. Repeat labs tomorrow. (3) Post-tussive syncope Current Visit: Yes Status: Acute Assessment and plan: Likely secondary to acute exacerbation of COPD with concomittant alcohol use. Patient sustained a left periorbital 1.[address] Head was negative for acute intracranial process. CT Cervical spine revealed no acute abnormalities, multilevel degenerative disc disease with hypertrophic changes. Alcohol level elevated, consistent with patient history. PT 11.6, INR 1.1 PTT 24.9 Influeza and pertussis negative. Neck and shoulder pain likely secondary to trauma after posttussive syncope. Adjusted pain medications. Worsened blurred vision with otherwise essentially normal exam. May consider imaging if worsens, no pain deep in orbit or complete loss of vision. Likely secondary to trauma vs reported history of significant vision correction without current correcting devices. (4) Chest pain Current Visit: No Status: Acute Assessment and plan: Resolved Qualifiers: Chest pain type: unspecified Qualified Code(s): R07.9 - Chest pain, unspecified - Subjective Interval history: Patient seen and examined. Chart reviewed. Patient is tremulous. Patient claims that he was drinking everyday few drinks of hard liquor. Patient claims he knows better from the alcohol and he feels currently he is experiencing that. 01/10/2017 Patient seen and examined. Chart review. He is much less tremulous as compared to yesterday. This is likely delirium tremens. - Constitutional Vitals: Temp Pulse Resp BP Pulse Ox 97.9 F 78 18 112/68 97 01/10/17 11:11 01/10/17 11:11 01/10/17 11:38 01/10/17 11:11 01/10/17 11:38 General appearance: Present: cooperative, A&O X 3, pleasant, no acute distress, obese, answers questions appropriately - Head Head exam: Present: atraumatic, normocephalic - Eye Eye exam: Present: PERRL, conjuntiva pink, sclera anicteric Pupils: Present: PERRL - Neck Neck exam general surgery: Present: supple, trachea midline. Absent: lymphadenopathy - Respiratory Respiratory exam: Present: CTAB. Absent: accessory muscle use, rales, rhonchi, wheezes - Cardiovascular Cardiovascular exam: Present: RRR, +S1, +S2. Absent: diastolic murmur, gallop, rubs, systolic murmur - GI/Abdominal GI/Abdominal exam: Present: normal bowel sounds, soft, no peritoneal signs. Absent: distended, tenderness - Extremities Exam Extremities exam: Present: warm, radial pulses palpable and symetrical. Absent : calf tenderness, cyanotic, pedal edema - Neurological Exam Neurological exam: Present: CN II-XII intact, oriented X3, no focal deficits. Absent: pronater drift, facial droop, speech deficit - Skin Skin exam: Present: dry, intact Internal Medicine: Result - Labs CBC & Chem 7: 01/09/17 04:06 01/09/17 04:06 - ABG Interpretation ABG results: PT/INR, D-dimer PT 11.6 Seconds (9.4-12.1) 01/07/17 05:41 Consult Discharge Plan - Plan Referrals: NO,PCP [Primary Care Provider] -
[2017-01-10] MEDS: Thiamine (B-1) 100 MG, Folic Acid 1 MG, MVI, adult with vitamin K 10 ML in 0.9 % Sodi... IVPB SCH (17:49)
[2017-01-10] MEDS: *HR* HYDROcodone/Acet 5/325 mg TABLET PO PRN (19:44)
[2017-01-10] MEDS: Cyanocobalamin (B-12) 1,000 MCG TABLET PO SCH (20:34)
[2017-01-10] MEDS: Melatonin 3 MG TABLET PO SCH (20:35)
[2017-01-11] MEDS: *HR* HYDROcodone/Acet 5/325 mg TABLET PO PRN ×5 (00:05→23:58)
[2017-01-11] MEDS: *HR* LORazepam 2 MG/ML VIAL IVP SCH ×4 (00:05→13:14)
[2017-01-11] MEDS: *HR* Morphine 2 MG/ML SYRINGE IVP PRN ×4 (02:35→20:29)
[2017-01-11] MEDS: Ipratropium/Albuterol Neb 3 ML IH SCH ×6 (04:06→23:49)
[2017-01-11] MEDS: *HR* Heparin 5,000 UNIT/ML VIAL SQ SCH ×2 (06:56→17:45)
[2017-01-11] MEDS: Beclomethasone 80mcg MDI IH SCH ×2 (07:51→19:54)
[2017-01-11] MEDS: Magnesium Oxide 400 MG TABLET PO SCH ×3 (08:29→20:29)
[2017-01-11] MEDS: levoFLOXacin 500 MG TABLET PO SCH (08:29)
[2017-01-11] MEDS: Isosorbide MONOnitrate (24 HR) 30 MG TAB.ER.24H PO SCH (08:30)
[2017-01-11] MEDS: Vitamin B Complex/Vit C/Vit E 1 EACH TABLET PO SCH (08:31)
[2017-01-11] MEDS: predniSONE 20 MG TABLET PO SCH (08:31)
[2017-01-11] MEDS: Diltiazem CD (24hr) 240 MG CAPSULE PO SCH (08:31)
[2017-01-11] MEDS: Folic Acid 1 MG TABLET PO SCH (08:31)
[2017-01-11] MEDS: Furosemide 40 MG TABLET PO SCH ×2 (08:33→17:45)
[2017-01-11] MEDS: Sucralfate 1 GM TABLET PO SCH ×4 (08:33→20:29)
[2017-01-11] MEDS: Aspirin Enteric Coated 81 MG Tablet PO SCH (08:33)
[2017-01-11] MEDS: Thiamine (B-1) 100 MG TABLET PO SCH (08:35)
[2017-01-11] MEDS: Loratadine 10 MG TABLET PO SCH (08:35)
[2017-01-11] MEDS: Chlorhexidine Rinse 15 ML MOUTHWASH MM SCH ×2 (08:36→20:29)
[2017-01-11] MEDS: Fluticasone Propionate Nasal 50 MCG/SPRAY BOTTLE NS SCH ×2 (08:36→20:30)
--- NOTE | 2017-01-11 10:39 | Internal Med Progress Note ---
<Ruth Acosta - Last Filed: 01/11/17 16:24> Date of Encounter: 01/11/17 Time of Encounter: 09:50 - Assessment and plan (1) Withdrawal symptoms, alcohol Current Visit: No Status: Acute Assessment and plan: Suspect early alcohol withdrawal. Patient affirms 1 bottle bourbon during drinking spells. Cont MVI Cont CIWA protocol Qualifiers: Complication of substance-induced condition: with delirium Qualified Code(s ): F10.231 - Alcohol dependence with withdrawal delirium (2) Acute exacerbation of chronic obstructive pulmonary disease (COPD) Current Visit: Yes Status: Acute Assessment and plan: Patient with known history of COPD on continuous 3L oxygen and asthma, reportedly with cough over the past 6 months, and acute worsening over the past month with significant coughing spells presents from [place] nursing facility after syncopal episode and left orbital laceration. Cont Levaquin monotherapy, prednisone 40 QD. INfluenza A/B/H1N1, pertussis negative. (3) Post-tussive syncope Current Visit: Yes Status: Acute Assessment and plan: Likely secondary to acute exacerbation of COPD with concomittant alcohol use. Patient sustained a left periorbital 1.[address] Head was negative for acute intracranial process. CT Cervical spine revealed no acute abnormalities, multilevel degenerative disc disease with hypertrophic changes. Alcohol level elevated, consistent with patient history. PT 11.6, INR 1.1 PTT 24.9 Influeza and pertussis negative. Neck and shoulder pain likely secondary to trauma after posttussive syncope. Adjusted pain medications. Worsened blurred vision with otherwise essentially normal exam. May consider imaging if worsens, no pain deep in orbit or complete loss of vision. Likely secondary to trauma vs reported history of significant vision correction without current correcting devices. - Subjective Interval history: Pt seen/eval, endorses events prompting hospitalization, with productive cough, coughing episodes which lead to facial trauma. Heavy etoh use, about 1 bottle of bourbon, smokes about 1pack for 3 days since his teens, [employer] . Mildly jittery but not agitated. - Constitutional Vitals: Temp Pulse Resp BP Pulse Ox 97.8 F 81 20 124/80 95 01/11/17 08:03 01/11/17 08:03 01/11/17 08:03 01/11/17 08:03 01/11/17 08:51 General appearance: Present: cooperative, A&O X 3, pleasant, answers questions appropriately - Head Head exam: Present: normocephalic Additional comments: left periorbital swelling, with healed suture line, EOMI - Eye Eye exam: Present: EOMI, sclera anicteric - ENT ENT exam: Present: mucous membranes moist - Neck Neck exam general surgery: Present: supple, trachea midline - Respiratory Respiratory exam: Present: decreased breath sounds, prolonged expiratory phase, wheezes. Absent: tachypnea - Cardiovascular Cardiovascular exam: Present: +S1, +S2. Absent: RRR - GI/Abdominal GI/Abdominal exam: Present: soft, no peritoneal signs. Absent: tenderness - Extremities Exam Extremities exam: Present: warm, radial pulses palpable and symetrical Internal Medicine: Result - Labs CBC & Chem 7: 01/09/17 04:06 01/09/17 04:06 - ABG Interpretation ABG results: PT/INR, D-dimer PT 11.6 Seconds (9.4-12.1) 01/07/17 05:41 Consult Discharge Plan - Plan Referrals: NO,PCP [Primary Care Provider] - <Bubba Holm P - Last Filed: 01/11/17 19:01> Date of Encounter: 01/11/17 - Assessment and plan (1) Withdrawal symptoms, alcohol Current Visit: No Status: Acute Qualifiers: Complication of substance-induced condition: with delirium Qualified Code(s ): F10.231 - Alcohol dependence with withdrawal delirium (2) Acute exacerbation of chronic obstructive airways disease Current Visit: No Status: Acute (3) Post-tussive syncope Current Visit: Yes Status: Acute (4) Chest pain Current Visit: No Status: Acute Qualifiers: Chest pain type: unspecified Qualified Code(s): R07.9 - Chest pain, unspecified - Constitutional Vitals: Temp Pulse Resp BP Pulse Ox 97.6 F 77 16 101/50 96 01/11/17 15:30 01/11/17 15:30 01/11/17 16:16 01/11/17 15:30 01/11/17 16:16 Internal Medicine: Result - Labs CBC & Chem 7: 01/09/17 04:06 01/09/17 04:06 - ABG Interpretation ABG results: PT/INR, D-dimer PT 11.6 Seconds (9.4-12.1) 01/07/17 05:41 - Attending Attestation I examined this patient and my medical decision-making was reviewed with the TEST PULLER/PA/Advanced Practice Nurse/Resident Physician. I agree with the documented findings, disposition and treatment plan as described except to the extent set forth below.
[2017-01-11] MEDS: Baclofen 10 MG TABLET PO PRN (17:47)
[2017-01-11] MEDS: Melatonin 3 MG TABLET PO SCH (20:29)
[2017-01-11] MEDS: Cyanocobalamin (B-12) 1,000 MCG TABLET PO SCH (20:29)
[2017-01-12] MEDS ORDERED: Water for inj. (sterile) 10 ML IV ONE (00:04)
[2017-01-12] MEDS: *HR* LORazepam 2 MG/ML VIAL IVP PRN (00:08)
[2017-01-12] MEDS: Ipratropium/Albuterol Neb 3 ML IH SCH ×6 (03:56→23:19)
[2017-01-12] MEDS: *HR* Heparin 5,000 UNIT/ML VIAL SQ SCH ×2 (05:31→16:32)
[2017-01-12] MEDS: *HR* Morphine 2 MG/ML SYRINGE IVP PRN ×3 (06:07→21:14)
[2017-01-12 06:22] LABS: Basophils % 0.3 %; Eosinophils # 0.2 K/mcL (0.0-0.6); Eosinophils % 1.7 %; Hematocrit 40.7 % (37.5-50.1); Hemoglobin 13.4 g/dL (12.9-16.9); Immature Granulocytes % 1.7 % (0-4); Lymphocytes # 2.8 K/mcL (0.6-4.6); Lymphocytes % 29.4 %; Mean Corpuscular HGB Conc 32.9 g/dL (31.6-35.5); Mean Corpuscular Hemoglobin 32.2 pg (28.0-33.3); Mean Corpuscular Volume 97.8 fL (83.0-100.0); Mean Platelet Volume 10.2 fL (9.4-12.4); Monocytes # 0.6 K/mcL (0.0-1.3); Monocytes % 6.1 %; Neutrophils # 5.8 K/mcL (1.6-8.9); Nucleated Red Blood Cells 0.5 /100 WBC (0); Platelet Count 239 K/mcL (140-400); Red Blood Count 4.16 M/mcL (4.19-5.50); Red Cell Distribution Width 12.3 % (11.5-14.5); Segmented Neutrophils % 60.8 %
[2017-01-12 06:34] LABS: BUN/Creatinine Ratio 32 (6-26); Blood Urea Nitrogen 30 mg/dL (8-26); Calcium 8.9 mg/dL (8.6-10.8); Carbon Dioxide 26 mEq/L (19-29); Chloride 103 mEq/L (98-109); Glucose 98 mg/dL (70-99); Osmolality,Calculated 294 (280-300); Potassium 4.4 mEq/L (3.5-4.5); Sodium 139 mEq/L (136-145); eGFR For African Americans > 60 (> 60); eGFR For Non-African Americans > 60 (> 60)
[2017-01-12] MEDS: Beclomethasone 80mcg MDI IH SCH ×2 (07:54→20:15)
[2017-01-12] MEDS: Chlorhexidine Rinse 15 ML MOUTHWASH MM SCH ×2 (09:08→21:13)
[2017-01-12] MEDS: predniSONE 20 MG TABLET PO SCH (09:08)
[2017-01-12] MEDS: Vitamin B Complex/Vit C/Vit E 1 EACH TABLET PO SCH (09:09)
[2017-01-12] MEDS: Sucralfate 1 GM TABLET PO SCH ×3 (09:09→21:13)
[2017-01-12] MEDS: Isosorbide MONOnitrate (24 HR) 30 MG TAB.ER.24H PO SCH (09:09)
[2017-01-12] MEDS: Loratadine 10 MG TABLET PO SCH (09:09)
[2017-01-12] MEDS: Thiamine (B-1) 100 MG TABLET PO SCH (09:09)
[2017-01-12] MEDS: Magnesium Oxide 400 MG TABLET PO SCH ×3 (09:09→21:13)
[2017-01-12] MEDS: Folic Acid 1 MG TABLET PO SCH (09:10)
[2017-01-12] MEDS: Aspirin Enteric Coated 81 MG Tablet PO SCH (09:10)
[2017-01-12] MEDS: levoFLOXacin 500 MG TABLET PO SCH (09:10)
[2017-01-12] MEDS: Diltiazem CD (24hr) 240 MG CAPSULE PO SCH (09:10)
[2017-01-12] MEDS: Furosemide 40 MG TABLET PO SCH ×2 (09:10→16:32)
[2017-01-12] MEDS: Fluticasone Propionate Nasal 50 MCG/SPRAY BOTTLE NS SCH ×2 (09:11→21:14)
[2017-01-12] MEDS: *HR* HYDROcodone/Acet 5/325 mg TABLET PO PRN ×2 (09:19→13:22)
--- NOTE | 2017-01-12 10:00 | Internal Med Progress Note ---
<Ruth Acosta - Last Filed: 01/12/17 17:16> Date of Encounter: 01/12/17 Time of Encounter: 09:30 - Assessment and plan (1) Withdrawal symptoms, alcohol Current Visit: No Status: Acute Assessment and plan: Suspect early alcohol withdrawal. Patient affirms 1 bottle bourbon during drinking spells. Cont MVI Cont CIWA protocol Improved, appreciate SW input to eval for rehab placement Qualifiers: Complication of substance-induced condition: with delirium Qualified Code(s ): F10.231 - Alcohol dependence with withdrawal delirium (2) Acute exacerbation of chronic obstructive pulmonary disease (COPD) Current Visit: Yes Status: Acute Assessment and plan: Patient with known history of COPD on continuous 3L oxygen and asthma, reportedly with cough over the past 6 months, and acute worsening over the past month with significant coughing spells presents [facility] [place] [facility] after syncopal episode and left orbital laceration. Cont Levaquin monotherapy, prednisone 40 QD. INfluenza A/B/H1N1, pertussis negative. (3) Post-tussive syncope Current Visit: Yes Status: Acute Assessment and plan: Likely secondary to acute exacerbation of COPD with concomittant alcohol use. Patient sustained a left periorbital 1.[address] Head was negative for acute intracranial process. CT Cervical spine revealed no acute abnormalities, multilevel degenerative disc disease with hypertrophic changes. Alcohol level elevated, consistent with patient history. PT 11.6, INR 1.1 PTT 24.9 Influeza and pertussis negative. Neck and shoulder pain likely secondary to trauma after posttussive syncope. Adjusted pain medications. - Subjective Interval history: Pt seen/eval, overnight he would have improvement of CIWA scoring. He continues to have a nonproductive cough. Improved swelling at left orbital site, agreeable to rehab and awaiting placement. He does endorse back pain. No f/c/ nvd. - Constitutional Vitals: Temp Pulse Resp BP Pulse Ox 97.9 F 71 16 121/81 96 01/12/17 07:08 01/12/17 07:08 01/12/17 07:08 01/12/17 07:08 01/12/17 09:38 General appearance: Present: cooperative, A&O X 3, pleasant, answers questions appropriately - Head Head exam: Present: normocephalic Additional comments: Left orbital region with suture, improved swelling. - Eye Eye exam: Present: EOMI, sclera anicteric - ENT ENT exam: Present: mucous membranes moist - Neck Neck exam general surgery: Present: supple, trachea midline - Respiratory Respiratory exam: Present: rhonchi. Absent: accessory muscle use, wheezes - Cardiovascular Cardiovascular exam: Present: +S1, +S2. Absent: JVD - GI/Abdominal GI/Abdominal exam: Present: distended (non-tympanic), soft, no peritoneal signs. Absent: tenderness - Extremities Exam Extremities exam: Present: warm, radial pulses palpable and symetrical Internal Medicine: Result - Labs CBC & Chem 7: 01/12/17 05:48 01/12/17 05:48 Labs: Short CBC 01/12/17 Range/Units 05:48 WBC 9.5 (4.3-11.1) K/mcL Hgb 13.4 (12.9-16.9) g/dL Hct 40.7 (37.5-50.1) % Plt Count 239 (140-400) K/mcL Neutrophils # 5.8 (1.6-8.9) K/mcL BMP 01/12/17 05:48 Sodium 139 Potassium 4.4 Chloride 103 Carbon Dioxide 26 BUN 30 H Creatinine 0.93 Glucose 98 Calcium 8.9 - ABG Interpretation ABG results: PT/INR, D-dimer PT 11.6 Seconds (9.4-12.1) 01/07/17 05:41 Consult Discharge Plan - Plan Referrals: NO,PCP [Primary Care Provider] - <Harris Ma - Last Filed: 01/12/17 18:24> Date of Encounter: 01/12/17 - Assessment and plan (1) Acute and chronic respiratory failure Current Visit: Yes Status: Acute Assessment and plan: Continue supportive care and wean oxygen as able. Qualifiers: Respiratory failure complication: hypoxia Qualified Code(s): J96.21 - Acute and chronic respiratory failure with hypoxia (2) Acute exacerbation of chronic obstructive pulmonary disease (COPD) Current Visit: Yes Status: Acute (3) Post-tussive syncope Current Visit: Yes Status: Acute (4) ETOH abuse Current Visit: No Status: Chronic Assessment and plan: CIWA protocol. (5) Afib Current Visit: Yes Status: Chronic Assessment and plan: Currently normal sinus rhythm. Continue meds as is for now. Qualifiers: Atrial fibrillation type: paroxysmal Qualified Code(s): I48.0 - Paroxysmal atrial fibrillation (6) CAD (coronary artery disease) Current Visit: Yes Status: Chronic Assessment and plan: Continue home medications for chronic disease management. Qualifiers: Coronary Disease-Associated Artery/Lesion type: unspecified vessel or lesion type [place] vs. transplanted heart: hoh heart Associated angina: without angina Qualified Code(s): I25.10 - Atherosclerotic heart disease of hoh coronary artery without angina pectoris - Constitutional Vitals: Temp Pulse Resp BP Pulse Ox 98.5 F 77 16 106/77 96 01/12/17 15:48 01/12/17 15:48 01/12/17 15:48 01/12/17 15:48 01/12/17 15:48 Internal Medicine: Result - Labs CBC & Chem 7: 01/12/17 05:48 01/12/17 05:48 Labs: Short CBC 01/12/17 Range/Units 05:48 WBC 9.5 (4.3-11.1) K/mcL Hgb 13.4 (12.9-16.9) g/dL Hct 40.7 (37.5-50.1) % Plt Count 239 (140-400) K/mcL Neutrophils # 5.8 (1.6-8.9) K/mcL BMP 01/12/17 05:48 Sodium 139 Potassium 4.4 Chloride 103 Carbon Dioxide 26 BUN 30 H Creatinine 0.93 Glucose 98 Calcium 8.9 - ABG Interpretation ABG results: PT/INR, D-dimer PT 11.6 Seconds (9.4-12.1) 01/07/17 05:41 - Attending Attestation I examined this patient and my medical decision-making was reviewed with the Resident Physician on 01/12/17. I agree with the documented findings, disposition and treatment plan as described except to the extent set forth below. Mr. Salmon is currently admitted for acute exac COPD and acute ETOH withdrawal. He remains moderate to high risk due to potential for worsening resp status and alcohol issues. Mr. Salmon is resting comfortably. Still with some wheezing. No fever or chills. No GI symptoms. Exam Alert. Comfortable in bed Heart reg Lungs with wheeze throughout Abd soft No edema Mucus membranes moist. I/P 1. Acute on chronic resp failure with hypoxia 2. Acute exac COPD 3. ETOH withdrawal Further diagnoses and plan as above.
[2017-01-12] MEDS: Cyanocobalamin (B-12) 1,000 MCG TABLET PO SCH (21:13)
[2017-01-12] MEDS: Melatonin 3 MG TABLET PO SCH (21:13)
[2017-01-13] MEDS: *HR* Morphine 2 MG/ML SYRINGE IVP PRN ×2 (02:03→14:42)
[2017-01-13] MEDS: Ipratropium/Albuterol Neb 3 ML IH SCH ×5 (03:41→20:39)
[2017-01-13] MEDS: *HR* Heparin 5,000 UNIT/ML VIAL SQ SCH ×2 (05:10→18:22)
[2017-01-13 06:16] LABS: Basophils % 0.2 %; Eosinophils # 0.2 K/mcL (0.0-0.6); Eosinophils % 1.6 %; Hematocrit 40.1 % (37.5-50.1); Hemoglobin 13.3 g/dL (12.9-16.9); Immature Granulocytes % 1.1 % (0-4); Lymphocytes # 2.6 K/mcL (0.6-4.6); Lymphocytes % 24.1 %; Mean Corpuscular HGB Conc 33.2 g/dL (31.6-35.5); Mean Corpuscular Hemoglobin 33.1 pg (28.0-33.3); Mean Corpuscular Volume 99.8 fL (83.0-100.0); Mean Platelet Volume 10.1 fL (9.4-12.4); Monocytes # 0.8 K/mcL (0.0-1.3); Monocytes % 7.3 %; Neutrophils # 7.2 K/mcL (1.6-8.9); Platelet Count 208 K/mcL (140-400); Red Blood Count 4.02 M/mcL (4.19-5.50); Red Cell Distribution Width 12.4 % (11.5-14.5); Segmented Neutrophils % 65.7 %
[2017-01-13 06:44] LABS: BUN/Creatinine Ratio 31 (6-26); Blood Urea Nitrogen 28 mg/dL (8-26); Calcium 9.2 mg/dL (8.6-10.8); Carbon Dioxide 29 mEq/L (19-29); Chloride 101 mEq/L (98-109); Glucose 105 mg/dL (70-99); Magnesium 1.8 mg/dL (1.6-2.6); Osmolality,Calculated 294 (280-300); Sodium 139 mEq/L (136-145); eGFR For African Americans > 60 (> 60); eGFR For Non-African Americans > 60 (> 60)
[2017-01-13] MEDS: Beclomethasone 80mcg MDI IH SCH ×2 (07:45→20:39)
[2017-01-13] MEDS: Magnesium Oxide 400 MG TABLET PO SCH ×3 (08:26→20:12)
[2017-01-13] MEDS: Chlorhexidine Rinse 15 ML MOUTHWASH MM SCH ×2 (08:26→20:12)
[2017-01-13] MEDS: Furosemide 40 MG TABLET PO SCH ×2 (08:26→16:03)
[2017-01-13] MEDS: Diltiazem CD (24hr) 240 MG CAPSULE PO SCH (08:26)
[2017-01-13] MEDS: Vitamin B Complex/Vit C/Vit E 1 EACH TABLET PO SCH (08:27)
[2017-01-13] MEDS: Aspirin Enteric Coated 81 MG Tablet PO SCH (08:27)
[2017-01-13] MEDS: Loratadine 10 MG TABLET PO SCH (08:27)
[2017-01-13] MEDS: predniSONE 20 MG TABLET PO SCH (08:27)
[2017-01-13] MEDS: Folic Acid 1 MG TABLET PO SCH (08:27)
[2017-01-13] MEDS: Thiamine (B-1) 100 MG TABLET PO SCH (08:28)
[2017-01-13] MEDS: Fluticasone Propionate Nasal 50 MCG/SPRAY BOTTLE NS SCH ×2 (08:28→20:13)
[2017-01-13] MEDS: Isosorbide MONOnitrate (24 HR) 30 MG TAB.ER.24H PO SCH (08:28)
[2017-01-13] MEDS: Sucralfate 1 GM TABLET PO SCH ×4 (08:28→20:16)
[2017-01-13] MEDS: *HR* HYDROcodone/Acet 5/325 mg TABLET PO PRN ×2 (08:34→20:12)
--- NOTE | 2017-01-13 10:15 | Discharge Summary ---
Date of Encounter: 01/14/17 Time of Encounter: 10:00 - Discharge Diagnosis (1) Withdrawal symptoms, alcohol Priority: Primary Status: Acute Qualifiers: Complication of substance-induced condition: with delirium Qualified Code(s ): F10.231 - Alcohol dependence with withdrawal delirium (2) Acute exacerbation of chronic obstructive pulmonary disease (COPD) Priority: Primary Status: Acute (3) Post-tussive syncope Priority: Secondary Status: Acute - Discharge Medications Prescriptions: Vitamin B Complex/Vit C/Vit E [Stresstab] 1 each PO DAILY #30 tablet Home Medications: Albuterol Sulfate [Albuterol Inhaler] 2 puff IH Q4-6H PRN 05/07/15 [History] Folic Acid 1 mg PO DAILY 05/07/15 [History] Isosorbide MONOnitrate [Isosorbide Mononitrate ER] 30 mg PO DAILY 05/07/15 [ History] Omeprazole [PriLOSEC] 20 mg PO BID 05/07/15 [History] Thiamine HCl [Vitamin B-1] 100 mg PO DAILY 05/07/15 [History] Albuterol Neb [Proventil Neb] 2.5 mg IH Q4H PRN 04/24/16 [History] Sucralfate [Carafate] 1 gm PO QID 04/24/16 [History] Potassium Chloride 20 meq PO DAILY 30 Days 04/28/16 [Rx] Mometasone Furoate [Asmanex] 2 puff IH BID 06/30/16 [History] Phenytoin ER [Dilantin ER] 200 mg PO QAM 06/30/16 [History] Aspirin [Lo-Dose Aspirin EC] 81 mg PO DAILY 09/30/16 [History] Buspirone HCl [Buspar] 2.5 mg PO DAILY 09/30/16 [History] Cyanocobalamin (Vitamin B-12) [Vitamin B-12] 100 mcg PO HS 09/30/16 [History] Diltiazem HCl [Diltiazem 24Hr Cd] 240 mg PO DAILY 09/30/16 [History] Ferrous Gluconate 324 mg PO DAILY 09/30/16 [History] Furosemide [Lasix] 40 mg PO AD 09/30/16 [History] Melatonin 6 mg PO HS 09/30/16 [History] Olodaterol HCl [Striverdi Respimat] 2 puff IH DAILY 09/30/16 [History] Sertraline [Zoloft] 50 mg PO QAM 09/30/16 [History] Baclofen [Lioresal] 10 mg PO Q6H PRN 01/06/17 [History] Chlorhexidine Gluconate [Peridex] 15 ml MM BID 01/06/17 [History] Fluticasone Propionate Nasal [Flonase] 50 mcg NS BID 01/06/17 [History] HydrOXYzine 10 mg PO Q6H PRN 01/06/17 [History] Ibuprofen [Motrin] 400 mg PO Q6H PRN 01/06/17 [History] Ipratropium/Albuterol Neb [Duoneb] 3 ml IH Q4H 01/06/17 [History] Lisinopril [Zestril] 2.5 mg PO DAILY 01/06/17 [History] Loratadine [Claritin] 10 mg PO DAILY 01/06/17 [History] Magnesium Oxide [Mag-Ox] 400 mg PO TID 01/06/17 [History] Oxygen 2 l NS AD 01/06/17 [History] PredniSONE 40 mg PO DAILY 01/06/17 [History] TraZODone 25 mg PO HS 01/06/17 [History] Vitamin B Complex/Vit C/Vit E [Stresstab] 1 each PO DAILY #30 tablet 01/13/17 [ Rx] Allergies/Adverse Reactions: Allergies Penicillins Allergy (Severe, Verified 01/06/17 20:52) Anaphylaxis diphenhydramine Allergy (Verified 01/06/17 20:52) See Comments fentanyl Allergy (Verified 01/06/17 20:52) See Comments lidocaine Allergy (Verified 01/06/17 20:52) See Comments midazolam Allergy (Verified 01/06/17 20:52) See Comments venlafaxine [From Effexor] Adverse Reaction (Unknown, Verified 01/06/17 20:52) See Comments "Made me go into a coma." Date of admission: 01/09/17 16:10 Primary care physician: PCP NO Consults: 01/09/17 17:00 Consult to Senior Research Manager [CONS] Routine Reason for SW Consult: ETOH 01/09/17 17:23 Consult to Senior Research Manager [CONS] Routine Reason for SW Consult: alcoholism 01/13/17 10:09 Consult to Occupational Therapy [CONS] Routine Comment: weakness, unsteady gait, heavy etoh use Consult to Physical Therapy [CONS] Routine Comment: weakness, unsteady gait, heavy etoh use Discharging clinician: Harris Ma Anticipated date of discharge: 01/14/17 - Patient Status Condition: Undetermined - Discharge Instructions Instructions: Heart Failure (DC), Atrial Fibrillation (DC), Chest Pain (DC), Acute Respiratory Distress Syndrome (DC), Cirrhosis (DC), Cirrhosis (GEN), Urinary Tract Infection in Men (DC), Chronic Obstructive Pulmonary Disease (DC) , Non-epileptic Seizures (DC), Non-epileptic Seizures (GEN), Alcohol Intoxication (DC), Alcohol Intoxication (GEN), Abuse of Alcohol (DC), Abuse of Alcohol (GEN), At-Risk Alcohol Use (DC), At-Risk Alcohol Use (GEN), Cigarette Smoking and Your Health, School Psychometrist (GEN) Follow Up With: NO,PCP [Primary Care Provider] - Hospital course: Mr. Salmon is a 71 year old male. Patient would present to [facility] with chief concern: fall following coughing spells, in setting of heavy alcohol use. Comorbidities would include: COPD, cirrhosis, CAD, depression, panic disorder. Hospital course: Initial concern for trauma around left periorbital region. Imaging studies: Cervical Spine CT 01/06/17 21:21 IMPRESSION: No acute abnormality of the cervical spine. Severe multilevel degenerative disc disease and hypertrophic changes. Head CT 01/06/17 21:21 IMPRESSION: No acute intracranial abnormality. He would have CXR disclosing: Chest X-Ray 01/06/17 20:59 IMPRESSION: 1. Subsegmental bibasilar atelectatic changes 2. No acute abnormalities are seen in the chest Started on empiric therapy and prednisone for COPD exacerbation. INfluenza A/B/H1N1, pertussis negative. Neck and shoulder pain likely secondary to trauma after posttussive syncope. Adjusted pain medications. Patient was started on CIWA protocol and did improve to date of discharge. Finished course COPD exacerbation 5 day course levaquin and prednisone. Concern for unsteady gait, prompted PT//OT eval. At time of discharge, patient was clinically improved, hemodynamically stable, progressing to baseline, and agreeable with plan of care. Patient was advised to seek immediate medical attention for any new or worsening symptoms including but not limited to fever, chills, chest pain, chest pressure, dyspnea, cough, abdominal pain, nausea, vomiting, diarrhea, bloody stool, urine and the patient voiced understanding. Patient will follow-up with primary care physician: at [facility]. - Time Spent with Patient Total time spent providing and/or coordinating discharge services: Greater than 30 minutes - Constitutional Vitals: Temp Pulse Resp BP Pulse Ox 97.9 F 83 20 129/71 92 01/13/17 06:34 01/13/17 06:34 01/13/17 07:45 01/13/17 06:34 01/13/17 07:45 General appearance: Present: cooperative, A&O X 3, pleasant, answers questions appropriately - Head Head exam: Present: atraumatic, normocephalic - Eye Eye exam: Present: EOMI, sclera anicteric - ENT ENT exam: Present: mucous membranes moist - Neck Neck exam general surgery: Present: supple, trachea midline - Respiratory Respiratory exam: Present: prolonged expiratory phase. Absent: rhonchi, wheezes - Cardiovascular Cardiovascular exam: Present: +S1, +S2. Absent: JVD - GI/Abdominal GI/Abdominal exam: Present: soft, no peritoneal signs. Absent: tenderness - Extremities Exam Extremities exam: Present: warm, radial pulses palpable and symetrical. Absent : pedal edema - Neurological Exam Neurological exam: Present: abnormal gait, strengths equal and symetr throughout
--- NOTE | 2017-01-13 15:56 | Internal Med Progress Note ---
<Ruth Acosta - Last Filed: 01/13/17 15:54> Date of Encounter: 01/13/17 Time of Encounter: 09:00 - Assessment and plan (1) Withdrawal symptoms, alcohol Current Visit: No Status: Acute Assessment and plan: Suspect early alcohol withdrawal. Patient affirms 1 bottle bourbon during drinking spells. Cont MVI Cont CIWA protocol Improved, appreciate SW input, plan for [place] rehab. Unsteady gait, consult placed to PT/OT, appreciate recs. Qualifiers: Complication of substance-induced condition: with delirium Qualified Code(s ): F10.231 - Alcohol dependence with withdrawal delirium (2) Acute exacerbation of chronic obstructive pulmonary disease (COPD) Current Visit: Yes Status: Acute Assessment and plan: Patient with known history of COPD on continuous 3L oxygen and asthma, reportedly with cough over the past 6 months, and acute worsening over the past month with significant coughing spells presents from [place] [facility] after syncopal episode and left orbital laceration. Finished 5 day course Levaquin monotherapy, prednisone 40 QD. INfluenza A/B/H1N1, pertussis negative. (3) Post-tussive syncope Current Visit: Yes Status: Acute Assessment and plan: Likely secondary to acute exacerbation of COPD with concomittant alcohol use. Patient sustained a left periorbital 1.[address] Head was negative for acute intracranial process. CT Cervical spine revealed no acute abnormalities, multilevel degenerative disc disease with hypertrophic changes. Alcohol level elevated, consistent with patient history. PT 11.6, INR 1.1 PTT 24.9 Influeza and pertussis negative. Neck and shoulder pain likely secondary to trauma after posttussive syncope. Adjusted pain medications. - Subjective Interval history: Pt seen/eval, he is improved on CIWA protocol. Denies any chest pain/pressure. Does feel somewhat unsteady on his feet. - Constitutional Vitals: Temp Pulse Resp BP Pulse Ox 99 F 62 16 86/52 98 01/13/17 15:31 01/13/17 15:31 01/13/17 15:31 01/13/17 15:31 01/13/17 15:31 General appearance: Present: cooperative, A&O X 3, pleasant, answers questions appropriately - Head Head exam: Present: normocephalic Additional comments: left periorbital region residual swelling, improved - Eye Eye exam: Present: EOMI, sclera anicteric - ENT ENT exam: Present: mucous membranes moist - Neck Neck exam general surgery: Present: supple, trachea midline - Respiratory Respiratory exam: Absent: rhonchi, wheezes - Cardiovascular Cardiovascular exam: Present: +S1, +S2. Absent: JVD - GI/Abdominal GI/Abdominal exam: Present: no peritoneal signs. Absent: tenderness - Extremities Exam Extremities exam: Present: warm, radial pulses palpable and symetrical. Absent : pedal edema Internal Medicine: Result - Labs CBC & Chem 7: 01/13/17 05:37 01/13/17 05:37 Labs: Short CBC 01/13/17 Range/Units 05:37 WBC 11.0 (4.3-11.1) K/mcL Hgb 13.3 (12.9-16.9) g/dL Hct 40.1 (37.5-50.1) % Plt Count 208 (140-400) K/mcL Neutrophils # 7.2 (1.6-8.9) K/mcL BMP 01/13/17 05:37 Sodium 139 Potassium 4.0 Chloride 101 Carbon Dioxide 29 BUN 28 H Creatinine 0.89 Glucose 105 H Calcium 9.2 - ABG Interpretation ABG results: PT/INR, D-dimer PT 11.6 Seconds (9.4-12.1) 01/07/17 05:41 Consult Discharge Plan - Plan Instructions: Heart Failure (DC), Atrial Fibrillation (DC), Chest Pain (DC), Acute Respiratory Distress Syndrome (DC), Cirrhosis (DC), Cirrhosis (GEN), Urinary Tract Infection in Men (DC), Chronic Obstructive Pulmonary Disease (DC) , Non-epileptic Seizures (DC), Non-epileptic Seizures (GEN), Alcohol Intoxication (DC), Alcohol Intoxication (GEN), Abuse of Alcohol (DC), Abuse of Alcohol (GEN), At-Risk Alcohol Use (DC), At-Risk Alcohol Use (GEN), Cigarette Smoking and Your Health, Backend Developer (GEN) Referrals: NO,PCP [Primary Care Provider] - Prescriptions: Vitamin B Complex/Vit C/Vit E [Stresstab] 1 each PO DAILY #30 tablet <Harris Ma - Last Filed: 01/13/17 17:29> Date of Encounter: 01/13/17 - Assessment and plan (1) Acute and chronic respiratory failure Current Visit: Yes Status: Acute Assessment and plan: Continue management of COPD and wean oxygen as able. Qualifiers: Respiratory failure complication: hypoxia Qualified Code(s): J96.21 - Acute and chronic respiratory failure with hypoxia (2) Acute exacerbation of chronic obstructive pulmonary disease (COPD) Current Visit: Yes Status: Acute (3) Post-tussive syncope Current Visit: Yes Status: Acute (4) ETOH abuse Current Visit: No Status: Chronic (5) Afib Current Visit: Yes Status: Chronic Qualifiers: Atrial fibrillation type: paroxysmal Qualified Code(s): I48.0 - Paroxysmal atrial fibrillation (6) CAD (coronary artery disease) Current Visit: Yes Status: Chronic Qualifiers: Coronary Disease-Associated Artery/Lesion type: unspecified vessel or lesion type [place] vs. transplanted heart: [place] heart Associated angina: without angina Qualified Code(s): I25.10 - Atherosclerotic heart disease of [place] coronary artery without angina pectoris (7) Obesity (BMI 30-39.9) Current Visit: Yes Status: Acute - Constitutional Vitals: Temp Pulse Resp BP Pulse Ox 99 F 62 16 86/52 98 01/13/17 15:31 01/13/17 15:31 01/13/17 15:31 01/13/17 15:31 01/13/17 15:31 Internal Medicine: Result - Labs CBC & Chem 7: 01/13/17 05:37 01/13/17 05:37 Labs: Short CBC 01/13/17 Range/Units 05:37 WBC 11.0 (4.3-11.1) K/mcL Hgb 13.3 (12.9-16.9) g/dL Hct 40.1 (37.5-50.1) % Plt Count 208 (140-400) K/mcL Neutrophils # 7.2 (1.6-8.9) K/mcL BMP 01/13/17 05:37 Sodium 139 Potassium 4.0 Chloride 101 Carbon Dioxide 29 BUN 28 H Creatinine 0.89 Glucose 105 H Calcium 9.2 - ABG Interpretation ABG results: PT/INR, D-dimer PT 11.6 Seconds (9.4-12.1) 01/07/17 05:41 - Attending Attestation I examined this patient and my medical decision-making was reviewed with the Resident Physician on 01/13/17. I agree with the documented findings, disposition and treatment plan as described except to the extent set forth below. Mr. Salmon is currently admitted for acute exac COPD and etoh withdrawal with fall. He is high risk due to potential for worsening respiratory status as well as worsening ETOH symptoms. Mr. Salmon is resting in bed. Denies new issues overnight. Somewhat shaky at this time. No fever or chills. Breathing somewhat better and approaching baseline. Seen by PT and rec SNF. Exam Alert. Comfortable Heart reg Lungs with scant end exp wheeze - clearer than yesterday. Abd obese. I/P 1. Acute exac COPD 2. ETOH withdrawal Further diagnoses and plan as above. Anticipate d/c to SNF tomorrow.
[2017-01-13] MEDS: Melatonin 3 MG TABLET PO SCH (20:12)
[2017-01-13] MEDS: Cyanocobalamin (B-12) 1,000 MCG TABLET PO SCH (20:12)
[2017-01-14] MEDS: Ipratropium/Albuterol Neb 3 ML IH SCH ×4 (00:03→11:32)
[2017-01-14] MEDS: *HR* HYDROcodone/Acet 5/325 mg TABLET PO PRN ×3 (02:26→14:01)
[2017-01-14] MEDS: *HR* Heparin 5,000 UNIT/ML VIAL SQ SCH (05:18)
[2017-01-14 07:18] VITALS: BP 132/87
[2017-01-14] MEDS: Beclomethasone 80mcg MDI IH SCH (08:02)
[2017-01-14] MEDS: Folic Acid 1 MG TABLET PO SCH (09:26)
[2017-01-14] MEDS: Loratadine 10 MG TABLET PO SCH (09:26)
[2017-01-14] MEDS: Chlorhexidine Rinse 15 ML MOUTHWASH MM SCH (09:26)
[2017-01-14] MEDS: Vitamin B Complex/Vit C/Vit E 1 EACH TABLET PO SCH (09:26)
[2017-01-14] MEDS: Aspirin Enteric Coated 81 MG Tablet PO SCH (09:26)
[2017-01-14] MEDS: Isosorbide MONOnitrate (24 HR) 30 MG TAB.ER.24H PO SCH (09:26)
[2017-01-14] MEDS: Thiamine (B-1) 100 MG TABLET PO SCH (09:26)
[2017-01-14] MEDS: Sucralfate 1 GM TABLET PO SCH ×2 (09:26→12:52)
[2017-01-14] MEDS: Diltiazem CD (24hr) 240 MG CAPSULE PO SCH (09:27)
[2017-01-14] MEDS: Furosemide 40 MG TABLET PO SCH (09:27)
[2017-01-14] MEDS: Magnesium Oxide 400 MG TABLET PO SCH (09:27)
[2017-01-14] MEDS: Fluticasone Propionate Nasal 50 MCG/SPRAY BOTTLE NS SCH (09:28)
--- NOTE | 2017-01-14 10:22 | Discharge Summary ---
<Ruth Acosta - Last Filed: 01/14/17 13:25> Date of Encounter: 01/14/17 Time of Encounter: 10:00 - Discharge Diagnosis (1) Withdrawal symptoms, alcohol Priority: Primary Status: Acute Qualifiers: Complication of substance-induced condition: with delirium Qualified Code(s ): F10.231 - Alcohol dependence with withdrawal delirium (2) Acute exacerbation of chronic obstructive pulmonary disease (COPD) Priority: Primary Status: Acute (3) Post-tussive syncope Priority: Secondary Status: Acute - Discharge Medications Prescriptions: Vitamin B Complex/Vit C/Vit E [Stresstab] 1 each PO DAILY #30 tablet Home Medications: Albuterol Sulfate [Albuterol Inhaler] 2 puff IH Q4-6H PRN 05/07/15 [History] Folic Acid 1 mg PO DAILY 05/07/15 [History] Isosorbide MONOnitrate [Isosorbide Mononitrate ER] 30 mg PO DAILY 05/07/15 [ History] Omeprazole [PriLOSEC] 20 mg PO BID 05/07/15 [History] Thiamine HCl [Vitamin B-1] 100 mg PO DAILY 05/07/15 [History] Albuterol Neb [Proventil Neb] 2.5 mg IH Q4H PRN 04/24/16 [History] Sucralfate [Carafate] 1 gm PO QID 04/24/16 [History] Potassium Chloride 20 meq PO DAILY 30 Days 04/28/16 [Rx] Mometasone Furoate [Asmanex] 2 puff IH BID 06/30/16 [History] Phenytoin ER [Dilantin ER] 200 mg PO QAM 06/30/16 [History] Aspirin [Lo-Dose Aspirin EC] 81 mg PO DAILY 09/30/16 [History] Buspirone HCl [Buspar] 2.5 mg PO DAILY 09/30/16 [History] Cyanocobalamin (Vitamin B-12) [Vitamin B-12] 100 mcg PO HS 09/30/16 [History] Diltiazem HCl [Diltiazem 24Hr Cd] 240 mg PO DAILY 09/30/16 [History] Ferrous Gluconate 324 mg PO DAILY 09/30/16 [History] Furosemide [Lasix] 40 mg PO AD 09/30/16 [History] Melatonin 6 mg PO HS 09/30/16 [History] Olodaterol HCl [Striverdi Respimat] 2 puff IH DAILY 09/30/16 [History] Sertraline [Zoloft] 50 mg PO QAM 09/30/16 [History] Baclofen [Lioresal] 10 mg PO Q6H PRN 01/06/17 [History] Chlorhexidine Gluconate [Peridex] 15 ml MM BID 01/06/17 [History] Fluticasone Propionate Nasal [Flonase] 50 mcg NS BID 01/06/17 [History] HydrOXYzine 10 mg PO Q6H PRN 01/06/17 [History] Ibuprofen [Motrin] 400 mg PO Q6H PRN 01/06/17 [History] Ipratropium/Albuterol Neb [Duoneb] 3 ml IH Q4H 01/06/17 [History] Lisinopril [Zestril] 2.5 mg PO DAILY 01/06/17 [History] Loratadine [Claritin] 10 mg PO DAILY 01/06/17 [History] Magnesium Oxide [Mag-Ox] 400 mg PO TID 01/06/17 [History] Oxygen 2 l NS AD 01/06/17 [History] PredniSONE 40 mg PO DAILY 01/06/17 [History] TraZODone 25 mg PO HS 01/06/17 [History] Vitamin B Complex/Vit C/Vit E [Stresstab] 1 each PO DAILY #30 tablet 01/13/17 [ Rx] Allergies/Adverse Reactions: Allergies Penicillins Allergy (Severe, Verified 01/06/17 20:52) Anaphylaxis diphenhydramine Allergy (Verified 01/06/17 20:52) See Comments fentanyl Allergy (Verified 01/06/17 20:52) See Comments lidocaine Allergy (Verified 01/06/17 20:52) See Comments midazolam Allergy (Verified 01/06/17 20:52) See Comments venlafaxine [From Effexor] Adverse Reaction (Unknown, Verified 01/06/17 20:52) See Comments "Made me go into a coma." Date of admission: 01/09/17 16:10 Primary care physician: PCP NO Consults: 01/09/17 17:00 Consult to Press Cutter [CONS] Routine Reason for SW Consult: ETOH 01/09/17 17:23 Consult to Press Cutter [CONS] Routine Reason for SW Consult: alcoholism 01/13/17 10:09 Consult to Occupational Therapy [CONS] Routine Comment: weakness, unsteady gait, heavy etoh use Consult to Physical Therapy [CONS] Routine Comment: weakness, unsteady gait, heavy etoh use Discharging clinician: Harris Ma Anticipated date of discharge: 01/14/17 - Patient Status Disposition: Transfer Inpatient Rehab Fac Condition: Good Functional capacity at discharge: uses cane/walker Overall status at discharge: patient is progressing back to baseline - Discharge Instructions Instructions: Heart Failure (DC), Atrial Fibrillation (DC), Chest Pain (DC), Acute Respiratory Distress Syndrome (DC), Cirrhosis (DC), Cirrhosis (GEN), Urinary Tract Infection in Men (DC), Chronic Obstructive Pulmonary Disease (DC) , Non-epileptic Seizures (DC), Non-epileptic Seizures (GEN), Alcohol Intoxication (DC), Alcohol Intoxication (GEN), Abuse of Alcohol (DC), Abuse of Alcohol (GEN), At-Risk Alcohol Use (DC), At-Risk Alcohol Use (GEN), Cigarette Smoking and Your Health, 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 Salmon is a 71 year old male. Patient would present to [place] with chief concern: fall following coughing spells, in setting of heavy alcohol use. Comorbidities would include: COPD, cirrhosis, CAD, depression, panic disorder. Hospital course: Initial concern for trauma around left periorbital region. Imaging studies: Cervical Spine CT 01/06/17 21:21 IMPRESSION: No acute abnormality of the cervical spine. Severe multilevel degenerative disc disease and hypertrophic changes. Head CT 01/06/17 21:21 IMPRESSION: No acute intracranial abnormality. He would have CXR disclosing: Chest X-Ray 01/06/17 20:59 IMPRESSION: 1. Subsegmental bibasilar atelectatic changes 2. No acute abnormalities are seen in the chest Started on empiric therapy and prednisone for COPD exacerbation. INfluenza A/B/H1N1, pertussis negative. Neck and shoulder pain likely secondary to trauma after posttussive syncope. Adjusted pain medications. Patient was started on CIWA protocol and did improve to date of discharge. Finished course COPD exacerbation 5 day course levaquin and prednisone. Concern for unsteady gait, prompted PT//OT floraal, who recommended inpatient rehab. At time of discharge, patient was clinically improved, hemodynamically stable, progressing to baseline, and agreeable with plan of care. He was exhibiting no signs of withdrawal. Patient was advised to seek immediate medical attention for any new or worsening symptoms including but not limited to fever, chills, chest pain, chest pressure, dyspnea, cough, abdominal pain, nausea, vomiting, diarrhea, bloody stool, urine and the patient voiced understanding. Patient will follow-up with primary care physician: at [facility]. - Time Spent with Patient Total time spent providing and/or coordinating discharge services: Greater than 30 minutes - Constitutional Vitals: Temp Pulse Resp BP Pulse Ox 97.9 F 67 18 132/87 93 01/14/17 07:16 01/14/17 07:16 01/14/17 08:04 01/14/17 07:16 01/14/17 08:04 General appearance: Present: cooperative, A&O X 3, pleasant, answers questions appropriately - Head Head exam: Present: atraumatic, normocephalic - Eye Eye exam: Present: EOMI, sclera anicteric - ENT ENT exam: Present: mucous membranes moist - Neck Neck exam general surgery: Present: supple, trachea midline - Respiratory Respiratory exam: Absent: rhonchi, wheezes, tachypnea - Cardiovascular Cardiovascular exam: Present: +S1, +S2. Absent: JVD - GI/Abdominal GI/Abdominal exam: Present: soft, no peritoneal signs. Absent: tenderness - Extremities Exam Extremities exam: Present: warm, radial pulses palpable and symetrical. Absent : pedal edema <Harris Ma - Last Filed: 01/14/17 19:15> Date of Encounter: 01/14/17 - Discharge Diagnosis (1) Acute and chronic respiratory failure Priority: Primary Status: Acute Qualifiers: Respiratory failure complication: hypoxia Qualified Code(s): J96.21 - Acute and chronic respiratory failure with hypoxia (2) Acute exacerbation of chronic obstructive pulmonary disease (COPD) Status: Acute (3) Post-tussive syncope Status: Acute (4) ETOH abuse Priority: Secondary Status: Chronic (5) Afib Priority: Secondary Status: Chronic Qualifiers: Atrial fibrillation type: paroxysmal Qualified Code(s): I48.0 - Paroxysmal atrial fibrillation (6) CAD (coronary artery disease) Priority: Secondary Status: Chronic Qualifiers: Coronary Disease-Associated Artery/Lesion type: unspecified vessel or lesion type [place] vs. transplanted heart: [place] heart Associated angina: without angina Qualified Code(s): I25.10 - Atherosclerotic heart disease of [place] coronary artery without angina pectoris (7) Obesity (BMI 30-39.9) Priority: Secondary Status: Acute Date of admission: 01/09/17 16:10 Primary care physician: PCP NO Consults: 01/09/17 17:00 Consult to Press Cutter [CONS] Routine Reason for SW Consult: ETOH 01/09/17 17:23 Consult to Press Cutter [CONS] Routine Reason for SW Consult: alcoholism 01/13/17 10:09 Consult to Occupational Therapy [CONS] Routine Comment: weakness, unsteady gait, heavy etoh use Consult to Physical Therapy [CONS] Routine Comment: weakness, unsteady gait, heavy etoh use Hospital course: Mr. Salmon is a 71 year old male - Time Spent with Patient Total time spent providing and/or coordinating discharge services: 38min - Constitutional Vitals: Temp Pulse Resp BP Pulse Ox 97.9 F 67 16 132/87 97 01/14/17 07:16 01/14/17 07:16 01/14/17 11:34 01/14/17 07:16 01/14/17 11:34 - Attending Attestation I examined this patient and my medical decision-making was reviewed with the Resident Physician on 01/14/17. I agree with the documented findings, disposition and treatment plan as described except to the extent set forth below. Mr. Salmon is doing better today. His breathing is baseline. No fever and vitals stable. He is ready to go to SNF. Exam Alert. Comfortable Heart reg Some rhonchi noted Plan D/C to rehab today.
[2017-01-14] MEDS: Acetaminophen 325 MG TABLET PO PRN (12:52)
--- NOTE | 2017-01-14 13:33 | Physician Discharge Referral ---
ExtendedCare Referral Info Transfer To: [facility] Provider in Charge: Dr. Harris Ma Provider in Charge after Transfer: PCP Institutional Level of Care: Intermediate - MR - Diagnosis (1) Withdrawal symptoms, alcohol Status: Acute (2) Acute exacerbation of chronic obstructive pulmonary disease (COPD) Status: Acute (3) Post-tussive syncope Status: Acute - Transfer Medications Prescriptions: Vitamin B Complex/Vit C/Vit E [Stresstab] 1 each PO DAILY #30 tablet Home Medications: Albuterol Sulfate [Albuterol Inhaler] 2 puff IH Q4-6H PRN 05/07/15 [History] Folic Acid 1 mg PO DAILY 05/07/15 [History] Isosorbide MONOnitrate [Isosorbide Mononitrate ER] 30 mg PO DAILY 05/07/15 [ History] Omeprazole [PriLOSEC] 20 mg PO BID 05/07/15 [History] Thiamine HCl [Vitamin B-1] 100 mg PO DAILY 05/07/15 [History] Albuterol Neb [Proventil Neb] 2.5 mg IH Q4H PRN 04/24/16 [History] Sucralfate [Carafate] 1 gm PO QID 04/24/16 [History] Potassium Chloride 20 meq PO DAILY 30 Days 04/28/16 [Rx] Mometasone Furoate [Asmanex] 2 puff IH BID 06/30/16 [History] Phenytoin ER [Dilantin ER] 200 mg PO QAM 06/30/16 [History] Aspirin [Lo-Dose Aspirin EC] 81 mg PO DAILY 09/30/16 [History] Buspirone HCl [Buspar] 2.5 mg PO DAILY 09/30/16 [History] Cyanocobalamin (Vitamin B-12) [Vitamin B-12] 100 mcg PO HS 09/30/16 [History] Diltiazem HCl [Diltiazem 24Hr Cd] 240 mg PO DAILY 09/30/16 [History] Ferrous Gluconate 324 mg PO DAILY 09/30/16 [History] Furosemide [Lasix] 40 mg PO AD 09/30/16 [History] Melatonin 6 mg PO HS 09/30/16 [History] Olodaterol HCl [Striverdi Respimat] 2 puff IH DAILY 09/30/16 [History] Sertraline [Zoloft] 50 mg PO QAM 09/30/16 [History] Baclofen [Lioresal] 10 mg PO Q6H PRN 01/06/17 [History] Chlorhexidine Gluconate [Peridex] 15 ml MM BID 01/06/17 [History] Fluticasone Propionate Nasal [Flonase] 50 mcg NS BID 01/06/17 [History] HydrOXYzine 10 mg PO Q6H PRN 01/06/17 [History] Ibuprofen [Motrin] 400 mg PO Q6H PRN 01/06/17 [History] Ipratropium/Albuterol Neb [Duoneb] 3 ml IH Q4H 01/06/17 [History] Lisinopril [Zestril] 2.5 mg PO DAILY 01/06/17 [History] Loratadine [Claritin] 10 mg PO DAILY 01/06/17 [History] Magnesium Oxide [Mag-Ox] 400 mg PO TID 01/06/17 [History] Oxygen 2 l NS AD 01/06/17 [History] PredniSONE 40 mg PO DAILY 01/06/17 [History] TraZODone 25 mg PO HS 01/06/17 [History] Vitamin B Complex/Vit C/Vit E [Stresstab] 1 each PO DAILY #30 tablet 01/13/17 [ Rx] Allergies/Adverse Reactions: Allergies Penicillins Allergy (Severe, Verified 01/06/17 20:52) Anaphylaxis diphenhydramine Allergy (Verified 01/06/17 20:52) See Comments fentanyl Allergy (Verified 01/06/17 20:52) See Comments lidocaine Allergy (Verified 01/06/17 20:52) See Comments midazolam Allergy (Verified 01/06/17 20:52) See Comments venlafaxine [From Effexor] Adverse Reaction (Unknown, Verified 01/06/17 20:52) See Comments "Made me go into a coma." - Respiratory Orders Smoking Cessation: Smoking cessation has been advised. For more information, call the [employer] [facility] Tobacco Quit Line at 3-916-EJZV-NOW. - Ancillary Orders May use pressure relief devices daily prn - Advance Directives Living Will: No Power of Lithographic Press Feeder: No Code Status: Full Code - Mobility Orders Chair, Ambulate - Rehabiliation Orders Rehab Potential: Good Rehab Orders: ROM Exercises, Evaluation for Physical Therapy, Evaluation for Occupational Therapy - Treatments Skin tear care topically daily PRN per policy - Diet Orders No Added Salt (MARIBEL), Cardiac CERTIFICATION: I certify that the transfer of the above named patient to an Extended Care Facility is necessary for the continuing treatment of the diagnosis listed. The above information is true and accurate reflection of patient's current condition. Confidential - Redisclosure prohibited without a patient's written consent.
== END 2017-01-14 15:06 | DRG 190 ==
LOC: 2NENU 20:49 → EMEROO 20:49 → 2NENU 01-07 00:38 → SUATTDRO 01-09 16:10
PROVIDERS: ADMIT Internal Medicine; ATTEND Internal Medicine